=== PATIENT | female | born 1995 | race Caucasian/White ===

== ENCOUNTER 2020-03-24 20:05 | Emergency (ER) | payer OTHER, SELFPAY ==
[2020-03-24 20:25] VITALS: PULSE 93; RESP 16; TEMP 36.4; O2SAT 98
--- NOTE | 2020-03-24 21:15 | ED.FEMALEGU ---
HPI - Female Genitourinary General Chief complaint: CHARGER Stated complaint: bacterial infection,wants to be tested for STDs Source: patient Mode of arrival: ambulatory Limitations: no limitations History of Present Illness HPI Narrative: This is 25-year-old female that presents with a a concern that she acquired an STD has a pneumonia type vaginal odor with no discharge, currently no vaginal discharge or drainage no abdominal pain no dysuria no flank pain or tenderness no hematuria, no fever chills no diarrhea constipation. Patient is concerned of having unprotected intercourse. MD elicited complaint: possible STD Pertinent past history: recurrent UTIs Onset (ago): day(s) Location of symptoms: external genitalia Female Urogenital Radiation: Non-Radiating Consistency: constant Vaginal discharge: none Vaginal bleeding: none Associated symptoms: denies other symptoms Related Data Home Medications Medication Instructions Recorded Confirmed albuterol sulfate 2 puff INHALATION DAILY 05/18/19 03/24/20 clonazepam 0.5 mg PO BID 03/24/20 03/24/20 Allergies Allergy/AdvReac Type Severity Reaction Status Date / Time Sulfonamides Allergy Intermediate Uncoded 10/19/16 16:07 SULFA AND CATS Allergy Mild Uncoded 07/29/07 17:59 Review of Systems Review of Systems: All systems reviewed & are unremarkable except as noted in HPI and below PMFSH Past Medical History Medical History Anxiety Social History Social History Smoking status: Former smoker Gender identity (if verbalized by the patient): Female Exam Const: General: no acute distress and alert Orientation/consciousness: patient oriented x3 HENMT: Head: normal to inspection Eyes: General: appearance normal, both eyes and all related structures Pupils: Equal, round and reactive pupils present EOM: EOMs intact bilaterally Neck: Neck: normal visual inspection, no lymphadenopathy and no meningeal signs Chest: Chest palpation & inspection: normal inspection of the chest Resp: Effort & Inspection: normal respiratory effort Auscultation: clear to auscultation bilaterally Cardio: Rate: regular rate Rhythm: regular rhythm : General: Yes no CVA tenderness Speculum Exam - Vagina: normal appearance of the vagina Speculum Exam - Cervix: normal appearance of the cervix Skin: General skin exam: normal color Rashes: no rashes Extrem: General: normal to inspection and no pedal edema Psych: Mental Status: mental status grossly normal Course Course Emergency Course: pelvic exam was unremarkable with no vaginal irritation or discharge no cervical irritation no cervical motion tenderness. Vital Signs Vital signs: Vital Signs Temperature 36.4 C 03/24/20 20:25 Pulse Rate 93 03/24/20 20:25 Respiratory Rate 16 03/24/20 20:25 Pulse Oximetry 98 03/24/20 20:25 Temperature 36.4 C 03/24/20 20:25 Pulse Rate 93 03/24/20 20:25 Respiratory Rate 16 03/24/20 20:25 Pulse Oximetry 98 03/24/20 20:25 MDM - Female Genitourinary Lab Data Labs: Lab Results 03/24/20 03/24/20 03/24/20 Range/Units 20:48 20:55 20:55 CSF HIV-1 p24 Ag Scrn Pending RPR Pending RPR Titer Add Testing Pending C.trachomatis RNA (TMA) Pending HIV 1&2 Antibody Rapid Pending N.gonorrhoeae RNA (TMA) Pending Critical Care Time Critical Care Time Critical Care Time: No Discharge Plan Discharge Clinical Impression: Exposure to STD Patient Disposition: Home, Self-Care Condition: Stable Instructions: Antibiotic Form, Sexually Transmitted Diseases (ED), Safe Sex Practices (ED) Additional Instructions: take medicine as prescribed and follow-up with primary care physician within 1 to 2 weeks further evaluation and treatment. Prescriptions: New doxycycline hyclate 100 mg capsule 100 mg PO DAILY Qty: 14
[2020-03-24 21:39] LABS: HIV 1 P24 AG Negative (Negative); HIV 1/2 AB Negative (Negative)
[2020-03-24] MEDS: cefTRIAXone 500 MG VIAL IM (21:42)
[2020-03-24] MEDS: DOXYCYCLINE HYCLATE 100 MG TABLET PO (21:42)
[2020-03-24] MEDS: LIDOCAINE HCL 1% LOCAL INJ 20 ML VIAL (21:42)
[2020-03-24 22:10] VITALS: PULSE 90; RESP 15; TEMP 36.6; O2SAT 100
[2020-03-27 13:33] LABS: RPR Screen Non-Reactive (Non-Reactive)
== END 2020-03-24 22:12 | disposition home or self-care (01) ==
PROVIDERS: Emergency Provider Emergency Medicine; PCP Family Medicine
DX: Z20.2 Contact with and (suspected) exposure to infections with a predominantly sexual mode of transmission (principal)
CPT/HCPCS: 36415; 86592; 86703; 87491; 87591; 96372; 99283; 99284; A9270; J0696

== ENCOUNTER 2021-06-19 11:00 | Outpatient (CLI) | payer OTHER, SELFPAY | END 2021-06-19 11:01 | disposition home or self-care (01) | LOC: ANHAUDIO 11:03 | PROVIDERS: PCP Family Medicine; Visit Provider Nurse Practitioner Family | DX: H91.93 Unspecified hearing loss, bilateral (principal) | CPT/HCPCS: 92557; 92567 ==

== ENCOUNTER 2021-07-21 19:30 | Emergency (ER) | payer OTHER, SELFPAY ==
[2021-07-21 19:34] VITALS: BP 144/75; PULSE 127; RESP 20; TEMP 36.6; O2SAT 97
--- NOTE | 2021-07-21 21:20 | PC.NURSE ---
Pt to desk stating I'm going to go to a different hospital because I'm not about to wait all night .
== END 2021-07-21 21:36 | disposition left against medical advice (07) ==
LOC: ANHED 21:29
PROVIDERS: PCP Obstetrics & Gynecology
DX: O99.891 Other specified diseases and conditions complicating pregnancy (principal); R06.02 Shortness of breath; Z3A.18 18 weeks gestation of pregnancy
CPT/HCPCS: 99199

== ENCOUNTER 2021-08-10 12:30 | Outpatient (CLI) | payer OTHER, SELFPAY ==
[2021-08-10 12:58] VITALS: BP 137/88; PULSE 95
[2021-08-10 13:14] LABS: Basophils Percent Auto 0.3 % (0.2-1.2); Eosinophils Absolute Auto 0.1 K/mm3 (0-0.3); Eosinophils Percent Auto 1.3 % (0-4.4); Hematocrit 34.5 % (37.0-47.0); Hemoglobin 11.6 g/dL (12.0-15.0); Immature Granulocyte Absolute 0.05 K/mm3 (0.00-0.031); Immature Granulocyte Percent A 0.5 % (0-0.5); Immature Platelet Fraction Pct 3.6 % (0.9-11.2); Lymphocytes Absolute Auto 2.09 K/mm3 (0.9-3.2); Lymphocytes Percent Auto 19.8 % (18.3-44.2); Mean Corpuscular HGB Conc 33.6 g/dl (32-36); Mean Corpuscular Hemoglobin 31.1 pg (26-34); Mean Corpuscular Volume 92.5 fl (80-100); Mean Platelet Volume 9.8 fl (7.4-10.4); Monocytes Absolute Auto 0.6 K/mm3 (0.1-0.6); Monocytes Percent Auto 5.2 % (2.6-8.5); Neutrophils Absolute Auto 7.7 K/mm3 (1.3-6.7); Neutrophils Percent Auto 72.9 % (45.5-73.1); Platelet Count Result 347 k/mm3 (150-375); Red Blood Count 3.73 M/mm3 (4.2-5.4); Red Cell Distribution Width 13.2 % (11.5-14.5); White Blood Count 10.5 K/mm3 (4.5-10.0)
[2021-08-10 13:16] VITALS: BP 134/85; PULSE 83
[2021-08-10 13:25] LABS: Alanine Aminotransferase 12 U/L (4-35); Albumin Level 3.8 g/dL (3.5-5.1); Alkaline Phosphatase 71 U/L (38-126); Anion Gap 4 mmol/L (8-16); Aspartate Amino Transferase 17 U/L (14-36); Bilirubin,Total 0.7 mg/dL (0.2-1.3); Blood Urea Nitrogen 6 mg/dL (7-17); Calcium 9.3 mg/dL (8.4-10.2); Carbon Dioxide 24 mmol/L (22-30); Chloride 104 mmol/L (98-107); Estimated Glomerular Filt Rate > 60; Glucose 85 mg/dL (65-110); Potassium 4.1 mmol/L (3.4-5.0); Sodium 132 mmol/L (137-145); Uric Acid 5.4 mg/dL (2.5-7.5)
[2021-08-10 13:46] VITALS: BP 132/81; PULSE 78
[2021-08-10 13:47] LABS: Creatinine Urine 170.5 mg/dL
[2021-08-10 13:49] LABS: Add Urine Microscopic? YES; Appearance Urine Clear (Clear); Bacteria Urine Trace /hpf; Bilirubin Urine Negative (Negative); Blood Urine Negative (Negative); Color Urine Yellow (Yellow); Glucose Urine UA Negative (Negative); Ketones Urine Negative (Negative); Leukocyte Esterase Ur Negative LEU/UL (NEGATIVE); Mucus Urine Rare /lpf; Nitrate Urine Negative (Negative); Protein Urine Negative (Negative); RBC Urine 0-2 /hpf (0-2); Specific Grav Ur 1.016 (1.001-1.035); Squamous Epithelial Cell Urine Many /hpf (Few); Urobilinogen Urine Negative mg/dL (<2.0)
[2021-08-10 14:01] VITALS: BP 126/75; PULSE 80
[2021-08-10 14:16] VITALS: BP 134/74; PULSE 79
[2021-08-10 14:31] VITALS: BP 131/76; PULSE 79
[2021-08-10 15:29] LABS: Total Protein Urine Random < 5 mg/dL
[2021-08-10 15:30] LABS: Ur Ttl Prot Creatinine Ratio < 0.03 mg/mg (0-0.20)
== END 2021-08-10 15:50 | disposition home or self-care (01) ==
LOC: ANHOBOP 12:33 → ANHOBPP 12:34
PROVIDERS: Visit Provider Obstetrics & Gynecology
DX: O13.9 Gestational [pregnancy-induced] hypertension without significant proteinuria, unspecified trimester (principal); Z3A.00 Weeks of gestation of pregnancy not specified
CPT/HCPCS: 36415; 80053; 81001; 82570; 84156; 84550; 85025; 85055; 87086; 87088; 99199

== ENCOUNTER 2021-08-25 18:38 | Observation (INO) | payer OTHER, SELFPAY ==
[2021-08-25 19:06] VITALS: BP 130/63; PULSE 101
[2021-08-25] MEDS: DEXTROSE 5%/0.45% SOD CHL 1,000 ML 999 ML IV CONT (19:29)
--- NOTE | 2021-08-25 19:40 | OBADM ---
This patient, Shannan Morrow, admitted to the OB room OB Post 115 for observation. Patient/family oriented to hospital policies and general routines including ID bracelet, bed and alarms, visiting hours, pain management, procedures, bathroom and other care routines, personal items, smoking policy, room service/diet, and visiting hours. Patient/Family are encouraged to report perceived risks to care and to ask questions if they do not understand what they are told or what they should do.
[2021-08-25 19:41] VITALS: BMI 43.0
[2021-08-25] MEDS: ONDANSETRON INJ 4 MG/2 ML VIAL IV PUSH (20:24)
--- NOTE | 2021-09-02 08:57 | PM.OBTRLD ---
OB - Triage/Final Diagnosis Visit Information Comments/Additional reasons for admission: I have assessed the risk for this patient, Shannan Morrow, and determined that she would benefit from observation care. Final Diagnosis (1) Viral gastroenteritis: Code(s): A08.4 - Viral intestinal infection, unspecified Status: Acute
== END 2021-08-25 20:51 | disposition home or self-care (01) ==
PROVIDERS: Admitting Provider Obstetrics & Gynecology; Visit Provider Obstetrics & Gynecology
DX: O99.612 Diseases of the digestive system complicating pregnancy, second trimester (principal); A08.4 Viral intestinal infection, unspecified; Z3A.22 22 weeks gestation of pregnancy
CPT/HCPCS: 96372; G0378; G0379; J2405

== ENCOUNTER 2021-11-01 08:55 | Outpatient (RCR) | payer OTHER, SELFPAY ==
[2021-09-11 09:25] VITALS: BP 124/67; PULSE 81
[2021-11-01 09:23] VITALS: BP 118/70; PULSE 82
== END 2021-12-10 23:59 | disposition home or self-care (01) ==
LOC: ANHOBOP 08:55
PROVIDERS: Visit Provider Obstetrics & Gynecology
DX: O99.891 Other specified diseases and conditions complicating pregnancy (principal); Z48.89 Encounter for other specified surgical aftercare; Z3A.24 24 weeks gestation of pregnancy; O24.419 Gestational diabetes mellitus in pregnancy, unspecified control; O36.8130 Decreased fetal movements, third trimester, not applicable or unspecified; Z3A.32 32 weeks gestation of pregnancy
CPT/HCPCS: 59025

== ENCOUNTER 2021-12-11 18:46 | Observation (INO) | payer OTHER, SELFPAY ==
[2021-12-11 19:05] VITALS: BMI 42.7
[2021-12-11 19:06] VITALS: BP 135/94; PULSE 88
[2021-12-11 19:16] VITALS: BP 132/89; PULSE 80
--- NOTE | 2021-12-11 19:20 | PC.NURSE ---
called [place] CNM notified pt admission for Diarrhea. Mede aware of Hx of Cholecystectomy last January. No contractions, reactive tracing. okay to discharge.
[2021-12-11 19:48] VITALS: BP 132/89; PULSE 65
--- NOTE | 2021-12-16 07:29 | PM.OBTRLD ---
OB - Triage/Final Diagnosis Visit Information Date of evaluation: 12/12/21 Comments/Additional reasons for admission: I have assessed the risk for this patient, Shannan Morrow, and determined that she would benefit from observation care.
--- NOTE | 2021-12-16 07:30 | PM.OBTRLD ---
OB - Triage/Final Diagnosis Visit Information Date of evaluation: 12/12/21 Reason for evaluation: other (diarrhea) Comments/Additional reasons for admission: I have assessed the risk for this patient, Shannan Joseph Morrow, and determined that she would benefit from observation care.
== END 2021-12-11 19:35 | disposition home or self-care (01) ==
PROVIDERS: Admitting Provider Obstetrics & Gynecology; Visit Provider Obstetrics & Gynecology
DX: O99.613 Diseases of the digestive system complicating pregnancy, third trimester (principal); R19.7 Diarrhea, unspecified; Z3A.37 37 weeks gestation of pregnancy
CPT/HCPCS: 59025; G0378; G0379

== ENCOUNTER 2021-12-16 14:49 | Outpatient (CLI) | payer OTHER, SELFPAY ==
[2021-12-16 15:10] VITALS: TEMP 36.6
[2021-12-16 15:19] VITALS: BP 127/71; PULSE 79
[2021-12-16 15:46] VITALS: BP 130/67; PULSE 94
[2021-12-16 15:47] LABS: Basophils Percent Auto 0.4 % (0.2-1.2); Eosinophils Absolute Auto 0.1 K/mm3 (0-0.3); Eosinophils Percent Auto 0.8 % (0-4.4); Hematocrit 33.7 % (37.0-47.0); Hemoglobin 11.1 g/dL (12.0-15.0); Immature Granulocyte Absolute 0.03 K/mm3 (0.00-0.031); Immature Granulocyte Percent A 0.3 % (0-0.5); Lymphocytes Absolute Auto 1.89 K/mm3 (0.9-3.2); Lymphocytes Percent Auto 20.7 % (18.3-44.2); Mean Corpuscular HGB Conc 32.9 g/dl (32-36); Mean Corpuscular Hemoglobin 30.2 pg (26-34); Mean Corpuscular Volume 91.6 fl (80-100); Mean Platelet Volume 9.1 fl (7.4-10.4); Monocytes Absolute Auto 0.5 K/mm3 (0.1-0.6); Monocytes Percent Auto 5.5 % (2.6-8.5); Neutrophils Absolute Auto 6.6 K/mm3 (1.3-6.7); Neutrophils Percent Auto 72.3 % (45.5-73.1); Platelet Count Result 348 k/mm3 (150-375); Red Blood Count 3.68 M/mm3 (4.2-5.4); Red Cell Distribution Width 14.6 % (11.5-14.5); White Blood Count 9.1 K/mm3 (4.5-10.0)
[2021-12-16 15:53] LABS: Creatinine Urine 49.5 mg/dL; Total Protein Urine Random 11 mg/dL; Ur Ttl Prot Creatinine Ratio 0.22 mg/mg (0-0.20)
[2021-12-16 15:58] LABS: Alanine Aminotransferase 16 U/L (6-35); Albumin Level 3.6 g/dL (3.5-5.1); Alkaline Phosphatase 157 U/L (38-126); Anion Gap 6 mmol/L (8-16); Aspartate Amino Transferase 17 U/L (14-36); Bilirubin,Total 0.4 mg/dL (0.2-1.3); Blood Urea Nitrogen 6 mg/dL (7-17); Calcium 8.8 mg/dL (8.4-10.2); Carbon Dioxide 21 mmol/L (22-30); Chloride 109 mmol/L (98-107); Estimated Glomerular Filt Rate > 60; Glucose 91 mg/dL (65-110); Potassium 3.9 mmol/L (3.4-5.0); Sodium 136 mmol/L (137-145); Uric Acid 5.3 mg/dL (2.5-7.5)
[2021-12-16 16:01] VITALS: BP 108/60; PULSE 80
[2021-12-16 16:03] LABS: Appearance Urine Clear (Clear); Bilirubin Urine Negative (Negative); Blood Urine Negative (Negative); Color Urine Yellow (Yellow); Glucose Urine UA Negative (Negative); Ketones Urine Negative (Negative); Leukocyte Esterase Ur Negative LEU/UL (NEGATIVE); Nitrate Urine Negative (Negative); Protein Urine Negative (Negative); Specific Grav Ur 1.015 (1.001-1.035)
[2021-12-16 16:05] LABS: Add Urine Microscopic? NO
[2021-12-16 16:15] VITALS: BP 127/64; PULSE 132
[2021-12-16 16:30] VITALS: BP 129/75; PULSE 79
== END 2021-12-16 16:45 | disposition home or self-care (01) ==
LOC: ANHOBOP 14:57 → ANHOBPP 14:58
PROVIDERS: Visit Provider Advanced Practice Midwife
DX: O13.9 Gestational [pregnancy-induced] hypertension without significant proteinuria, unspecified trimester (principal); Z3A.00 Weeks of gestation of pregnancy not specified
CPT/HCPCS: 36415; 59025; 80053; 81003; 82570; 84156; 84550; 85025; 87086; 99199

== ENCOUNTER 2021-12-21 15:50 | Inpatient (IN) | payer OTHER, SELFPAY ==
[2021-12-21] VITALS (19 sets, daily range): BP systolic 118–142; BP diastolic 44–93; PULSE 78–96; TEMP 36.3–36.4; BMI 43.7
--- OUTSIDE RECORDS SUMMARY | 2021-12-21 15:55 | XMS_ITS | Encounter Summary ---
:1995 Author Reason for Visit OB visit OB [id number] EDC 12/26/2021 LMP 03/21/2021 Assessment and Plan Assessment Note Patient is _38__weeks . Discuss ed plan. 1. Routine care Discussion Note: None recorded.Patient educational handouts: No information available. Plan of Care Reminders Provider Appointments Repeat Pap on or around 01/29/2022 Diane Hendrix MD ? Shilo on or around 02/05/2022 TRACE ozuna RN Lab None recorded. ? ? Referral None recorded. ? ? Procedures None recorded. ? ? Surgeries None recorded. ? ? Imaging None recorded. ? ? Medications Name Start Date ? ? albuterol sulfate 2.5 mg/3 mL (0.083 %) solution for n ebulization ? albuterol sulfate HFA 90 mcg/actuation aerosol inhaler ? clindamycin 1 % topical gel ? APPLY A THIN LAYER TO THE AFFECTED AREA(S) BY TOPICAL ROUTE 2 TIMES PER DAY fluticasone propionate 50 mcg/actuation nasal spray,arias spension ? loperamide 2 mg capsule ? metoclopramide 10 mg tablet ? Take 1 tablet by mouth three times a day as needed fo r nausea and vomiting montelukast 10 mg tablet ? Take 1 tablet every day by oral route. ofloxacin 0.3 % eye drops ? ondansetron HCl 4 mg tablet ? TAKE 1 TABLET BY MOUTH EVERY 4 TO 6 HOURS NEEDED OneTouch Delica Plus Lancet 33 gauge ? USE 4 LANCETS PER DAY TO TEST BLOOD SUGAR AT FASTING AND 1 HOUR AFTER A MEAL OneTouch Verio Flex Meter ? OneTouch Verio test strips ? penicillin V potassium 500 mg tablet ? Take 1 tablet 3 times a day by oral route for 10 days . sertraline 50 mg tablet ? TAKE 1 TABLET BY MOUTH EVERY DAY Symbicort 160 mcg-4.5 mcg/actuation HFA ae
--- OUTSIDE RECORDS SUMMARY | 2021-12-21 15:55 | XMS_ITS ---
:1995 Author Care Team Providers Name Role Phone Diane Hendrix Primary Care Provider Unavailable Allergies Code Code System Name Reaction Severity Status Onset Sulfa (Sulfonamide Antibiotics) ? ? Active ? Medications Name Status Start Date Stop Date ? ? albuterol sulfate 2.5 mg/3 mL (0.083 %) solution for Active ? Not available nebulization albuterol sulfate HFA 90 mcg/actuation aerosol inhaler Active ? Not available amoxicillin 500 mg capsule Completed ? 05/18 amoxicillin 875 mg tablet Completed ? 2021 amoxicillin 875 mg-potassium clavulanate 125 mg tablet Completed ? 10/02/2021 azelastine 137 mcg (0.1 %) nasal spray aerosol Completed ? 05/18/2021 buspirone 15 mg tablet Completed ? cefuroxime axetil 250 mg tablet Completed ? 05/18/2021 cephalexin 500 mg capsule Completed ? 2021 clindamycin 1 % topical gel Active ? Not available clonazepam 0.5 mg tablet Completed ? 021 cyclobenzaprine 5 mg tablet Completed ? 05/04 dicyclomine 10 mg capsule Completed ? 2020 doxycycline hyclate 100 mg capsule Completed ? 05/18/2021 fluconazole 150 mg tablet Completed ? 2021 fluticasone propionate 50 mcg/actuation nasal Active ? Not available spray,suspension hydrocodone 5 mg-acetaminophen 325 mg tablet Completed ? 10/02/2021 ibuprofen 600 mg tablet Completed ? 05/18/20 ibuprofen 800 mg tablet Completed ? 05/18/20 21 loperamide 2 mg capsule Active ? Not avai lable methylprednisolone 4 mg tablets in a dose pack Completed ? 05/18/2021 metoclopramide 10 mg tablet Active ? Not available metronidazole 0.75 % vaginal gel Completed ? 07/08/2021
--- OUTSIDE RECORDS SUMMARY | 2021-12-21 15:56 | XMS_ITS | Encounter Summary ---
:1995 Author Reason for Visit None recorded. Assessment and Plan 1. Gestational diabetes mellitus, class A>1< ? non-stress test Discussion Note: None recorded.Patient educational handouts: No information available. Plan of Care Reminders Provider Appointments Repeat Pap on or around 01/29/2022 Diane Hendrix MD ? Xany on or around 02/05/2022 TRACE ozuna RN Lab None recorded. ? ? Referral None recorded. ? ? Procedures None recorded. ? ? Surgeries None recorded. ? ? Imaging Non-stress Test 12/09/2021 [place] Medications Name Start Date ? ? albuterol [...] EVERY DAY Symbicort 160 mcg-4.5 mcg/actuation HFA aerosol inhale r ?
--- OUTSIDE RECORDS SUMMARY | 2021-12-21 15:56 | XMS_ITS | Encounter Summary ---
[...] None recorded. ? ? Imaging Non-stress Test 11/16/2021 [place] Medications Name Start Date ? ? albuterol [...]
--- OUTSIDE RECORDS SUMMARY | 2021-12-21 15:56 | XMS_ITS | Encounter Summary ---
:1995 Author Reason for Visit OB visit OB [id number] EDC 12/26/2021 LMP 03/21/2021 Assessment and Plan Assessment Note Patient is _35__weeks . Discuss ed plan. 1. Routine care 2. Hidradenitis suppurativa ? clindamycin 1 % topical gel Discussion Note: None recorded.Patient educational handouts: No [...]
--- OUTSIDE RECORDS SUMMARY | 2021-12-21 15:56 | XMS_ITS | Encounter Summary ---
:1995 Author Reason for Visit None recorded. Assessment and Plan 1. Maternal obesity complicating pregna ncy, childbirth and the puerperium, antepartum ? US, obstetric, biophysical profile + non-stress test Discussion Note: None recorded.Patient educational handouts: No information available. Plan of Care Reminders Provider Appointments Repeat Pap on or around Diane pascual MD 01/29/2022 ? Shilo on or around RN Schedule, RN 02/05/2022 Lab None recorded. ? ? Referral None recorded. ? ? Procedures None recorded. ? ? Surgeries None recorded. ? ? Imaging US, Obstetric, 11/25/2021 [place] Biophysical Profile + Non-stress Test Medications Name Start Date ? ? albuterol [...] Take 1 tablet 3 times a day b
--- OUTSIDE RECORDS SUMMARY | 2021-12-21 15:56 | XMS_ITS | Encounter Summary ---
:1995 Author Reason for Visit OB visit OB [id number] EDC 12/26/2021 LMP 03/21/2021 Assessment and Plan Assessment Note Patient is _37__weeks . Discuss ed plan. 1. Acute abscess of skin and/or subcuta neous tissue f/u one week Discussion Note: None recorded.Patient educational handouts: No information available. Plan of Care Reminders Provider Appointments Repeat Pap on or around 01/29/2022 Diane Hendrix MD ? [place] on or around 02/05/2022 TRACE ozuna RN [...] mg tablet ? TAKE 1 TABLET BY M
--- OUTSIDE RECORDS SUMMARY | 2021-12-21 15:56 | XMS_ITS | Encounter Summary ---
:1995 Author Reason for Visit None recorded. Assessment and Plan 1. Gestational diabetes mellitus, class A>1< ? US, obstetric, biophysical profile Discussion Note: None recorded.Patient educational handouts: No information available. Plan of Care Reminders Provider Appointments Repeat Pap on or around Diane pascual MD 01/29/2022 ? Shilo on or around RN Schedule, RN 02/05/2022 Lab None recorded. ? ? Referral None recorded. ? ? Procedures None recorded. ? ? Surgeries None recorded. ? ? Imaging US, Obstetric, 11/09/2021 [place] Biophysical Profile Medications Name Start Date ? ? albuterol [...]
--- OUTSIDE RECORDS SUMMARY | 2021-12-21 15:56 | XMS_ITS | Encounter Summary ---
[...] None recorded. ? ? Imaging Non-stress Test 12/16/2021 [place] Medications Name Start Date ? ? albuterol [...]
--- OUTSIDE RECORDS SUMMARY | 2021-12-21 15:56 | XMS_ITS | Encounter Summary ---
:1995 Author Reason for Visit None recorded. Assessment and Plan 1. Maternal obesity complicating pregna ncy, childbirth and the puerperium, antepartum ? US, obstetric, follow-up Discussion Note: None recorded.Patient educational handouts: No information available. Plan of Care Reminders Provider Appointments Repeat Pap on or around Diane pascual MD 01/29/2022 ? Shilo on or around RN Schedule, RN 02/05/2022 Lab None recorded. ? ? Referral None recorded. ? ? Procedures None recorded. ? ? Surgeries None recorded. ? ? Imaging US, Obstetric, 11/16/2021 [place] Follow-up Medications Name Start Date ? ? albuterol [...]
--- OUTSIDE RECORDS SUMMARY | 2021-12-21 15:56 | XMS_ITS | Encounter Summary ---
:1995 Author Reason for Visit OB visit Assessment and Plan Assessment Note Patient is ___weeks . Discussed plan. 1. Routine care Discussion Note: None [...] mcg-4.5 mcg/actuation HFA aerosol inhale r ? INHALE 2 PUFFS BY MOUTH TWICE AMINAH
--- OUTSIDE RECORDS SUMMARY | 2021-12-21 15:56 | XMS_ITS | Encounter Summary ---
[...] None recorded. ? ? Imaging Non-stress Test 12/01/2021 [place] Medications Name Start Date ? ? albuterol [...]
--- OUTSIDE RECORDS SUMMARY | 2021-12-21 15:56 | XMS_ITS | Encounter Summary ---
[...] None recorded. ? ? Imaging Non-stress Test 11/25/2021 [place] Medications Name Start Date ? ? albuterol [...]
--- OUTSIDE RECORDS SUMMARY | 2021-12-21 15:56 | XMS_ITS | Encounter Summary ---
:1995 Author Reason for Visit OB visit Assessment and Plan 1. Abscess of vulva ? cephalexin 500 mg capsule 2. Gestational diabetes mellitus 3. Maternal obesity complicating pregna ncy, childbirth and the puerperium, antepartum Discussion Note: None recorded.Patient educational handouts: No [...]
--- OUTSIDE RECORDS SUMMARY | 2021-12-21 15:56 | XMS_ITS | Encounter Summary ---
[...] None recorded. ? ? Imaging US, Obstetric, 12/09/2021 [place] Biophysical Profile + Non-stress Test Medications Name [...]
--- OUTSIDE RECORDS SUMMARY | 2021-12-21 15:57 | XMS_ITS | Encounter Summary ---
:1995 Author Reason for Visit None recorded. Assessment and Plan 1. Maternal obesity complicating pregna ncy, childbirth and the puerperium, antepartum ? non-stress test Discussion Note: None recorded.Patient educational handouts: No information available. Plan of Care Reminders Provider Appointments Repeat Pap on or around 01/29/2022 Diane Hendrix MD ? Xany on or around 02/05/2022 TRACE ozuna RN Lab None recorded. ? ? Referral None recorded. ? ? Procedures None recorded. ? ? Surgeries None recorded. ? ? Imaging Non-stress Test 11/09/2021 [place] Medications Name Start Date ? ? albuterol [...]
--- OUTSIDE RECORDS SUMMARY | 2021-12-21 15:57 | XMS_ITS | Encounter Summary ---
[...] None recorded. ? ? Imaging US, Obstetric, 10/23/2021 [place] Follow-up Medications Name Start Date ? ? [...]
--- OUTSIDE RECORDS SUMMARY | 2021-12-21 15:57 | XMS_ITS | Encounter Summary ---
:1995 Author Reason for Visit None recorded. Assessment and Plan Assessment Note Diet Teaching 1. Gestational diabetes mellitus, class A>1< Pt here for diet teaching. Diet teachgibran g completed. Carb counts for meals and snacks reviewed. Pt instructed on how to read n utritional labels and instructed on researching carb counts for fresh fruits and vegetables. Pt provided with print outs with some fresh food carb counts and onl ine resources reinforced for checking fresh food serving sizes and carb counts. Pt i nstructed on blood sugar level goals and importance of checking blood sugar and k eeping blood sugar log. Pt instructed on high protein low carb and provided with food recommendations. 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 Pt's biggest concerns were sugary drinks and meal prep. Pt instruct ed on importance of increased water intake and informed of low sugar drink packet m william to replace her sugary drinks. Pt verbalized understanding and has already made some changes to zero sugar drinks. Pt provided with recommendations to help wi th meal prep and keto friendly crock pot meal recipes discussed. Pt has an appt schedu led with SP for next week to review her BS log. Pt verbalized understanding of info rmation discussed. Leonarda Hernandez RN Discussion Note: None recorded.Patient educational handouts: No information available. Plan of Care Reminders Provider Appointments Repeat Pap on or around 01/29/2022 Diane Hendrix MD ? Xany on or around 02/05/2022 TRACE ozuna RN Lab None recorded. ? ? Referral None recorded. ? ? Procedures None recorded. ? ? Surgeries None recorded. ? ?
--- OUTSIDE RECORDS SUMMARY | 2021-12-21 15:57 | XMS_ITS | Encounter Summary ---
[...] None recorded. ? ? Imaging Non-stress Test 11/04/2021 [place] Medications Name Start Date ? ? albuterol [...]
--- OUTSIDE RECORDS SUMMARY | 2021-12-21 15:57 | XMS_ITS | Encounter Summary ---
:1995 Author Reason for Visit OB visit OB [id number] EDC 12/26/2021 LMP 03/21/2021 Assessment and Plan Assessment Note Patient is 32__weeks . Discusse d plan. 1. Routine care Discussion Note: None [...] EVERY DAY Symbicort 160 mcg-4.5 mcg/actuation HFA aero
--- OUTSIDE RECORDS SUMMARY | 2021-12-21 15:57 | XMS_ITS | Encounter Summary ---
:1995 Author Reason for Visit None recorded. Assessment and Plan 1. Reduced movement ? non-stress test Discussion Note: None recorded.Patient educational handouts: No information available. Plan of Care Reminders Provider Appointments Repeat Pap on or around 01/29/2022 Diane Hendrix MD ? Xany on or around 02/05/2022 TRACE ozuna RN Lab None recorded. ? ? Referral None recorded. ? ? Procedures None recorded. ? ? Surgeries None recorded. ? ? Imaging Non-stress Test 10/13/2021 [place] Medications Name Start Date ? ? albuterol [...]
--- OUTSIDE RECORDS SUMMARY | 2021-12-21 15:57 | XMS_ITS | Encounter Summary ---
:1995 Author Reason for Visit OB visit Assessment and Plan 1. Asthma in 2. Depressive disorder 3. Genital herpes simplex 4. Gestational diabetes mellitus Discussion Note: None recorded.Patient educational handouts: No [...]
--- OUTSIDE RECORDS SUMMARY | 2021-12-21 15:57 | XMS_ITS | Encounter Summary ---
:1995 Author Reason for Visit OB visit OB [id number] EDC 12/26/2021 LMP 03/21/2021 Assessment and Plan Assessment Note Patient is _27__weeks . Discuss ed plan. 1. Routine care [...]
--- OUTSIDE RECORDS SUMMARY | 2021-12-21 15:57 | XMS_ITS | Encounter Summary ---
:1995 Author Reason for Visit OB visit OB [id number] EDC 12/26/2021 LMP 03/21/2021 Assessment and Plan Assessment Note Patient is _30__weeks . Discuss ed plan. 1. Routine care [...] EVERY DAY Symbicort 160 mcg-4.5 mcg/actuation HFA a
--- OUTSIDE RECORDS SUMMARY | 2021-12-21 15:57 | XMS_ITS | Encounter Summary ---
:1995 Author Reason for Visit None recorded. Assessment and Plan 1. Gestational diabetes mellitus, class A>1< ? US, obstetric, biophysical profile + non-stress [...] None recorded. ? ? Imaging US, Obstetric, 11/04/2021 [place] Biophysical Profile + Non-stress Test Medications Name [...]
--- NOTE | 2021-12-21 16:54 | WPDANESEPP ---
Anes - Eval Pre Procedure Procedure: labor epidural Date/Time: 12/21/21 16:54 Surgeon: oma Pre Op Diagnosis: iol Patient Data Age: 26 Gender: F Height: Weight: Last Vital Signs Pulse 93 12/21/21 16:31 BP 128/80 12/21/21 16:31 Allergies Allergy/AdvReac Type Severity Reaction Status Date / Time Sulfonamides Allergy Intermediate Hives Uncoded 11/25/21 12:17 SULFA AND CATS Allergy Mild Hives Uncoded 11/25/21 12:17 Home Medications Medication Instructions Recorded Confirmed Type albuterol sulfate 90 mcg/actuation 2 puff inhalation PRN PRN 05/18/19 12/16/21 History aerosol inhaler Shortness Of Breath acetaminophen 500 mg tablet 500 mg PO Q6H PRN Pain 09/11/21 12/16/21 History (Tylenol Extra Strength) aspirin 81 mg tablet 81 mg PO DAILY 09/11/21 12/16/21 History omega-3 fatty acids 1 cap PO DAILY 09/11/21 12/16/21 History vit no.95-ferrous 1 tablet PO DAILY 09/11/21 12/16/21 History fumarate 28 mg-folic acid 800 mcg tablet () sertraline 50 mg tablet 50 mg PO DAILY 09/11/21 12/16/21 History budesonide-formoterol HFA 160 1 inh inhalation PRN PRN asthma 12/16/21 12/16/21 History mcg-4.5 mcg/actuation aerosol inhaler (Symbicort) Patient hx anesthesia problems: none Family hx anesthesia problems: none Results Review: All pre-operative results and documents have been reviewed as part of the pre-operative evaluation. [facility] Past Medical History Medical History (Updated 09/02/21 @ 08:58 by Diane Hendrix MD) Anxiety Family History Family History (Updated 11/25/21 @ 12:20 by Emily Ying RN) Mother Asthma Chronic obstructive pulmonary disease Bipolar 1 disorder Depression Father Bipolar 1 disorder Hypertension Grandparent Depression Heart disease Skin cancer Social History Social History Smoking status: Former smoker Substance use: current Last use: last time in october 2021 Gender identity (if verbalized by the patient): Female Spiritual care concerns: No Exam Day of Procedure 12/21/21 16:54
--- NOTE | 2021-12-21 17:14 | LDADM ---
This patient, Shannan Morrow, was admitted to Labor/Delivery/Recovery 108 on 12/21/21 at 15:50. Plans for labor, pain management and were discussed with patient. Patient/family oriented to hospital policies and general routines including ID bracelet, bed and alarms, visiting hours, pain management, procedures, bathroom and other care routines, personal items, smoking policy, room service/diet and guest tray routines, security routines, and visiting hours. Patient/Family are encouraged to report perceived risks to care and to ask questions if they do not understand what they are told or what they should do. See [facility] for further documentation.
[2021-12-21 17:54] LABS: Basophils Percent Auto 0.3 % (0.2-1.2); Eosinophils Absolute Auto 0.1 K/mm3 (0-0.3); Eosinophils Percent Auto 0.6 % (0-4.4); Hematocrit 34.5 % (37.0-47.0); Hemoglobin 11.5 g/dL (12.0-15.0); Immature Granulocyte Absolute 0.04 K/mm3 (0.00-0.031); Immature Granulocyte Percent A 0.4 % (0-0.5); Lymphocytes Absolute Auto 2.12 K/mm3 (0.9-3.2); Lymphocytes Percent Auto 21.1 % (18.3-44.2); Mean Corpuscular HGB Conc 33.3 g/dl (32-36); Mean Corpuscular Hemoglobin 30.3 pg (26-34); Mean Platelet Volume 9.3 fl (7.4-10.4); Monocytes Absolute Auto 0.6 K/mm3 (0.1-0.6); Monocytes Percent Auto 6.4 % (2.6-8.5); Neutrophils Absolute Auto 7.2 K/mm3 (1.3-6.7); Neutrophils Percent Auto 71.2 % (45.5-73.1); Platelet Count Result 358 k/mm3 (150-375); Red Blood Count 3.79 M/mm3 (4.2-5.4); Red Cell Distribution Width 14.6 % (11.5-14.5)
[2021-12-21] MEDS: miSOPROStol 25 MCG TABLET VAGINAL (18:17)
[2021-12-21 18:33] LABS: Glucose Point of Care 72 mg/dl (65-105)
[2021-12-21] MEDS: SERTRALINE HCL 50 MG TABLET PO (22:31)
[2021-12-21] MEDS: OXYTOCIN 30 UNITS/NS 500 ML 30 UNITS/500 ML BAG 6 UNITS IV CONT (22:31)
[2021-12-21] MEDS: LACTATED RINGERS 1,000 ML 125 ML IV CONT (22:31)
[2021-12-21] MEDS: MONTELUKAST SODIUM 10 MG TABLET PO (22:31)
[2021-12-21 23:34] LABS: Glucose Point of Care 113 mg/dl (65-105)
[2021-12-22] VITALS (292 sets, daily range): BP systolic 102–151; BP diastolic 33–100; PULSE 63–209; TEMP 36.1–36.7; O2SAT 93–100
[2021-12-22 03:19] LABS: Glucose Point of Care 78 mg/dl (65-105)
[2021-12-22 07:20] LABS: Glucose Point of Care 86 mg/dl (65-105)
--- NOTE | 2021-12-22 07:33 | PM.IMHP ---
H&P: HPI History of Present Illness Date/Time: 12/22/21 07:33 Chief Complaint: induction of labor Narrative: Shannna is a 26yo at 39.3 IOL. Has GDM diet controlled, HSV on valtrex, asthma, obesity, COVID this , and depression on zoloft. Got cytotec last night. Denies any sx of HSV outbreak. Review of Systems Review of Systems: All systems reviewed & are unremarkable except as noted in HPI and below PMFSH Past Medical History Medical History (Updated 12/22/21 @ 07:37 by Diane Hendrix MD) Anxiety Family History Family History (Updated 11/25/21 @ 12:20 by Emily Ying RN) Mother Asthma Chronic obstructive pulmonary disease Bipolar 1 disorder Depression Father Bipolar 1 disorder Hypertension Grandparent Depression Heart disease Skin cancer Social History Social History Smoking status: Former smoker Tobacco type: cigars Second hand tobacco smoke exposure: No Substance use: current Last use: last time in october 2021 Gender identity (if verbalized by the patient): Female Spiritual care concerns: No Meds Home Medications and Allergies Home Medications Medication Instructions Recorded Confirmed Type aspirin 81 mg tablet 81 mg PO DAILY 09/11/21 12/21/21 History omega-3 fatty acids 1 cap PO DAILY 09/11/21 12/21/21 History vit no.95-ferrous 1 tablet PO DAILY 09/11/21 12/21/21 History fumarate 28 mg-folic acid 800 mcg tablet () sertraline 50 mg tablet 50 mg PO DAILY 09/11/21 12/21/21 History budesonide-formoterol HFA 160 1 inh inhalation PRN PRN asthma 12/16/21 12/21/21 History mcg-4.5 mcg/actuation aerosol inhaler (Symbicort) montelukast 10 mg tablet 1 tablet PO DAILY 12/21/21 12/21/21 History Allergies Allergy/AdvReac Type Severity Reaction Status Date / Time Sulfonamides Allergy Intermediate Hives Uncoded 12/21/21 17:38 SULFA AND CATS Allergy Mild Hives Uncoded 12/21/21 17:38 Vital Signs Vital Signs - 24 hr 12/21/21 16:23 12/21/21 16:31 12/21/21 17:16 Temperature Pulse Rate 96 93 82 Blood Pressure 134/80 128/80 123/83 Pulse Oximetry Oxygen Delivery 12/21/21 17:31 12/21/21 17:46 12/21/21 17:23 Temperature 97.3 F L Pulse Rate 86 82 Blood Pressure 118/77 133/68 Pulse Oximetry Oxygen Delivery 12/21/21 18:01 12/21/21 18:16 12/21/21 18:31 Temperature Pulse Rate 84 87 82 Blood Pressure 130/79 133/76 133/79 Pulse Oximetry Oxygen Delivery 12/21/21 19:01 12/21/21 19:31 12/21/21 20:01 Temperature Pulse Rate 81 80 78 Blood Pressure 137/91 H 125/69 135/70 Pulse Oximetry Oxygen Delivery 12/21/21 20:31 12/21/21 21:01 12/21/21 18:34 Temperature 97.3 F L Pulse Rate 91 80 Blood Pressure 129/80 120/77 Pulse Oximetry Oxygen Delivery 12/21/21 21:09 12/21/21 23:32 12/21/21 23:48 Temperature 97.6 F Pulse Rate 81 93 Blood Pressure 142/44 H 133/93 H Pulse Oximetry Oxygen Delivery 12/22/21 00:01 12/22/21 00:16 12/22/21 00:31 Temperature Pulse Rate 89 78 87 Blood Pressure 124/81 126/76 128/71 Pulse Oximetry Oxygen Delivery 12/22/21 01:44 12/22/21 01:46 12/21/21 22:47 Temperature 97.6 F Pulse Rate 75 83 Blood Pressure 137/82 133/75 Pulse Oximetry Oxygen Delivery 12/22/21 00:30 12/22/21 01:49 12/22/21 02:01 Temperature 97.9 F 97.7 F Pulse Rate 91 Blood Pressure 110/85 Pulse Oximetry Oxygen Delivery 12/22/21 02:16 12/22/21 02:31 12/22/21 02:46 Temperature Pulse Rate 73 72 75 Blood Pressure 121/61 119/51 L 120/55 L Pulse Oximetry Oxygen Delivery 12/22/21 03:01 12/22/21 03:16 12/22/21 03:31 Temperature Pulse Rate 72 73 76 Blood Pressure 118/57 L 130/69 127/80 Pulse Oximetry Oxygen Delivery 12/22/21 03:46 12/22/21 04:01 12/22/21 04:16 Temperature Pulse Rate 81 69 76 Blood Pressure 128/73 123/100
[2021-12-22] MEDS: LACTATED RINGERS 1,000 ML 125 ML IV CONT ×4 (07:45→23:22)
[2021-12-22 10:50] LABS: Amphetamine Screen Urine Negative (Negative); Barbiturate Screen Urine Negative (Negative); Benzodiazepines Screen Urine Negative (Negative); Cannabinoid Screen Urine Negative (Negative); Cocaine Screen Urine Negative (Negative); Methadone Screen Urine Negative (Negative); Opiate Screen Urine Negative (Negative); Phencyclidine Screen Urine Negative (Negative)
[2021-12-22 11:38] LABS: Glucose Point of Care 72 mg/dl (65-105)
[2021-12-22 16:19] LABS: Glucose Point of Care 85 mg/dl (65-105)
[2021-12-22 17:16] LABS: Rapid Plasma Reagin Non-Reactive (NonReactive)
[2021-12-22] MEDS: ONDANSETRON INJ 4 MG/2 ML VIAL IV PUSH (18:07)
[2021-12-22 20:06] LABS: Glucose Point of Care 71 mg/dl (65-105)
[2021-12-22 21:37] LABS: Glucose Point of Care 63 mg/dl (65-105)
[2021-12-22 23:39] LABS: Glucose Point of Care 78 mg/dl (65-105)
[2021-12-23] VITALS (100 sets, daily range): BP systolic 114–158; BP diastolic 52–91; PULSE 70–112; RESP 1–19; TEMP 36.1–36.8; O2SAT 83–100
[2021-12-23 01:38] LABS: Glucose Point of Care 72 mg/dl (65-105)
[2021-12-23] MEDS: AMPICILLIN 2 GM/NS 100 ML 2 GM/100 ML BAG IVPB (02:15)
[2021-12-23 04:17] LABS: Glucose Point of Care 127 mg/dl (65-105)
[2021-12-23] MEDS: AMPICILLIN 1 GM/NS 50 ML 1 GM/50 ML BAG IVPB (06:10)
[2021-12-23 06:20] LABS: Glucose Point of Care 82 mg/dl (65-105)
--- NOTE | 2021-12-23 07:39 | P.PNOB_ITS ---
Pain Control Date/time seen: 12/23/21 07:39 Comments: back pain even with epidural Pelvic Exam Dilation (cm): 7 Effacement (%): 90 station: -2 Amniotic membrane status: Ruptured Contractions Monitor mode: Internal Contraction frequency: 2 Contraction pattern: Regular Status status: Category l Assessment and Plan Assessment: induction ongoing Comments: has been 6-7 cm for hours. tried multiple position changes. ctx still inadequate, replaced IUPC. will try to increase pitocin to get adequate contr actions, but pt is getting weary and we agree to a CS in a couple hours if no change. FHT category 1 BS all good.
[2021-12-23 08:24] LABS: Glucose Point of Care 80 mg/dl (65-105)
--- NOTE | 2021-12-23 09:29 | WPDHPUPDATE1 ---
History and Physical Update Update Date/Time: 12/23/21 09:29 History and Physical has been reviewed, including an updated exam of the patient. There are NO changes in the patient's condition except epidural not providing adequate pain relief. Still no cervical change. COnsented for CS. Will do spinal. Risks, benefits, and alternatives have been discussed and questions answered. Patient agrees to proceed with procedure.
[2021-12-23] MEDS: ceFAZolin 3 GM/D5W 100 ML 100 ML IVPB (09:55)
[2021-12-23] MEDS: LACTATED RINGERS 1,000 ML 125 ML IV CONT (10:55)
--- NOTE | 2021-12-23 11:12 | PM.OBPRVD ---
OB - Delivery Note Procedure Delivery date: 12/23/21 Procedure: Procedures Operation Date: 12/23/21 09:30 Actual Procedure Side Surgeon p Section Bilateral Diane Hendrix MD Events: Gestational Diabetes Intrapartal Events: Arrest of Dilation and Failed Induction of Labor Induction method: AROM, Per Pitocin Protocol and Per Cervidil Protocol Delivery monitor: External FHT and Internal Uterine Route of delivery: Prior to decision for section, ACOG/SMFM labor guidelines were considered and discussed with the patient and staff. Decision made to proceed with the section.: Yes Specimen: Yes (placenta) Quantitative Blood Loss (ml): 890 Anesthesia type: Spinal Disposition: Floor Complications: none Narrative: The patient was taken to the OR and received spinal anesthesia. She was placed in dorsal supine position with left lateral tilt. SCDs and turcios were placed. She was prepped and draped in the normal sterile fashion. A Pfannensteil skin incision was made and carried through to the underlying layer of fascia. The fascia was incised in the midline and then extended laterally using Wilkins scissors. The muscles were in the midline and the peritoneum was entered bluntly. The peritoneal incision was extended inferiorly and superiorly with care to avoid the bladder. The bladder blade was then inserted, the vesicouterine peritoneum was grasped, incised with Metzenbaum scissors, and a bladder flap created. The bladder blade was reinserted. A low transverse uterine incision was made with a scalpel and extended bluntly. AROM was performed and fluid was noted to be clear. The head was delivered, followed by the remainder of the baby. The baby's oropharynx was suctioned. After 30 seconds, the cord was clamped and cut and the was handed off. Cord blood was obtained and the placenta was then removed manually. The uterus was exteriorized. A moist lap sponge was used to curette the endometrium. The uterine incision was then closed with one layer of 0-Vicryl in a running, locking fashion. Good hemostasis was noted. The posterior cul de sac was irrigated with normal saline and cleared of all clot and debris. The uterus was returned to the abdomen. Both lateral gutters were then irrigated. The rectus muscles were inspected and found to be hemostatic. The fascia was reapproximated using 0-Vicryl in running fashion. The subcutaneous tissue was irrigated with normal saline and made hemostatic with Bovie electrocautery. The subcutaneous tissue was reapproximated with a layer of running 2-0 plain gut. The skin was then closed with absorbable sutures. Steri strips and a bandage were applied. The uterus was evacuated. The patient tolerated the procedure very well. All counts were correct. She was taken to the recovery room in good condition. Baby Date of : 12/23/21 Time of : 10:09 Weeks of gestation at delivery: 39 Infant gender: Male Weight (pounds): 8 Weight (ounces): 8 presentation: vertex Placenta delivery description: Manual Removal Cord Vessel Description: 3 Vessels, Nuchal Cord and Delayed Cord Clamping score one minute: 8 score five minutes: 8
--- NOTE | 2021-12-23 13:43 | PC.NURSE ---
PT arrived on unit via stretcher accompanied by mother and taken to room 286. PT alert and awake and assisted with transfer to bed via maxi air. PT introductions made and plan of care discussed per post op c section, pain management, breast feeding, daily care activities. PT and mother both recipients of such instructions. PT received instructions per one to one discussion, mom baby care guide and demonstrations this shift. no barriers to learning identified at this time. PT verbalized understanding of such care.
[2021-12-23] MEDS: fentaNYL CITRATE INJ (*CRX) 100 MCG/2 ML VIAL 25 MCG IV PUSH (14:02)
[2021-12-23] MEDS: SIMETHICONE 80 MG TAB.CHEW PO (14:39)
[2021-12-23] MEDS: KETOROLAC 30 MG/ML VIAL (*BKC) IV PUSH ×2 (14:39→19:36)
[2021-12-23] MEDS: FLUTICASONE/SALMETEROL 115-21 MCG INHALER 1 PUFF 2 PUFF INHALATION (22:08)
[2021-12-23] MEDS: KCL 20 MEQ/D5/0.45% SOD CHL 1,000 ML 125 ML IV CONT (22:10)
[2021-12-23] MEDS: HYDROcodone/acetaminophen (*CRX) 10-325 MG TABLET 1 TAB PO (23:17)
[2021-12-24] VITALS: BP 117/69; PULSE 96; RESP 18; TEMP 36.6
[2021-12-24 03:59] VITALS: BP 116/80; PULSE 98; RESP 18; TEMP 36.7; O2SAT 98
[2021-12-24] MEDS: HYDROcodone/acetaminophen (*CRX) 5-325 MG TABLET 1 TAB PO ×5 (04:43→21:55)
[2021-12-24] MEDS: IBUPROFEN 600 MG TABLET PO ×3 (04:44→21:55)
[2021-12-24 05:13] LABS: Basophils Percent Auto 0.3 % (0.2-1.2); Eosinophils Absolute Auto 0.1 K/mm3 (0-0.3); Eosinophils Percent Auto 0.5 % (0-4.4); Hematocrit 29.1 % (37.0-47.0); Hemoglobin 9.7 g/dL (12.0-15.0); Immature Granulocyte Absolute 0.08 K/mm3 (0.00-0.031); Immature Granulocyte Percent A 0.6 % (0-0.5); Lymphocytes Absolute Auto 2.25 K/mm3 (0.9-3.2); Lymphocytes Percent Auto 15.7 % (18.3-44.2); Mean Corpuscular HGB Conc 33.3 g/dl (32-36); Mean Corpuscular Hemoglobin 30.6 pg (26-34); Mean Corpuscular Volume 91.8 fl (80-100); Mean Platelet Volume 9.1 fl (7.4-10.4); Monocytes Absolute Auto 0.9 K/mm3 (0.1-0.6); Monocytes Percent Auto 6.1 % (2.6-8.5); Neutrophils Percent Auto 76.8 % (45.5-73.1); Platelet Count Result 301 k/mm3 (150-375); Red Blood Count 3.17 M/mm3 (4.2-5.4); Red Cell Distribution Width 14.6 % (11.5-14.5); White Blood Count 14.3 K/mm3 (4.5-10.0)
--- NOTE | 2021-12-24 07:43 | PM.OBPNVD ---
OB - PN: Subj Subjective Date/time seen: 12/24/21 07:43 Patient comments: no complaints, pain well controlled, tolerating diet and flatus present OB - PN: Obj Data Labs CBC & Chem 7: 12/24/21 05:07 Labs: Laboratory Results - last 24 hr 12/23/21 12/24/21 08:18 05:07 WBC 14.3 H RBC 3.17 L Hgb 9.7 L Hct 29.1 L MCV 91.8 MCH 30.6 MCHC 33.3 RDW 14.6 H Plt Count 301 MPV 9.1 Immature Gran % (Auto) 0.6 H Neut % (Auto) 76.8 H Lymph % (Auto) 15.7 L [place] % (Auto) 6.1 Eos % (Auto) 0.5 Baso % (Auto) 0.3 Lymph # (Auto) 2.25 [place] # (Auto) 0.9 H Eos # (Auto) 0.1 Baso # (Auto) 0.0 Abs Immat Gran (auto) 0.08 H Absolute Neuts (auto) 11.0 H Absolute Nucleated RBC 0.0 Nucleated RBC % 0.0 POC Capillary Glucose 80 OB - PN A/P Plan day: 1 Comments: Post Op LTCS - no problems, routine recovery Time Spent With Patient Time: Total time spent is greater than 50% in coordination of care (as documented) at patient's floor/unit and/or counseling patient: Exam Const: General: cooperative, healthy appearing, comfortable and no acute distress Resp: Auscultation: no crackles, no rales, no rhonchi and no wheezes Cardio: Rhythm: regular rhythm Heart sounds: no click and no murmurs GI: Inspection: non-distended Auscultation: normal bowel sounds Extrem: General: normal to inspection, no pedal edema and no calf tenderness
[2021-12-24 07:55] VITALS: BP 112/61; PULSE 82; RESP 18; TEMP 36.3; O2SAT 100
[2021-12-24] MEDS: MULTIVIT/MIN/PREN/FOL AC/IRON TABLET 1 TAB PO (08:57)
[2021-12-24] MEDS: DOCUSATE SODIUM 100 MG CAPSULE PO ×2 (08:57→16:14)
[2021-12-24] MEDS: SERTRALINE HCL 50 MG TABLET PO (08:58)
[2021-12-24] MEDS: POLYSACCHARIDE IRON COMPLEX 150 MG CAPSULE PO ×2 (09:00→16:14)
[2021-12-24] MEDS: SIMETHICONE 80 MG TAB.CHEW PO (09:02)
--- NOTE | 2021-12-24 11:48 | WPDANLDNPN2 ---
Anes-Prog Note L&D-Neuraxial Date/Time: 12/24/21 11:48 Patient feedback: Patient satisfied with post-operative pain management.
--- NOTE | 2021-12-24 11:48 | WPDANLDPN2 ---
Anes-Prog Note L&D Date/Time: 12/24/21 11:48 Neuro status: Neuro function grossly intact. Vital Signs: Last Vital Signs Temp 36.3 C L 12/24/21 07:55 Pulse 82 12/24/21 07:55 Resp 18 12/24/21 07:55 BP 112/61 12/24/21 07:55 Pulse Ox 100 12/24/21 07:55 O2 Del Method Room Air 12/24/21 04:40 Pain score (VAS): 0 I/O: Intake & Output 12/23/21 12/24/21 12/24/21 23:59 07:59 15:59 Intake Total 480 1900 Output Total 900 1675 300 Balance -420 225 -300 Patient feedback: Patient satisfied with anesthetic care.
[2021-12-24] MEDS: MONTELUKAST SODIUM 10 MG TABLET PO (11:57)
--- NOTE | 2021-12-24 15:43 | PC.NURSE ---
[id number] Introductions were made and Mother led the conversation with her experience and plan to feed her so far and her ability to continue with the plan of attempting to breastfeed/pump/supplement to feed . Reminded mother to use good handwashing technique to prevent infection. Mother is feeding appropriately for growth of infant and understands stimulating to eat if needed. Infant has had appropriate bottle feedings in the last 24 hours meets the outcomes for weight, output and jaundice at this time. Mother states she is confident to continue feeding her infant at home or when to call for assistance and denies any additional assistance or education at this time. Mother states she has not been latching or pumping her breast consistently. Breast pump provided prior to RN's shift due to ineffective feedings. Instructions given on cleaning, care, usage, that there should be no pain, pumping schedule for milk production, collection, and storage of human milk. Patient was educated for correct placement, flange size, to pump for comfort and nipple stretching/stimulation for adequate milk production every 3 hours (8 times in 24 hours). Mother voiced understanding of the education shared along with mom and baby guide for additional resource information. Reinforced understanding of milk production as it relates to PCOS that patient states she has and the QBL >1000, transition of milk, signs of adequate intake, prevention/relief of engorgement, responsive after visualizing feeding cues, the different methods of stimulating to feed 2-3 hours after the start of the last feeding, community resources, medication information reviewed per [employer] and when to call a provider using the resource of the mom and baby guide/[facility] website. Mother voiced understanding of the education shared. Reported to the primary RN.
[2021-12-24 20:01] VITALS: BP 127/66; PULSE 85; RESP 16; TEMP 36.6; O2SAT 100
[2021-12-25] MEDS: SERTRALINE HCL 50 MG TABLET PO (02:42)
[2021-12-25] MEDS: HYDROcodone/acetaminophen (*CRX) 5-325 MG TABLET 1 TAB PO ×2 (02:42→08:29)
--- NOTE | 2021-12-25 04:33 | PCRCNOTE ---
Window of time for administration has passed. See next scheduled administration.
--- NOTE | 2021-12-25 06:55 | PM.OBPNVD ---
OB - PN: Subj Subjective Date/time seen: 12/25/21 06:55 Patient comments: no complaints and pain well controlled baby status: doing well and bottle feeding well [place] feeding status: exclusively bottle feeding Narrative: would like DC home today. OB - PN: Obj Data Labs CBC & Chem 7: 12/24/21 05:07 OB - PN A/P Plan day: 2 Comments: DC home today DC instructions given FU 1 week incision check Time Spent With Patient Time: Total time spent is greater than 50% in coordination of care (as documented) at patient's floor/unit and/or counseling patient: Exam Narrative: NAD abdomen soft, appropriately tender, incision CDI Extremities nontender with 1+ edema
--- NOTE | 2021-12-25 07:02 | PM.OBDSVD ---
DS: Admitting Diagnosis Discharge Date 12/25/21 Admitting Diagnosis term , GDM DS: Discharge Diagnosis Discharge Diagnosis (1) delivery delivered: Code(s): O82 - Encounter for delivery without indication Status: Acute OB - DS: Summary Hospital Course Hospital Course: Shannan was admitted for induction of labor with GDM. She had failure to progress at 7cm for several hours and underwent a primary section, which was uncomplicated. She had a normal course and desired DC home on POD 2. OB Procedures : NST and Ultrasound OB Procedures Intrapartum: OB Procedures: : None Peripartum Data Delivery Method: Section Procedures: Procedures Operation Date: 12/23/21 09:30 Actual Procedure Side Surgeon p Section Bilateral Diane Hendrix MD complications: none Status at Discharge Functional status at discharge: independent ambulation Time Spent with Patient Time attestation: Total time spent providing and/or coordinating discharge services: Exam Narrative: NAD abdomen soft, appropriately tender, incision CDI DS: Data Data Completed and Pending Pending studies at discharge: Pending at discharge 12/23/21 10:10 Surgical [PTH] Routine Discharge Plan Discharge Attending physician on discharge: Diane Hendrix Discharging Clinician: Diane Hendrix Anticipated Discharge Date/Time: 12/25/21 12:00 Patient Disposition: Home, Self-Care Activity: may drive after 2 weeks and pelvic rest Diet: regular Patient Instructions: Antibiotic Form Stand Alone Forms: General Discharge Information Follow-up/Referrals: Diane Hendrix MD [Physician] - 1 Week Discharge Medications: New hydrocodone-acetaminophen 5-325 mg Tablet 1 tablet PO Q4-5H PRN (Reason: Moderate Pain (4-6)) Qty: 30 0RF docusate sodium 100 mg Capsule 100 mg PO BID PRN (Reason: constipation) Qty: 60 0RF ibuprofen 600 mg Tablet 600 mg PO Q6H PRN (Reason: Cramping) Qty: 60 0RF Continued sertraline 50 mg tablet 50 mg PO DAILY omega-3 fatty acids Capsule 1 cap PO DAILY PNV cmb#95-ferrous fumarate-FA [] 28 mg iron- 800 mcg Tablet 1 tablet PO DAILY montelukast 10 mg tablet 1 tablet PO DAILY budesonide-formoterol [Symbicort] 160-4.5 mcg/actuation HFA aerosol inhaler 1 inh INHALATION PRN PRN (Reason: asthma) Discontinued aspirin 81 mg Tablet 81 mg PO DAILY Date of admission: 12/21/21 15:50 Primary Care Provider: PHYSICIAN NOT ON STAFF,NONSTAFF Admitting Provider: Diane Hendrix Attending physician on admission: Diane Hendrix Condition: Stable
[2021-12-25 08:15] VITALS: BP 141/72; PULSE 68; RESP 18; TEMP 36.9; O2SAT 100
[2021-12-25] MEDS: MONTELUKAST SODIUM 10 MG TABLET PO (08:28)
[2021-12-25] MEDS: MULTIVIT/MIN/PREN/FOL AC/IRON TABLET 1 TAB PO (08:28)
[2021-12-25] MEDS: IBUPROFEN 600 MG TABLET PO (08:28)
[2021-12-25] MEDS: POLYSACCHARIDE IRON COMPLEX 150 MG CAPSULE PO (08:28)
[2021-12-25] MEDS: DOCUSATE SODIUM 100 MG CAPSULE PO (08:28)
[2021-12-28 10:48] VITALS: BP 125/73; PULSE 80; RESP 20; TEMP 37.3; O2SAT 100
== END 2021-12-25 11:25 | disposition home or self-care (01) | DRG 540 ==
LOC: ANHLDR 15:53 → ANHOB2 12-23 13:46
PROVIDERS: Admitting Provider Obstetrics & Gynecology; Visit Provider Obstetrics & Gynecology
PROC: 10D00Z1 Extraction of Products of Conception, Low, Open Approach (ICD-10-PCS; CPT 59514; principal; 2021-12-23 09:30)
DX: O24.420 Gestational diabetes mellitus in childbirth, diet controlled (principal); Z37.0 Single live birth; Z3A.39 39 weeks gestation of pregnancy; O69.81X0 Labor and delivery complicated by cord around neck, without compression, not applicable or unspecified; O63.1 Prolonged second stage (of labor); O99.344 Other mental disorders complicating childbirth; F32.A Depression, unspecified; F41.9 Anxiety disorder, unspecified; O99.214 Obesity complicating childbirth; E66.9 Obesity, unspecified; O98.32 Other infections with a predominantly sexual mode of transmission complicating childbirth; A60.09 Herpesviral infection of other urogenital tract; Z86.16 Personal history of COVID-19; O99.52 Diseases of the respiratory system complicating childbirth; J45.909 Unspecified asthma, uncomplicated
CPT/HCPCS: 36415; 80307; 82948; 85025; 86592; 86850; 86900; 86901; 88307; 94640; A9270; J0131; J0290; J0690; J1885; J2210; J2274; J2405; J2590; J2795; J3010; J3480; J7120

== ENCOUNTER 2022-04-21 16:10 | Emergency (ER) | payer OTHER, SELFPAY ==
[2022-04-21 16:38] VITALS: BP 131/88; PULSE 65; RESP 16; TEMP 36.7; O2SAT 100
[2022-04-21 16:59] LABS: Basophils Absolute Auto 0.1 K/mm3 (0.0-0.1); Basophils Percent Auto 0.8 % (0.2-1.2); Eosinophils Absolute Auto 0.1 K/mm3 (0-0.3); Eosinophils Percent Auto 1.8 % (0-4.4); Hemoglobin 13.2 g/dL (12.0-15.0); Immature Granulocyte Absolute 0.02 K/mm3 (0.00-0.031); Immature Granulocyte Percent A 0.3 % (0-0.5); Lymphocytes Absolute Auto 2.12 K/mm3 (0.9-3.2); Lymphocytes Percent Auto 27.8 % (18.3-44.2); Mean Corpuscular HGB Conc 32.2 g/dl (32-36); Mean Corpuscular Hemoglobin 26.9 pg (26-34); Mean Corpuscular Volume 83.7 fl (80-100); Mean Platelet Volume 9.3 fl (7.4-10.4); Monocytes Absolute Auto 0.6 K/mm3 (0.1-0.6); Monocytes Percent Auto 7.2 % (2.6-8.5); Neutrophils Absolute Auto 4.7 K/mm3 (1.3-6.7); Neutrophils Percent Auto 62.1 % (45.5-73.1); Platelet Count Result 424 k/mm3 (150-375); Red Cell Distribution Width 15.3 % (11.5-14.5); White Blood Count 7.6 K/mm3 (4.5-10.0)
[2022-04-21 17:14] LABS: Alanine Aminotransferase 27 U/L (6-35); Albumin Level 4.8 g/dL (3.5-5.1); Alkaline Phosphatase 86 U/L (38-126); Anion Gap 14 mmol/L (8-16); Aspartate Amino Transferase 24 U/L (14-36); Blood Urea Nitrogen 13 mg/dL (7-17); Calcium 9.7 mg/dL (8.4-10.2); Carbon Dioxide 22 mmol/L (22-30); Chloride 105 mmol/L (98-107); Estimated CRCL calculation 137 ml/min; Estimated Glomerular Filt Rate > 60; Glucose 109 mg/dL (65-110); Potassium 3.8 mmol/L (3.4-5.0); Sodium 141 mmol/L (137-145)
--- NOTE | 2022-04-21 17:58 | PC.NURSE ---
patient left without being seen. states wait is too long
== END 2022-04-21 17:58 | disposition left against medical advice (07) ==
PROVIDERS: Emergency Provider Emergency Medicine
DX: R56.9 Unspecified convulsions (principal)
CPT/HCPCS: 36415; 80053; 85025; 99199

== ENCOUNTER 2024-04-23 12:20 | Emergency (ER) | payer OTHER, SELFPAY ==
--- NOTE | 2024-04-23 12:26 | ED.FEMALEGU ---
HPI - Female Genitourinary General Chief complaint: Urogenital-Female Stated complaint: Urinary Problem Time Seen by Provider: 04/23/24 12:26 Source: patient Mode of arrival: ambulatory Limitations: no limitations History of Present Illness HPI Narrative: Patient is a 29-year-old female who presents with 5 days of burning with urination, low back pain and urethral irritation. Denies any frequency, blood in urine, fever, chills, nausea, vomiting, diarrhea. Patient also requesting STD testing. Denies any new partners or abnormal discharge. History of kidney stones and BV. MD elicited complaint: dysuria Related Data Home Medications Medication Instructions Recorded Confirmed sertraline 50 mg tablet 50 mg PO DAILY 09/11/21 12/21/21 budesonide-formoterol HFA 160 1 inh inhalation PRN PRN asthma 12/16/21 12/21/21 mcg-4.5 mcg/actuation aerosol inhaler (Symbicort) aripiprazole 5 mg tablet mg 04/23/24 Allergies Allergy/AdvReac Type Severity Reaction Status Date / Time cat dander Allergy Hives Verified 12/23/21 09:08 Sulfa (Sulfonamide Allergy Hives Verified 12/23/21 09:08 Antibiotics) Review of Systems Review of Systems: All systems reviewed & are unremarkable except as noted in HPI and below Constitutional: Constitutional: Denies chills, Denies fever(s), Denies headache(s), Denies malaise and Denies weakness Eyes: Eyes: Denies change in vision, Denies eye discharge and Denies irritation ENT: Denies otalgia, Denies headache(s), Denies nasal congestion, Denies nasal discharge, Denies sinus pain and Denies sore throat Cardiovascular: Cardiovascular: Denies chest pain, Denies edema, Denies palpitations and Denies dyspnea Respiratory: Respiratory: Denies cough and Denies dyspnea Gastrointestinal: Gastrointestinal: Denies abdominal pain, Denies diarrhea, Denies nausea and Denies vomiting Genitourinary: Genitourinary: Denies hematuria, Reports nocturia, Reports dysuria, Reports flank pain and Denies urinary urgency Musculoskeletal: Musculoskeletal: Denies back pain and Denies numbness Integumentary/Breasts: Skin/Breast: Denies pruritus and Denies rash Neurologic: Denies headache(s), Denies numbness and Denies weakness Psychiatric: Psychiatric: Reports no additional psychiatric complaints Endocrine: Endocrine: Denies palpitations PMFSH Past Medical History Medical History (Updated 04/23/24 @ 13:32 by Carrol Colvin APRN) Anxiety Family History Family History Mother Asthma Chronic obstructive pulmonary disease Bipolar 1 disorder Depression Father Bipolar 1 disorder Hypertension Grandparent Depression Heart disease Skin cancer Social History Social History Smoking status: Former smoker Tobacco type: cigars Second hand tobacco smoke exposure: No Substance use: current Last use: last time in october 2021 Gender identity (if verbalized by the patient): Female Spiritual care concerns: No Comments At time of signature, agree with nursing past medical, surgical, social and family history. There is no relevant family history pertinent to the presenting complaint. Exam Const: General: cooperative, healthy appearing, comfortable, no acute distress and well nourished Nutritional Appearance: well nourished Orientation/consciousness: patient oriented x3 HENMT: Head: normocephalic and atraumatic Ears: external ears normal Face/Nose/Sinus: Normal external nose present, Normal nares present and normal facial exam Face and sinus: normal facial exam Eyes: General: appearance normal, both eyes and all related structures Pupils: Equal, round and reactive pupils present EOM: EOMs intact bilaterally Neck: Neck: normal visual inspection, full ROM and supple Chest: Chest palpation & inspection: normal inspection of the chest Resp: Effort & Inspection: normal respirato
[2024-04-23 12:28] VITALS: BP 127/68; PULSE 92; RESP 20; TEMP 36.7; O2SAT 99
[2024-04-23 13:03] LABS: EDUAAPPEAR Clear; EDUABILI Negative (Negative); EDUABLOOD Negative (Negative); EDUACOLOR1 Yellow; EDUAGLUCOSE Negative (Negative); EDUAKETONE Negative (Negative); EDUALEUKO Negative (Negative); EDUANITRATE Negative (Negative); EDUAPROTEIN Negative (Negative); EDUAUROBILI 0.2
[2024-04-23 20:08] LABS: Trichomonas Vag PCR NOT DETECTED (NOT DETECTE)
[2024-04-23 20:31] LABS: Chlamydia trachomatis NOT DETECTED (NOT DETECTE); Neisseria gonorrhoeae PCR NOT DETECTED (NOT DETECTE)
== END 2024-04-23 13:36 | disposition home or self-care (01) ==
PROVIDERS: Emergency Provider Nurse Practitioner Family; PCP Nurse Practitioner Family
DX: R35.0 Frequency of micturition (principal); Z11.3 Encounter for screening for infections with a predominantly sexual mode of transmission; Z87.891 Personal history of nicotine dependence; F41.9 Anxiety disorder, unspecified
CPT/HCPCS: 81003; 87086; 87491; 87591; 87661; 99213; G0463

== ENCOUNTER 2025-03-28 12:09 | Emergency (ER) | payer OTHER, SELFPAY ==
[2025-03-28 12:18] VITALS: BP 122/80; PULSE 79; RESP 18; TEMP 37.1; O2SAT 100
--- NOTE | 2025-03-28 13:05 | ED_ITS ---
HPI - Ear Problem General Chief complaint: Ear Stated complaint: Right ear Time Seen by Provider: 03/28/25 13:00 Source: patient, RN notes reviewed and old records reviewed Mode of arrival: ambulatory Limitations: no limitations History of Present Illness HPI Narrative: 30 year old female who presents to [facility] care with complaints of some bilateral ear pressure and some discomfort to right ear for the past 4-5 days. Patient reports that she had cold symptoms last week and does have history of asthma and has noted that she has had some wheezing. Patient has Symbicort for her asthma but does not have Albuterol rescue inhaler. Patient reports that she has had past ear infections and she used a cell phone camera and thought she seen something white in her right ear. Patient reports that she has had ear tube s 2-3 times in the past. Patient reports no known fevers, chills or sweats, denies anyacute dyspnea. MD Complaint: ear pain Location: right ear Duration: intermittent Severity: moderate Discharge from ear: Reports no Treatment prior to arrival: none Related Data Home Medications ?Medication ?Instructions ?Recorded ?Confirmed ?Last Taken ?Type budesonide-formoterol HFA 160 1 inh inhalation PRN PRN asthma 12/16/21 12/21/21 12/21/21 08:00 History mcg-4.5 mcg/actuation aerosol inhaler (Symbicort) aripiprazole 5 mg tablet mg 04/23/24 Unknown History Allergies Allergy/AdvReac Type Severity Reaction Status Date / Time cat dander Allergy Hives Verified 03/28/25 12:11 Sulfa (Sulfonamide Allergy Hives Verified 03/28/25 12:11 Antibiotics) Review of Systems Review of Systems: CONSTITUTIONAL: Denies malaise, chills, sweats, or fever. EYES: Denies visual changes, redness, or discharge. ENT: Reports rhinorrhea, congestion, sinus pain,right otalgia and no sore throat. CARDIOVASCULAR: Denies chest pain, palpitations, or edema. RESPIRATORY: Reports cough with some wheezing.? Denies dyspnea. GASTROINTESTINAL: Denies abdominal pain, nausea, vomiting, diarrhea SKIN: Denies rash or itching. MUSCULOSKELETAL: Denies myalgia. NEUROLOGIC: Denies headache. All systems reviewed & are unremarkable except as noted in HPI and below PMFSH Past Medical History Medical History History of psychiatric treatment Depression Bipolar 1 disorder IBS (irritable bowel syndrome) delivery delivered Asthma Anxiety Surgical History Surgical History History of placement of ear tubes 2-3 times as child Hx of tonsillectomy History of cholecystectomy Family History Family History Mother Asthma Chronic obstructive pulmonary disease Bipolar 1 disorder Depression Father Bipolar 1 disorder Hypertension Grandparent Depression Heart disease Skin cancer Social History Social History Smoking status: Former smoker Tobacco type: cigars Second hand tobacco smoke exposure: No Alcohol intake: unknown Substance use: former Substance use type: does not use Last use: last time in october 2021 Gender identity (if verbalized by the patient): Female Spiritual care concerns: No Comments At time of signature, agree with nursing past medical, surgical, social and family history. There is no relevant family history pertinent to the presenting complaint Exam Narrative: GENERAL: Well-appearing, well-nourished, and in no acute distress. HEAD: Normocephalic EYES: PERRLA, conjunctivae clear ENT: Nares clear, turbinates edematous and erythematous, clear discharge. Mucous membranes moist.right TM red with white scarring noted no foreign body noted Left TM pearly lewis with dull light reflex with some white scarring noted; no tragal tenderness. Oropharynx erythematous without lesions. Tonsils not present and throat without exudate, no drooling, no hoarseness, no trismus, uvula midline. NECK: Supple. No lymphadenopathy CHEST: Scattered wheezing noted on auscultation, breath sounds equal.positive f or wheezing,no rhonchi, rales, or stridor. No respiratory distress, speaks in full sentences.no acute cough noted no tachypnea, SAO2 100% on room air HEART: Regular rate and rhythm. No murmur heard. SKIN: Warm, dry, no rash. NEURO: Alert and oriented x3. PSYCH: Normal mood and affect Course Course Emergency Course: Patient is aware of diagnosis, understands and agrees to treatment plan.? Anticipatory guidance given.? Patient agrees to follow-up as directed and is aware of reasons to seek care at the emergency department. Portions of this record may have been created with voice recognition software Level of Care: Express Care Visit Vital Signs Vital signs: Vital Signs Temperature 37.1 C 03/28/25 12:18 Pulse Rate 79 03/28/25 12:18 Respiratory Rate 18 03/28/25 12:18 Blood Pressure 122/80 03/28/25 12:18 Pulse Oximetry 100 03/28/25 12:18 Oxygen Delivery Room Air 03/28/25 12:18 Temperature 37.1 C 03/28/25 12:18 Pulse Rate 79 03/28/25 12:18 Respiratory Rate 18 03/28/25 12:18 Blood Pressure 122/80 03/28/25 12:18 Pulse Oximetry 100 03/28/25 12:18 Oxygen Delivery Room Air 03/28/25 12:18 Reviewed Medical Decision Making Differential Diagnosis Differential Diagnosis: URI, exacerbation of asthma, bronchitis, otitis media, otalgia Medical Records Medical records reviewed: Yes I reviewed the external patient's medical records. Vital Signs Vital Signs: Vital Signs Temperature 37.1 C 03/28/25 12:18 Pulse Rate 79 03/28/25 12:18 Respiratory Rate 18 03/28/25 12:18 Blood Pressure 122/80 03/28/25 12:18 Pulse Oximetry 100 03/28/25 12:18 Oxygen Delivery Room Air 03/28/25 12:18 Temperature 37.1 C 03/28/25 12:18 Pulse Rate 79 03/28/25 12:18 Respiratory Rate 18 03/28/25 12:18 Blood Pressure 122/80 03/28/25 12:18 Pulse Oximetry 100 03/28/25 12:18 Oxygen Delivery Room Air 03/28/25 12:18 reviewed Critical Care Time Critical Care Time Critical Care Time: No Discharge Plan Discharge Clinical Impression: Otitis media Qualifiers: Otitis media type: serous Chronicity: acute Laterality: right Recurrence: not specified as recurrent Qualified Code(s): H65.01 - Acute serous otitis media, right ear Exacerbation of asthma Qualifiers: Asthma severity: moderate Asthma persistence: unspecified Qualified Code(s): J45.901 - Unspecified asthma with (acute) exacerbation Patient Disposition: Home Condition: Stable Instructions: Antibiotic Form, Ear Infection (GEN), Bronchospasm (ED) Additional Instructions: Increase fluids especially juices and water [id number]-[id number] cough and cold medicine of your choice for your symptoms Tylenol or ibuprofen for any fever pain package instruction Continue your inhaler/nebulizer as directed Steroids as directed--take with food heat to the face 20-30 minutes 4-6 times a day for pain Salt water gargles, throat lozenges or throat sprays as desired Antibiotic as directed--finished the medication Patient Language: Singaporean Prescriptions: New albuterol sulfate [Ventolin HFA] 90 mcg/actuation HFA aerosol inhaler 2 puff inhalation QID PRN (Reason: shortness of breath or wheezing) Qty: 6.7 0RF Rx Instructions: as needed for exacerbation of symptoms prednisone 20 mg tablet 40 mg PO DAILY Qty: 10 0RF amoxicillin-pot clavulanate 500-125 mg tablet 1 tablet PO Q12H Qty: 20 0RF Rx Instructions: take with food recommend taking with probiotic or eating yogurt while on this med No Action aripiprazole 5 mg tablet budesonide-formoterol [Symbicort] 160-4.5 mcg/actuation HFA aerosol inhaler 1 inh INHALATION PRN PRN (Reason: asthma) Follow-up/Referrals: PHYSICIAN NOT ON STAFF,NONSTAFF [Primary Care Provider] Time of Disposition: 13:15 Quality Phoenix Coma Scale Eyes: Open Verbal: Oriented and Alert Motor: Follows Commands [place] Coma Total Score: 15
--- OUTSIDE RECORDS SUMMARY | 2025-03-28 14:39 | XMS_ITS | Encounter Summary ---
Author Organization [facility] Address [address] [place] [address] Phone Care Team Providers Care Oracle Sql Developer Name Role Phone Yeimi Nuñez APRGERMAIN Rascon Primary Care Provider [phone] Encounter Details Date Type Department Care Team (Late st Contact Info) Description 03/14/2023 Behavioral Health Patient Survey [facility] [address] [place] [address] Ana Leary, HEALTH PROGRAM MANAGER [address] [place] [address] Social History Tobacco Use Types Packs/Day Years Used Date Smoking Tobacco: Former Cigarettes Q uit: 12/05/2016 Cigars Smokeless Tobacco: Never Comments:4/day Alcohol Use Standard Drinks/Week Comments Not Currently 0 (1 standard drink = 0.6 oz pur e alcohol) occasional PHQ-2 Answer Date Recorded Total Score - Questions 1-9 4 02/02 Education Answer Date Recorded What is the highest level of school you have completed or the highest degree you have received? GED or equivalent 06/2021 Sexually Active Control Partners Comments Yes Male Comments Unknown Sex and Gender Information Value Date Recorded Sex Assigned at Not on file Legal Sex Female 2:17 PM CDT Gender Identity Not on file Sexual Orientation Not on file COVID-19 Exposure Response Date Recorded In the last 10 days, have yo u been in contact with someone who was confirmed or suspected to have Coronavirus/COVID-19? No / Unsure 03/14/2023 1:22 PM CDT documented as of this encounter Plan of Treatment Not on file documented as of this encounter Goals Goal Patient Goal Type Associated Problems Recent Progress Patient-Stated? Author Would like to stop picking skin and work on how I feel in social situations Behavioral Health Improving( 4:46 PM CDT) Yes Ana Leary LCSW Note: Would like to stop picking skin and work on how I feel in social situations to have reduction of anxiety and depression symptoms. Goal Reviewed with: patient today Readiness to change: Ready to change Department associated with goal: [facility] Steps to achieve goal: will attend group/individual sessions at least once monthly, utilizing individual and/or group sessions to express thoughts and feelings. to identify, verbalize and process at least three contributing factors/triggers to anxiety and depression. to identify and verbalize at least three actions/skills to prevent and/or cope with anxiety and depression. to put into action, at least one time weekly, for one month, an action/skill to prevent and or cope with anxiety and depression. Increase coping skills Behavioral Health Improving( 4:46 PM CDT) No Ana Leary LCSW Note: Coping skills. Goal Reviewed with: patient Readiness to change: Ready to change Department associated with goal: [facility] Steps to achieve goal: will identify at least two coping skills/activities/habits that have helped to manage anxiety in the past. will identify at least three new coping skills/activities/habits that may help to prevent and/or cope with anxiety. 3. will identify a plan to implement coping skills and follow this plan for two weeks and evaluate the impact on anxiety 4. Will attend individual and/or group therapy at least 1x/month documented as of this encounter Visit Diagnoses Not on filedocumented in this encounter Additional Health Concerns Infection Onset Date Last Indicated Resolved Time COVID - 19 06/24/2024 06/24/2024 06/24/2024 7:50 PM TENANT RELATIONS COORDINATOR Assessment Noted Time PHQ-9 Depression Total Score: 4 02/27/20 21 10:00 AM CDT documented as of this encounter Care Teams Oracle Sql Developer Relationship Specialty Start Date End Date Yeimi Nuñez APRN, GERMAIN PCP - General Family Medicine 05/19/22 documented as of this encounter
--- OUTSIDE RECORDS SUMMARY | 2025-03-28 14:40 | XMS_ITS | Encounter Summary ---
Author Organization [facility] Address [address] [place] [address] Care Team Providers Care Certified Prosthetist Name Role Phone Juan Garcia MD Unavailable + [phone] Quin Nunez MD Primary Care Provider [phone] Encounter Details Date Type Department Care Team (Late st Contact Info) Description 02/13/2025 Results Follow-Up [facility] at [address] [place] [address] Quin Nunez MD [address] [place] [address] [address] [place] [address] Vaginitis panel Vaginal, Vaginal High Risk HPV DNA Detection with Genotyping (Molecular component), N. gonorrhoeae/C. trachomatis Amplification Vaginal Social History Tobacco Use Types Packs/Day Years Used Date Smoking Tobacco: Former Cigarettes Q uit: 03/2021 Smokeless Tobacco: Never Alcohol Use Standard Drinks/Week Comments Not Currently 0 (1 standard drink = 0.6 oz pur e alcohol) 1 5th of vodka daily PHQ-2 Answer Date Recorded PHQ-2 Total Score (If total score is 3 or more points, staff should administer the PHQ-9) 6 02/12/2025 PHQ-9 Answer Date Recorded PHQ-9 Total Score 19 02/12/2025 AUDIT-C Answer Date Recorded Q1: How often do you have a drink containing alcohol? Never 02/12/2025 Q2: How many drinks containi ng alcohol do you have on a typical day when you are drinking? Patient does not drink Q3: How often do you have si x or more drinks on one occasion? Never 02/12/2025 Comments No Sex and Gender Information Value Date Recorded Sex Assigned at Not on file Legal Sex Female 4:06 PM CARROT HARVESTER Gender Identity Female 10/20/2021 10:26 PM CDT Sexual Orientation Straight 10/20/2021 10 :26 PM CDT documented as of this encounter Plan of Treatment Not on file documented as of this encounter Visit Diagnoses Not on filedocumented in this encounter Care Teams Certified Prosthetist Relationship Specialty Start Date End Date Quin Nunez MD 2 [facility] [address] [address] PCP - General Family Medicine 01/23/25 Juan Garcia MD [address] [place] [address] Consulting Physician Family Medicine 11/14/20 documented as of this encounter
--- OUTSIDE RECORDS SUMMARY | 2025-03-28 14:40 | XMS_ITS | Clinical Summary ---
Author Organization [facility] Address [address] [place] [address] Care Team Providers Care Senior Commissions Analyst Name Role Phone Leland James MD Primary Care Provider Source Comments [facility],non-owned Affiliates and Associated Physician Practices is amultiple site organization consisting of ambulatory clinics and hospital sitesin [place], [place], [place] and [place]. This disclosure is being madepursuant to the Care Everywhere program and may not contain all information available regarding this patient. Last updated 18.[facility] Allergies Active Allergy Reactions Criticality Noted Date Comments Sulfa Drugs 07/20/2013 hives Medications * Be aware that medications may not be up to date on this document. Alwaysverify current medications with the patient. naproxen (NAPROSYN) 500 MG tablet Take 500 mg by mouth 2 times daily. Active montelukast (SINGULAIR) 10 MG tablet Take 10 mg by mouth at bedtime. Active albuterol HFA (PROVENTIL;CHRISTIN TOLIN;PROAIR) 108 (90 BASE) MCG/ACT inhaler Inhale 2 Puffs by mouth every 6 hours as needed. Active gabapentin (NEURONTIN) 300 MG capsule Take 300 mg by mouth 3 times daily. Active FLUoxetine (PROZAC) 40 MG capsule Take 40 mg by mouth once daily. Active cyclobenzaprin e (Flexeril) 10 MG tablet Take 1 (one) tablet by mouth 3 times daily as needed for Muscle Spasms 15 tablet 5 Active lidocaine (Lidoderm) 5 % patch Apply 2 (two) patches to skin once daily Apply patch to most painful area and remove after 12 hours. May reapply a new patch 12 hours later. 30 patch 5 Active ibuprofen (Motrin) 600 MG tablet Take 1 (one) tablet by mouth every 6 hours as needed for Pain 30 tablet 5 Active acetaminophen (Tylenol) 500 MG tablet Take 2 (two) tablets by mouth every 6 hours as needed for Fever or Pain Maximum allowable Acetaminophen amount = 4 Grams (4000 mg) / 24 hours. 30 tablet 5 Active Social History Tobacco Use Types Packs/Day Years Used Date Smoking Tobacco: Never Smokeless Tobacco: Never Tobacco Cessation:Counseling Given: Not Answered Alcohol Use Standard Drinks/Week Comments Not Currently 0 (1 standard drink = 0.6 oz pur e alcohol) Comments Unknown Sex and Gender Information Value Date Recorded Sex Assigned at Not on file Legal Sex Female 5:38 AM MEDICAL RECORDS ASSISTANT Gender Identity Not on file Sexual Orientation Not on file Last Filed Vital Signs Vital Sign Reading Time Taken Comments Blood Pressure 130/81 08/27/2024 1:44 PM MEDICAL RECORDS ASSISTANT Pulse 95 08/27/2024 2:48 PM MEDICAL RECORDS ASSISTANT Temperature 36.8 C (98.3 F) 08/27/2024 2:48 PM MEDICAL RECORDS ASSISTANT Respiratory Rate 16 08/27/2024 2:48 PM MEDICAL RECORDS ASSISTANT Oxygen Saturation 96% 08/27/2024 1:45 PM MEDICAL RECORDS ASSISTANT Inhaled Oxygen Concentration - - Weight - - Height - - Body Mass Index - - Plan of Treatment Health Maintenance Due Date Last Done Comments HIV SCREENING 01/21/2012 HEPATITIS C SCREENING 01/16/2015 DTAP/TDAP/TD VACCINES (1 - Tdap) 01/21/2016 HEPATITIS B VACCINE (1 of 3 - 19+ 3-dose series) 01/21/2016 HPV VACCINE (1 - 3-dose SCDM series) 01/21/2024 DEPRESSION SCREENING 07/04/2024 COVID-19 VACCINE ( - 2023-2 5 season) 2025 INFLUENZA VACCINE (#1) 2025 , 07/27/2013, 06/09/2006 PAP SMEAR 06/11/2025 06/11/2022 ZOSTER VACCINE (1 of 2) 2047 HIB VACCINE Aged Out No longer eligi ble based on patient's age to complete this topic MENINGOCOCCAL (Group B) VACCINE SHARED DECISION-MAKING Aged Out No longer eligible based on patient's age to complete this topic MENINGOCOCCAL GROUPS A/C/Y/W VACCINE Aged Out No longer eligible b ased on patient's age to complete this topic PNEUMOCOCCAL VACCINE Aged Out No long er eligible based on patient's age to complete this topic Insurance [facility] Care Teams Senior Commissions Analyst Relationship Specialty Start Date End Date Leland James MD PCP - General 04/30/19
--- OUTSIDE RECORDS SUMMARY | 2025-03-28 14:40 | XMS_ITS | Encounter Summary ---
Author Organization [facility] Healthcare Address [address] [place] [address] Care Team Providers Care Food Processor Name Role Phone Juan Garcia MD Unavailable + [phone] Quin Nunez MD Primary Care Provider [phone] Reason for Visit * Reason Onset Date Comments Referral Request 03/19/2025 Encounter Details Date Type Department Care Team (Late st Contact Info) Description 03/19/2025 Telephone [facility] at [address] [place] [address] Quin Nunez MD [address] [place] [address] [address] [place] [address] Referral Request Social History Tobacco Use Types Packs/Day Years [...] on file Legal Sex Female 4:06 PM CAP SEWER Gender Identity Female 10/20/2021 10:26 PM CDT Sexual Orientation Straight 10/20/2021 10 :26 PM CDT documented as of this encounter Miscellaneous Notes * Telephone Encounter - Nery Romero - 03/28/2025 9:56 AM CDT Waiting on order to be signed to fax * Telephone Encounter - Judith Mixon - 03/27/2025 12:15 PM CDT Call Back Caller???s Concern: Patient calling because [facility] has not received the referral from Dr. Quin Nunez. Patient needs referral from PCP in order to get scheduled. They have immediate availability to get her scheduled. Patient has relayed that she has spoke with Dr. Quin Nunez and stated she does not want to continueto take Abilify. She found no success with the medication. Patient is ready to seek specialist. Please notify patent when referral has been sent to [facility]. Patient stressed urgency. She would like to get in to [facility] to talk and be accessed. Does message need to be routed? Yes-Action Needed * Telephone Encounter - Nery Romero - 03/22/2025 3:50 PM CDT Noted, pt will come in for follow up and we will go from there with the med that was prescribed * Telephone Encounter - Sangeeta Ha - 03/19/2025 10:58 AM CDT Referral Provider Name: [facility] Specialty: Psychiatry Address: [address] [place] [address] Dr Gene Russo, [address] [place] [address], Zip: [facility] Diagnosis Code/Symptom/Reason Patient is being seen: Bipolar treatment Date of Appointment: na NPI#: na Tax ID#: na Is insurance in chart up to date? yes Additional Comments: Patient needs a Physicians referral to see a Psychiatrist. Does message need to be routed? Yes-Action Needed documented in this encounter Plan of Treatment Not on file documented as of this encounter Visit Diagnoses Not on filedocumented in this encounter Care Teams Food Processor Relationship Specialty Start Date End Date Quin Nunez MD [address] [facility] [address] [place] [id number] PCP - General Family Medicine 01/23/25 Juan Garcia MD [address] [place] [id number] Consulting Physician Family Medicine 11/14/20 documented as of this encounter
--- OUTSIDE RECORDS SUMMARY | 2025-03-28 14:40 | XMS_ITS | Clinical Summary ---
Author Organization [facility] Address [address] [place] [address] Care Team Providers [employer] Sales Consultant Name Role Phone Juan Garcia MD Unavailable [phone]- [phone] Quin Nunez MD Primary Care Provider [phone] Allergies Active Allergy Reactions Criticality Noted Date Comments Sulfa (Sulfonamide Antibiotics) Hives Medium Sulfasalazine Hives Medium 03/04/2016 Medications albuterol (PROVENTIL,VENT SREEKANTH) 2.5 mg /3 mL (0.083 %) nebulizer solution inhale 3 milliliter by nebulization route 4 times every day 0 vial 0 08/10/19 15 Active albuterol HFA (PROVENTIL HFA,VENTOLIN HFA) 90 mcg/actuation inhaler Inhale 2 puffs every 4 (four) hours as needed for wheezing. 1 Inhaler 07/30/19 18 Active loperamide (IMODIUM) 2 mg capsuleIndicati ons:Diarrhea, unspecified type Take 1 capsule (2 mg total) by mouth 4 (four) times a day as needed for diarrhea 30 capsule 12/20/19 21 Active Additional Information Patient not taking.Reported on 02/12/2025 nebulizer accessories kitIndications: Asthma, unspecified asthma severity, unspecified whether complicated, unspecified whether persistent Use with nebulizer as directed. 1 kit 01/07/20 21 Active montelukast (SINGULAIR) 10 mg tablet 10/15/19 22 Active sertraline (ZOLOFT) 50 mg tablet 10/20/19 22 Active sertraline (ZOLOFT) 100 mg tablet 04/24/20 22 Active lamoTRIgine (LaMICtal) 25 mg tabletIndicatio ns:Seizures, generalized convulsive (HCC) Take 1 tablet (25 mg total) by mouth 2 (two) times a day for 14 days, THEN 2 tablets (50 mg total) 2 (two) times a day. 120 tablet 3 08/15/19 25 026 Active Additional Information Patient not taking.Reported on 02/12/2025 Symbicort 160-4.5 mcg/actuation inhaler Inhale 2 puffs 2 (two) times a day 1 each 3 01/24/20 25 Active valACYclovir (VALTREX) 1 gram tablet Take 1 tablet (1,000 mg total) by mouth as needed 11/22/19 25 Active metroNIDAZOLE (METROGEL) 0.75 % (37.5mg/5 gram) vaginal gelIndications: Bacterial Vaginosis Apply to vagina nightly twice weekly 70 g 2 02/13/20 25 Active ARIPiprazole (ABILIFY) 5 mg tablet Take 1 tablet (5 mg total) by mouth daily 30 tablet 1 03/19/20 25 Active ARIPiprazole (ABILIFY) 5 mg tablet Take 1 tablet (5 mg total) by mouth daily 025 Discontin ued(Reord er) Active Problems Problem Noted Date Diagnosed Date Fatigue 02/12/2025 Assessment & Plan (02/12/2025 3:40 PM CDT): Patient endorsing severe fatigue suspect due to be association with depressive episode however will rule out metabolic causes at this time Mood disorder 02/12/2025 Bacterial vaginosis 02/12/2025 Assessment & Plan (02/12/2025 3:36 PM CDT): -Chronic and recurrent, patient currently having outbreak -Previously on maintenance therapy will restart this time with loading dose of oral metronidazole 500 mg b.i.d. 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 Discussed use of abx drops x 5 days. Recommended continued use of antihistamine and instructed to use flonase. Follow up with ENT, may follow up in office if unable to be seen by ENT. Reviewed red flags. Encounter to establish care 11/05/2021 Assessment & Plan (11/09/2021 5:39 PM CDT): Preventive exam; reviewed recommended preventive screenings and vaccinations. Encourage annual flu vaccine. Wear sunscreen/protective clothing when outdoors. Closed displaced fracture of shaft of fourth metacarpal bone of right hand with routine healing 09/07/2021 Overview (09/07/2021): Added automatically from request for surgery [id number] Open displaced fracture of f ourth metacarpal bone of right hand 09/07/2021 Overview (09/10/2021): Added automatically from request for surgery [id number] Nicotine use disorder 11/20/2020 Assessment & Plan (11/09/2021 5:59 PM CDT): Patient reports she has not smoked since the beginning of her , congratulated on quitting smoking. Assessment & Plan (11/20/2020 9:29 AM CDT): Highly encouraged cessation, especially given her uncontrolled asthma. Patient voiced understanding. Social anxiety disorder 11/20/2020 Assessment & Plan (11/20/2020 9:30 AM CDT): Symptoms are not well controlled. She reports generally feeling down and stressed. She also reports her mood swinging drastically from highs to lows very often. Discussed with patient that since she has already failed many medications, she would be best managed by Psychiatry. Handout given to the patient today with a list of psychiatrists in the area. Patient voiced understanding and agreement with this plan. All questions answered today. Recurrent major depressive disorder, in partial remission 11/20/2020 Assessment & Plan (11/09/2021 5:58 PM CDT): Not currently following with psychiatry per patient. 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 Was attending therapy regularly and felt it was helpful. Denies any recent mood disturbance, denies SI/HI. Discussed benefits of continuing counseling. Assessment & Plan (11/20/2020 9:28 AM CDT): See above. PTSD (post-traumatic stress disorder) 11/20/2020 Assessment & Plan (11/20/2020 9:29 AM CDT): See above. Bipolar 2 disorder 11/20/2020 Assessment & Plan (02/12/2025 3:33 PM CDT): Your by history of bipolar per patient however no documentation and patient not on any Medication currently -Release of records requested, patient visibly depressed wounds PHQ of 19 considering restarting Abilify however will hold off on medication till records from previous provider reviewed -Denies any SI/HI at this time Assessment & Plan (11/09/2021 6:00 PM CDT): See discussion above Assessment & Plan (11/20/2020 9:28 AM CDT): See above. Hidradenitis suppurativa 11/20/2020 Assessment & Plan (11/09/2021 5:59 PM CDT): No complaints or active infection at this time. Patient is following with dermatology. Assessment & Plan (11/20/2020 9:33 AM CDT): Referral placed to Dermatology for further evaluation and management. Keep skin clean. Morbid obesity with BMI of 40.0-44.9, adult 11/02 Assessment & Plan (11/09/2021 5:39 PM CDT): Discussed healthy diet and importance of regular physical activity. Assessment & Plan (11/20/2020 9:31 AM CDT): Reviewed BMI Focus on healthy diet options Work on healthy changes Routine adult health maintenance 11/19/2020 Overview (11/20/2020): Health Maintenance: -PCV13 vaccine: N/A -PPSV23 vaccine: N/A -Tdap vaccine: due -Influenza vaccine: due -Shingles vaccine: N/A -Colonoscopy: N/A -Last WWE: due -Last Mammogram: N/A -Last DEXA: N/A -Last eye exam: N/A -Last MHA: N/A Assessment & Plan (02/12/2025 3:41 PM CDT): - Obese 30-year-old woman here for routine health examination, chronic conditions discussed below - Pap smear performed today in addition to full STI STD panel, will follow-up on results is appropriate - discussed lifestyle modifications and given anticipatory guidance Asthma 06/01/2010 Assessment & Plan (02/12/2025 3:33 PM CDT): - Chronic, stable - Continue Symbicort inhaler 2 puffs b.i.d. as well as for rescue inhaler Assessment & Plan (01/24/2025 3:59 PM CDT): - Chronic, stable - Continue Symbicort inhaler 2 puffs b.i.d., advised she can use as rescue inhaler in addition to albuterol inhaler p.r.n. Assessment & Plan (11/09/2021 6:00 PM CDT): Well controlled on current regimen. Denies any recent albuterol use or illness. Assessment & Plan (11/20/2020 9:28 AM CDT): Chronic and poorly controlled. Patient is uncertain about the correct dose for her medication. Discussed with patient that she is not using her medications appropriately. She needs to be using the Symbicort twice a day, not as a rescue inhaler. I also discussed the importance of smoking cessation. It sounds like her symptoms are highly correlated with smoking. I will refer her to pulmonology for further evaluation and management. Patient voiced agreement with this plan. All questions answered. Resolved Problems Problem Noted Date Diagnosed Date Resolved Date Moderate persistent asthma w ithout complication 05/19/2017 11/19/2020 History of placement of ear tubes 05/19/2017 11/19/2020 Former smoker 05/19/2017 11/19/2020 Bronchitis 08/10/2014 05/19/2017 Overview (10/07/2016): Bronchitis Encounters Date Type Department Care Team Description 03/28/2025 Orders Only [facility] Primary Care at [address] [phone] Quin Nunez MD Bipolar 2 disorder (HCC) (Primary Dx) 03/19/2025 Telephone [facility] Residency Clinic at [address] [phone] Quin Nunez MD Referral Request 03/19/2025 Orders Only [facility] Residency Clinic at [address] [phone] Quin Nunez MD 02/25/2025 Orders Only [facility] Residency Clinic at [address] [phone] Quin Nunez MD Pap smear abnormality of cervix/human papillomavirus (HPV) positive (Primary Dx) 02/21/2025 Telephone [facility] Residency Clinic at [address] [phone] Quin Nunez MD 02/13/2025 Telephone [facility] Residency Clinic at [address] [phone] Quin Nunez MD 02/13/2025 Orders Only [facility] Residency Clinic at [address] [phone] Quin Nunez MD 02/13/2025 Results Follow-Up [facility] Residency Clinic at [address] [phone] Quin Nunez MD Vaginitis panel Vaginal, Vaginal High Risk HPV DNA Detection with Genotyping (Molecular component), N. gonorrhoeae/C. trachomatis Amplification Vaginal 02/12/2025 11:30 AM CDT - 02/12/2025 11:59 PM CDT Hospital Encounter [address] [phone] Routine screening for STI (sexually transmitted infection); Pap smear for cervical cancer screening Discharge Disposition: Discharge to home or self care 02/12/2025 11:00 AM CDT Office Visit [facility] Residency Clinic at [address] [phone] Quin Nunez MD Routine adult health maintenance (Primary Dx); Bipolar 2 disorder (HCC); Fatigue, unspecified type; Bacterial vaginosis; Routine screening for STI (sexually transmitted infection); Pap smear for cervical cancer screening 01/23/2025 11:00 AM CDT Office Visit [facility] Residency Clinic at [address] [phone] Quin Nunez MD Mild intermittent asthma without complication (Primary Dx) 01/02/2025 12:20 PM CDT - 01/02/2025 11:59 PM CDT Hospital Encounter [address] [address] Vaginal discharge Discharge Disposition: Discharge to home or self care 01/02/2025 12:15 PM CDT Office Visit [facility] at [place] [address] [place] [phone] Miryam Holliday NP Vaginal discharge (Primary Dx) 01/02/2025 Results Follow-Up [facility] at [place] [address] [place] [phone] Miryam Holliday NP Vaginitis panel Vaginal, N. gonorrhoeae/C. trachomatis Amplification Urine from Last 3 Months Immunizations Immunization Administration Dates Next Due DTP 1997 DTP / HiB 1997,1997 DTaP 01/17/2002 Hep B, Adolescent or Pediatric 8,1997,1997,01/20 HiB 01/22/1998, 8,1997,03/25 IPV 06/01/2010, 0,01/17/2002,01/22 Influenza, Quadrivalent, Spl it, Preservative Free, Intramuscular 07/27/2013 Influenza, Trivalent, Preser vative Free, Intramuscular 08/10/2024 Influenza, Unspecified 07/04/2021(Deferr ed: Patient Refused),07/04/2020(Deferred: Patient Refused),04/03/2020(Deferred: Patient Refused),04/03/2020(Deferred: Patient Refused) Influenza, Whole 06/09/2006 MMR 06/01/2010, 0,01/17/2002,01/22 OPV 05/28/2010, 8,1997,03/25 Pneumococcal Polysaccharide PPV23 11/05/2021 Tdap 06/05/2023, 2,10/06/2021,02/11 Varicella 07/27/2013 Surgical History Surgery Date Site/Laterality Comments TONSILLECTOMY Tonsillectomy ORBITAL RIM RECONSTRUCTION 07/04/2015 - 07/03/2016 Left TYMPANOSTOMY TUBE PLACEMENT Bilateral LAPAROSCOPIC CHOLECYSTECTOMY 01/01/2021 HAND ARTHROPLASTY Right plate put in Medical History Medical History Date Comments Asthma Asthma; Comments : SAB 08/10/2014 - Mixed bipolar disorder (HCC) Mix ed bipolar affective disorder; Comments: SAB 05/22/2015 - Hx Other Medical 10/2015 Plate put under eye Kidney stones GERD (gastroesophageal reflux disease) Seizures (HCC) Two seizure 18 y ears old. 2nd one in 2019. 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 Gender Identity Female 10/20/2021 10:26 PM CDT Sexual Orientation Straight 10/20/2021 10 :26 PM CDT Obstetrics History Para Term AB IAB SAB Ectopic Multiple Livin g Live Births 1 Date Outcome GA Total Labor Labor/2nd/3rd Weight Sex Type Anes PTL Lucía A1 A5 Name Clin Last Filed Vital Signs Vital Sign Reading Time Taken Comments Blood Pressure 116/56 02/12/2025 11:01 AM CDT Pulse 78 02/12/2025 11:01 AM CDT Temperature 36.7 C (98 F) 01/02/2025 12:06 PM CDT Respiratory Rate 16 02/12/2025 11:0 1 AM CDT Oxygen Saturation 99% 02/12/2025 11: 01 AM CDT Inhaled Oxygen Concentration - - Weight 125.6 kg (276 lb 14.4 oz) 2024 11:01 AM CDT Height 177.8 cm (5' 10) 02/12/2025 11: 01 AM CDT Body Mass Index 39.73 02/12/2025 11:01 AM CDT Plan of Treatment Health Maintenance Due Date Last Done Comments Pneumococcal vaccine <65 (2 of 2 - PCV) 02/06/2026 11/05/2021 Postponed from 11/05/2022 (Patient declined, but will receive in the future) Cervical Cancer Screening 02/12/2026 02/12/2025, 06/2025 Depression Screening 02/12/2026 02/12/2025, 02/12/2025, 01/23/2025, Additional history exists Regular Well Visit/Exam 18-64 02/12/2026 02/12/2025, 02/12/2025, 11/05/2021 DTaP/Tdap/Td Vaccine (9 - Td or Tdap) 06/05/2033 06/05/2023, 10/26/2021, 10/06/2021, Additional history exists Varicella Vaccines Discontinued 07/27/2013 Hepatitis B Screening Completed 11/28/2020 , 1995, 1997, Additional history exists Hepatitis C Screening Completed 11/28/2020 Influenza Vaccine Discontinued 08/10/2024, , 06/09/2006 HPV Vaccines Discontinued Medical Devices Implanted Type Area Fur Comber Device Identifier Shelf Expiration Date Model / Serial / Lot 1.5 Plate Synthes Implanted:Qty: 1 on 09/10/2021 by Gui Chu MD at [facility] Plate Right: Ring Finger Synthes I [id number] 04.130.261 / / [id number] Description:A REQ HAS BEEN E NTERED FOR [employer] ITEM# [id number] TO BE ACTIVATED AT [facility] 09/11/21 COST EA.389.98 8mm Cortex Screw Synthes Implanted:Qty: 1 on 09/10/2021 by Gui Chu MD at [facility] Screw Right: Ring Finger Synthes I [id number] 04.214.108 / / [id number] Description:A REQ TO MAKE BJ C ITEM# [id number] ACTIVE IN [employer]S ENTERED 09/11/21 COST EA. 41.36 9mm Cortex Screw Synthes Implanted:Qty: 1 on 09/10/2021 by Gui Chu MD at [facility] Screw Right: Ring Finger Synthes I [id number] 04.210.109 / N/A / [id number] Description:A REQ TO ASSIGNE D CHARGE CODE ENTERED 09/11/2021 COST EA 137.70 EA DEVICE IND# [id number] 10mm Cortex Screw Synthes Implanted:Qty: 1 on 09/10/2021 by Gui Chu MD at [facility] Screw Right: Ring Finger Synthes I C1713 04.214.110 / / [id number] Description:A REQ TO MAKE BJ C ITEM# [id number] ACTIVE IN SCCS 09/11/2021 COST EA. 41.36 8mm Locking Screw Synthes Implanted:Qty: 2 on 09/10/2021 by Gui Chu MD at [facility] Screw Right: Ring Finger Synthes I C1713 04.130.208 / / [id number] Description:A REQ TO MAKE BJ C ITEM # [id number] ACTIVE IN [employer]S HAS BEEN ENTERED 09/11/2021 COST EA 119.34 Synthes 04.130.209 1.5mm 9mm Variable Angle Lock Self Tap Tip Stardrive Hand T4 - [id number] Implanted:Qty: 3 on 09/10/2021 by Gui Chu MD at [facility] Right: Ring Finger Synthes I 04.130.209 / / [id number] Synthes 04.130.210 1.5mm 10mm Variable Angle Lock Self Tap Tip Stardrive Hand T4 - [id number] Implanted:Qty: 1 on 09/10/2021 by Gui Chu MD at [facility] Right: Ring Finger Synthes I [id number] 04.130.210 / / [id number] Procedures Procedure Name Priority Date/Time Associated Diagnosis Comments VAGINAL HIGH RISK HPV DNA DETECTION WITH GENOTYPING Routine 02/12/2025 11:30 AM CDT Pap smear for cervical cancer screening N. GONORRHOEAE/C. TRACHOMATIS AMPLIFICATION Routine 02/12/2025 11:30 AM CDT VAGINITIS PANEL Routine 02/12/2025 11:30 AM CDT Routine screening for STI (sexually transmitted infection) PAP AND HIGH RISK HPV, REFLEX TO GENOTYPING Routine 02/12/2025 8:51 AM CDT Pap smear for cervical cancer screening N. GONORRHOEAE/C. TRACHOMATIS AMPLIFICATION Routine 01/02/2025 4:23 PM CDT Vaginal discharge VAGINITIS PANEL Routine 01/02/2025 12:20 PM CDT Vaginal discharge POCT URINALYSIS DIPSTICK Routine 01/02/2025 12:19 PM CDT Vaginal discharge HEPATITIS PANEL, ACUTE Routine 1:44 PM CDT Screening for diabetes mellitus from Last 3 Months or Most Recently Relevant to Health Maintenance Results * (ABNORMAL) Vaginal High Risk HPV DNA Detection with Genotyping (Molecular component) (02/12/2025 11:30 AM CDT) [facility] HPV HR non 16/18 vaginal Positive(A) Negative [facility] Comment: Positive for one or more of the following Other High Risk HPV types: 31, 33, 35, 39, 45, 51, 52, 56, 58, 59, 66, and 68. ADDITIONAL INFORMATION Testing was performed using the beatrice HPV assay ([employer] This report is intended for use in clinical monitoring and management of patients. It is not intended for use in medical-legal applications. This test has been modified from the train gateman's instructions. Its performance characteristics were determined by [facility] in a manner consistent with CLIA requirements. This test has not been cleared or approved by the U.S. Food and Drug Administration. Test Performed by: [place] [id number] Radio Equipment Repairer: Joel Mcwilliams Ph.D.; CLIA# [id number] HPV HR 16 vaginal Negative Negative [facility] HPV HR 18 vaginal Negative Negative [facility] Vaginal 02/12/2025 11:3 0 AM CDT 02/12/2025 8:57 PM CDT Narrative [facility] - 02/14/2025 4:22 PM CDT Clinical history and diagnosis->screening Testing type->Screening Last menstrual period (date if known)->01/13/25 us Quin Nunez MD LAB BODY FLUIDS AND STOOLS ORDERABLES Final Result Performing Organization Address City/[facility]/ZIP Co de Phone Number [address] [place] [address] [facility] * N. gonorrhoeae/C. trachomatis Amplification Vaginal (02/12/2025 11:30 AM CDT) Pathologist [facility] C. trachomatis Not Detected Not Detected N. gonorrhoeae Not Detected Not Detected [facility] Comment: Interpretive Data This assay detects Chlamydia trachomatis and Neisseria gonorrhoeae by nucleic acid amplification testing (NAAT). This assay has been cleared by the [place] Food and Drug administration. The performance characteristics of this test have been verified by the [facility]. The performance characteristics of this test have not been evaluated in individuals less than 14 years of age. Current Interpretive Data last revised 2023. Vaginal 02/12/2025 11:3 0 AM CDT 02/13/2025 9:18 AM CDT Quin Nunez MD LAB MICROBIOLOGY - GENERAL ORDERABLES Final Result Performing Organization Address City/[facility] Co de Phone Number [facility] [address] [address] [place] [address] * Vaginitis panel Vaginal (02/12/2025 11:30 AM CDT) Pathologist [facility] Bacterial Vaginosis Not Detected Not Detected Comment:A negative result do es not preclude a possible infection. Results should be considered in conjunction with clinical presentation to determine the disease status. Marilynn group Not Detected Not Detected [facility] Marilynn glabrata/ krusei Not Detected Not Detected [facility] Trichomonas DNA Not Detected Not Detected [facility] Vaginal 02/12/2025 11:3 0 AM CDT 02/12/2025 8:57 PM CDT Narrative [facility] - 02/12/2025 11:40 PM CDT The [employer] Xpert Xpress MVP test detects DNA targets from anaerobic bacteria associated with bacterial vaginosis, Marilynn species associated with vulvovaginal candidiasis, and Trichomonas vaginalis by nucleic acid amplification testing (NAAT). Results should be interpreted in conjunction with other clinical data. This test cannot be used to assess therapeutic success or failure because target nucleic acids may persist following antimicrobial therapy. This test has been cleared by the [place] Food and Drug Administration to aid in the diagnosis of vaginal infections in symptomatic women ages 14 and older. The performance characteristics of this test have been verified by the [facility]. us Quin Nunez MD LAB MICROBIOLOGY - GENERAL ORDERABLES Final Result BE [address] [place] [address] * (ABNORMAL) Pap and High Risk HPV and Genotyping (Cytology Component) (02/12/2025 8:51 AM CDT) Thin prep (Pap test) 02/12/2025 8:51 AM CDT 02/12/2025 8:51 AM CDT Narrative PATHOLOGY - 02/21/2025 3:57 PM CDT [facility] Department of Pathology [address] [place] [id number] Final Report with Addendum Note to Patients: This report may contain a detailed description of human tissue sent by a health care provider to the laboratory for pathologic evaluation. The content of this report is essential for diagnosis and may provide important critical findings. This information may be unfamiliar to patients to review without a medical professional present. It is advised that the patient review this report in the presence of a health care provider who can answer questions and explain the details. Patient Name: SHANNAN ROSALES Address: [address] [address] Gender: F : 1995 (Age: 30) Service: Location: N : [id number] [facility] #: [id number] Patient Type: SPECIMEN Taken: 02/12/2025 Received: 02/12/2025 Accessioned:: 02/13/2025 Reported: 02/21/2025 Physician(s): MD Quin Liu MD Diagnosis: SOURCE OF SPECIMEN SCREENING THIN PREP IMAGED PAP w/ HPV: STATEMENT OF ADEQUACY - Satisfactory for evaluation; endocervical/transformation zone component present GENERAL CATEGORIZATION: - Epithelial cell abnormality INTERPRETATION: - Low grade squamous intraepithelial lesion (LSIL) encompassing HPV/mild dysplasia/MELANIE I TOBI Garcia([facility])Dustin Schaefer M.D. Report Electronically Reviewed and Signed Out By Dustin Schaefer M.D. 02/21/2025 15:57:46Addenda: HPV Test Interpretation HPV HR 16 vaginal- Not Detected HPV HR 18 vaginal- Not Detected HPV HR non 16/18 vaginal-Detected Comment: The following Other High Risk HPV types were not detected: 31, 33, 35, 39, 45, 51, 52, 56, 58, 59, 66, and 68 ADDITIONAL INFORMATION Testing was performed using the beatrice HPV assay ([employer] This test has been modified from the train gateman's instructions. Its performance characteristics were determined by [facility] in a manner consistent with CLIA requirements. This test has not been cleared or approved by the U.S. Food and Drug Administration. Test Performed by: [address] [address] Radio Equipment Repairer: Liban Laurent M.D. Ph.D.; CLIA# [id number] TOBI Castellano([facility])Report Electronically Reviewed and Signed Out By TOBI Castellano([facility]) 02/15/2025 13:25:35 Specimen(s) Received: A: SCREENING THIN PREP IMAGED PAP w/ HPV Clinical History: Last Menstrual Period: 01/13/25 The Pap test is a screening test used to aid in the detection of cervical cancer and its precursors. It should not be the sole means by which malignant and premalignant lesions are diagnosed. Both false negative and false positive results may occur. It also has poor sensitivity for the detection of endometrial lesions and should not be used to evaluate suspected endometrial abnormalities. For these reasons it is most important to obtain Pap tests at regular intervals. The performance characteristics of some immunohistochemical stains, fluorescence in-situ hybridization tests and immunophenotyping by flow cytometry cited in this report (if any) were determined by the Surgical Pathology Department at [facility] as part of an ongoing production quality analyst program and in compliance with federally mandated regulations drawn from the Clinical Laboratory Improvement Act of 1988 (CLIA '88). Some of these tests rely on the use of analyte specific reagents and are subject to specific labeling requirements by the US Food and Drug Administration. Such diagnostic tests may only be performed in a facility that is certified by the Department of Health and Human Services as a high complexity laboratory under CLIA '88. The FDA has determined that such clearance or approval is not necessary. This test is used for clinical purposes. It should not be regarded as investigational or for research. Nevertheless, federal rules concerning the medical use of analyte specific reagents require that the following disclaimer be attached to the report: This test was developed and its performance characteristics determined by the Surgical Pathology Department [facility]. It has not been cleared or approved by the U. S. Food and Drug Administration. Quin Nunez MD LAB CYTOLOGY ORDERABLES Fin al Result PATHOLOGY [address] [place] [address] * N. gonorrhoeae/C. trachomatis Amplification Urine (01/02/2025 4:23 PM CDT) C. trachomatis Not Detected [facility] Comment:Testing performed by : [facility], [address] [place] [address]., [id number] N. gonorrhoeae Not Detected [facility] Comment: Interpretive Data This assay detects Chlamydia trachomatis and Neisseria gonorrhoeae by nucleic acid amplification testing (NAAT). This assay has been cleared by the [place] Food and Drug administration. The performance characteristics of this test have been verified by the [facility] Molecular Infectious Disease laboratory. The performance characteristics of this test have not been evaluated in individuals less than 14 years of age. Current Interpretive Data was last revised on 2023. Testing performed by: [facility], [address] [place] [address]., [id number] Urine (None) 01/02/2025 4:23 PM CDT 01/03/2025 2:17 PM CDT Miryam Holliday NP LAB MICROBIOLOGY - GENERAL ORD ERABLES Final Result Performing Organization Address [facility] Co de Phone Number [facility] [address] Department [place] [address] [facility] * (ABNORMAL) Vaginitis panel Vaginal (01/02/2025 12:20 PM CDT) Bacterial Vaginosis Detected(A) Not Detected Comment:The BV organism targ ets of this test can be commensal in women; results should be considered in conjunction with clinical presentation to determine the disease status. Marilynn group Not Detected Not Detected [facility] Marilynn glabrata/ krusei Not Detected Not Detected [facility] Trichomonas DNA Not Detected Not Detected [facility] Vaginal 01/02/2025 12:2 0 PM CDT 01/02/2025 5:00 PM CDT Narrative [facility] - 01/02/2025 6:40 PM CDT The CepOncoscopeid Xpert Xpress MVP test detects DNA targets from anaerobic bacteria associated with bacterial vaginosis, Marilynn species associated with vulvovaginal candidiasis, and Trichomonas vaginalis by nucleic acid amplification testing (NAAT). Results should be interpreted in conjunction with other clinical data. This test cannot be used to assess therapeutic success or failure because target nucleic acids may persist following antimicrobial therapy. This test has been cleared by the [place] Food and Drug Administration to aid in the diagnosis of vaginal infections in symptomatic women ages 14 and older. The performance characteristics of this test have been verified by the [facility]. Miryam Holliday NP LAB MICROBIOLOGY - GENERAL ORD ERABLES Final Result Performing Organization Address City/[facility]/ZIP Co de Phone Number [facility] [address] [address] Department [place] [address] [facility] * POCT urinalysis dipstick (01/02/2025 12:19 PM CDT) Color, Urine, POC Yellow Clarity, ur, POC Clear Clear Glucose, ur, POC Negative Negative Bilirubin, ur, POC Negative Negative Ketones, ur, POC Negative Negative Specific [place], POC 1.015 1.003 - 1.030 Blood, ur, POC Negative Negative pH, ur, POC 7.0 5.0 - 8.0 Protein, ur, POC Negative Negative Urobilinogen, urine, POC 0.2 0.2 - 1.0 mg/dL Nitrite, ur, POC Negative Negative Leukocytes, ur, POC Negative Negative Lot Number [id number] Urine 01/02/2025 12:1 9 PM CDT Miryam Holliday NP POINT OF CARE TEST ORDERABLES Final Result * Hepatitis panel, acute (11/28/2020 1:44 PM CDT) HepBsAg NONREACT NONREACTIVE [facility] Comment: Siemens CentaurXP using SHYANNE (chemiluminescent immunoassay) technology. NONREACTIVE: IgM antibodies to Hepatitis B Surface antigen not detected. REACTIVE: IgM antibodies to Hepatitis B Surface antigen detected. Reactive results will be confirmed by neutralization testing. HBsAb qn 33.80 mIU/mL [facility] Comment: Siemens CentaurXP using SHYANNE (chemiluminescent immunoassay) technology. 9.99 IU/L or less.....NONREACTIVE: IgM antibodies to Hepatitis B Surface antibody are not detected. 10.00 IU/L or greater..REACTIVE: IgM antibodies to Hepatitis B Surface antibody are detected. Hep B core IgM NONREACT NONREACTIVE [facility] Comment: Siemens CentaurXP using SHYANNE (chemiluminescent immunoassay) technology. NONREACTIVE: IgM antibodies to Hepatitis B Core antigen not detected. EQUIVOCAL: IgM antibodies to Hepatitis B Core antigen may or may not be present. Obtain a new specimen and retest. REACTIVE: IgM antibodies to Hepatitis B Core antigen detected. Hep A IgM NONREACT NONREACTIVE [facility] Comment: Siemens CentaurXP using SHYANNE (chemiluminescent immunoassay) technology. NONREACTIVE: IgM antibodies to Hepatitis A not detected. This does not exclude possibility of exposure to Hepatitis A or early acute infection. EQUIVOCAL:IgM antibodies to Hepatitis A may or may not be present. Suggest recollection and retest. REACTIVE: Antibodies to Hepatitis A detected. Hep C Ab NONREACT NONREACTIVE [facility] Comment: Siemens CentaurXP using SHYANNE (chemiluminescent immunoassay) technology. NONREACTIVE: Antibodies to Hepatitis C not detected. This does not exclude early acute Hepatitis C infection, possibility of exposure to Hepatitis C, antibodies below detection limit, or to lack of antibody reactivity to the antigen used in this assay. EQUIVOCAL: Antibodies to Hepatitis C may or may not be present. Sample to be confirmed by real-time PCR method. REACTIVE: Antibodies to Hepatitis C detected.Sample to be confirmed by real-time PCR method. 11/28/2020 1:44 PM CDT 11/28/2020 1:49 PM CDT Narrative Resulting Agency Comment CLI Marguerite JAMES LAB MICROBIOLOGY - [facility] L ORDERABLES Final Result [facility] [address] [place], [place] [address] [phone] from Last 3 Months or Most Recently Relevant to Health Maintenance Insurance [facility] Care Teams It Solutions Sales Consultant Relationship Specialty Start Date End Date Quin Nunez MD [address] [place] [address] [address] PCP - General Family Medicine 01/23/25 Juan Garcia MD [address] [place] [address] Consulting Physician Family Medicine 11/14/20
--- OUTSIDE RECORDS SUMMARY | 2025-03-28 14:40 | XMS_ITS | Encounter Summary ---
Author Organization [facility] Healthcare Address [address] [place] [address] Care Team Providers Care Water Commissioner Name Role Phone Juan Garcia MD Unavailable [phone] Quin Nunez MD Primary Care Provider [phone] Reason for Referral * Consultation (Routine) - Closed Specialty Diagnoses / Procedures Referred By Contac t Referred To Contact Psychiatry Diagnoses Bipolar 2 disorder (HCC) Quin Nunez MD [address] [place] [address] [address] C[address] [place] [address] Phone: tel: fax: External Order Referral ID Status Reason Start Date Expiration Date V isits Requested Visits Authorized [id number] Closed Specialty Services Required 03/28/2025 04/27/2026 1 1 Question Answer Please select the performing region: External Order [171] # of visits: 1 Comments [facility] Encounter Details Date Type Department Care Team (Late st Contact Info) Description 03/28/2025 Orders Only [facility] Medical Group Primary Care at [address] [place] [id number] Quin Nunez MD [address] [place] [address] Bipolar 2 disorder (HCC) (Primary Dx) Social History Tobacco Use Types Packs/Day Years [...] on file 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 Gender Identity Female 10/20/2021 10:26 PM CDT Sexual Orientation Straight 10/20/2021 10 :26 PM CDT documented as of this encounter Plan of Treatment Scheduled Referrals Name Type Priority Associated Diagnoses Order Schedule Ambulatory referral to Psychiatry Outpatient Referral Routine Bipolar 2 disorder (HCC) Expected: 05/28/2025 (Approximate), Expires: 03/28/2026 documented as of this encounter Visit Diagnoses Diagnosis Bipolar 2 disorder (HCC)- Primary Other bipolar disorders documented in this encounter Care Teams Water Commissioner Relationship Specialty Start Date End Date Quin Nunez MD [address] [place] [address] [address] [place] [id number] PCP - General Family Medicine 01/23/25 Juan Garcia MD [address] [place] [address] Consulting Physician Family Medicine 11/14/20 documented as of this encounter
--- OUTSIDE RECORDS SUMMARY | 2025-03-28 14:41 | XMS_ITS | Clinical Summary ---
Author Organization [facility] Address [address] [place] [address] Phone Care Team Providers Care Pouncing Lathe Operator Name Role Phone Yeimi Nuñez APRN, CNP Primary Care Provider [phone] Allergies Active Allergy Reactions Criticality Noted Date Comments Sulfa Antibiotics Hives 03/04/2016 Medications albuterol (PROVENTIL, VENTOLIN) (2.5 MG/3ML) 0.083% Nebulizer Soln 3 mL by Nebulization route every 4 hours as needed for Wheezing or Shortness of Breath. Inhale 1 vial in neb machine every 4-6 hours as needed 360 mL 5 02/27/20 21 Active albuterol 108 (90 Base) MCG/ACT Aerosol SolutionIndicati ons:Moderate persistent asthma with exacerbation take 2 Puffs by inhalation every 4 hours as needed for Wheezing or Cough. 18 g 5 04/14/20 21 Active terconazole (TERAZOL 7) 0.4 % Cream 1 Applicatorful by Vaginal route nightly. 15 g 04/23/20 21 Active metoclopramide (Reglan) 10 MG Tablet Take 1 Tablet by mouth 4 times daily. 15 Tablet 07/01/20 21 Active sertraline (ZOLOFT) 25 MG Tablet Take 25 mg by mouth daily. Active Vit-Fe Fumarate-FA ( VITAMINS PO) Take 1 Tablet by mouth daily. Active ondansetron (ZOFRAN-ODT) 4 MG TABLET DISPERSIBLE Take 4 mg by mouth every 8 hours as needed for Nausea - 1st line. Active budesonide-formo terol fumarate (Symbicort) 160-4.5 MCG/ACT AerosolIndicatio ns:Moderate persistent asthma with exacerbation take 2 Puffs by inhalation 2 times daily. 10.2 g 2 09/04/19 22 Active sertraline (ZOLOFT) 100 MG Tablet Take 100 mg by mouth daily. Active neomycin-polymyx in-hydrocortison e (CORTISPORIN) 3.5-68972-[address] 3 Drops in right ear 4 times daily. 10 mL 12/28/19 23 Active traMADol (ULTRAM) 50 MG TabletIndication s:External otitis of right ear Take 1-2 Tablets by mouth every 6 hours as needed for Moderate or more severe pain. 20 Tablet 12/28/19 23 Active ondansetron (ZOFRAN-ODT) 4 MG TABLET DISPERSIBLE Take 1 Tablet by mouth every 8 hours as needed for Nausea - 1st line. 20 Tablet 10/02/19 24 Active ondansetron (ZOFRAN-ODT) 4 MG TABLET DISPERSIBLEIndic ations:Nausea and Vomiting Take 1 Tablet by mouth every 8 hours as needed for Nausea - 1st line. Indications: Nausea and Vomiting 10 Tablet 06/24/20 24 Active ibuprofen (IBU) 800 MG Tablet Take 1 Tablet by mouth every 8 hours as needed for Moderate or more severe pain. 30 Tablet 09/20/19 25 Active Active Problems Problem Noted Date Diagnosed Date Bipolar disorder, unspecified 04/01/2021 Overview (04/01/2021): Diagnosed at 19 or 20 by [facility]. No evidence reported or observed Social anxiety disorder 03/16/2021 Hidradenitis suppurativa 02/26/2021 Gram negative sepsis 04/25/2017 Morbid obesity with BMI of 40.0-44.9, adult 04/04 Asthma 04/25/2017 Acute pyelonephritis 04/23/2017 Immunizations Immunization Administration Dates Next Due DTP Vaccine 1997 DTP-Hib 1997,1997 Hepatitis B Vaccine, Pediatric/adolescent 1997,1997,1997,1996 Hib Vaccine,unspecified Formulation 01/22/1998,0 1997 Inactivated Polio Vaccine 01/22/1998 Influenza Vaccine, Quadrivalent, PF 07/27/2013 Influenza Virus Vaccine, Whole Virus 06/09/2006 MMR Vaccine 06/01/2010,01/22/1998 OPV 05/28/2010, 8,1997,1996 TDAP Vaccine 06/05/2023,02/12/2008 Varicella Vaccine Live 07/27/2013 Family History Medical History Relation Name Comments Hypertension Father Asthma Mother Chronic Obstructive Pulmonary Disease Mother No Known Problems Sister 1 No Known Problems Sister 2 Relation Name Status Comments Father Alive Mother Alive Sister 1 Alive Sister 2 Alive Social History Tobacco Use Types Packs/Day Years Used Date Smoking Tobacco: Former Cigarettes Q uit: 12/05/2016 Cigars Smokeless Tobacco: Never Tobacco Cessation:Ready to Q uit: No; Counseling Given: Yes Comments:4/day Alcohol Use Standard Drinks/Week Comments Not [...] Sign Reading Time Taken Comments Blood Pressure 136/82 11/21/2024 5:35 PM CDT Pulse 87 11/21/2024 5:35 PM CDT Temperature 36.4 C (97.6 F) 11/21/2024 2:38 PM CDT Respiratory Rate 20 11/21/2024 5:35 PM CDT Oxygen Saturation 100% 11/21/2024 5:35 PM CDT Inhaled Oxygen Concentration - - Weight 120.7 kg (266 lb) 11/21/2024 2:38 PM CDT Height 177.8 cm (5' 10) 11/21/2024 2:38 PM CDT Body Mass Index 38.17 11/21/2024 2:38 PM CDT Plan of Treatment Health Maintenance Due Date Last Done Comments Pap Smear 2018 Pneumococcal Immunization Combined (2 of 2 - PCV) 11/05/2022 11/05/2021 Human Papillomavirus (HPV) Immunization (1 - 3-dose SCDM series) 01/21/2024 Influenza Immunization (#1) 2025 08/10/2024, 0 07/27/2013 SARS-COV-2 Immunization (1 - 2023- season) 2025 DTaP/Tdap/Td Immunization (8 - Td or Tdap) 06/05/2033 06/05/2023, 10/26/2021, 10/06/2021, Additional history exists Respiratory Syncytial Virus (RSV) Immunization (Adult) (1 - 1-dose 75+ series) 01/21/2072 Hepatitis B Immunization Completed 998, 1997, 1997, Additional history exists Hepatitis C Virus (HCV) Screening Completed 06/05/2021 Meningococcal Immunization (ACWY) Aged Out No longer eligible based on patient's age to complete this topic Rotavirus Immunization Aged Out No lo nger eligible based on patient's age to complete this topic Goals Goal Patient Goal Type Associated Problems [...] Ready to change Department associated with goal: [facility] Steps to achieve goal: [...] Ready to change Department associated with goal: [facility] Steps to achieve goal: [...] individual and/or group therapy at least 1x/month Insurance MEDICAID [employer] Advance Directives * Full Code (Latest Code Status on File) Date Activated Date Inactivated Comments 04/23/2017 11:57 AM 04/25/2017 8:30 PM CPR-Full Treatment: FULL ARREST: Attempt Resuscitation/CPR wit intubation and mechanical ventilation. PRE-ARREST: Use entire range of life support measures to stabilize the patient. Care Teams Pouncing Lathe Operator Relationship Specialty Start Date End Date Yeimi Nuñez APRN, PROJECT DESIGN ENGINEER PCP - General Family Medicine 05/19/22
== END 2025-03-28 13:26 | disposition home or self-care (01) ==
PROVIDERS: Emergency Provider Registered Nurse
DX: H65.01 Acute serous otitis media, right ear (principal); J45.901 Unspecified asthma with (acute) exacerbation; Z87.891 Personal history of nicotine dependence
CPT/HCPCS: 99213; G0463

== ENCOUNTER 2025-05-23 15:12 | Emergency (ER) | payer OTHER, SELFPAY ==
--- NOTE | ~2025-05-23 | XR_ITS ---
EXAMINATION: XR shoulder LT min 2V, 05/23/2025 16:10 [employer]IC [employer]ER HISTORY: no injury COMPARISON: No comparisons available. Findings: No acute fracture or malalignment. No significant degenerative changes. Soft tissues unremarkable. Impression: No acute fracture or malalignment. Reviewed, dictated and finalized at location P. STIC CLEANER Impression: No acute fracture or malalignment.
[2025-05-23 15:16] VITALS: BP 138/87; PULSE 71; RESP 20; TEMP 36.6; O2SAT 100
--- NOTE | 2025-05-23 15:55 | ED.GENADULT ---
HPI - General Adult General Chief complaint: Extremity Injury, Upper Stated complaint: left shoulder pain Time Seen by Provider: 05/23/25 15:55 Source: patient, RN notes reviewed and old records reviewed Mode of arrival: ambulatory Limitations: no limitations History of Present Illness HPI narrative: 30 year old female who presents to [facility] care with complaints of left upper scapular pain which radiates to her left neck and top of shoulder for the past few days. Patient reports that she has had discomfort off and on to her left shoulder for 2years with no known injury. Patient has full ROM of her left shoulde with strong pulses to left arm, full mobility of neck also, Patient denies any tingling or numbness to left arm or hand. Patient reports that she has taken some Tylenol for her discomfort. MD complaint: shoulder, scapula to left neck and shoulder Onset (ago): day(s) (flare of pain for past 2 days) Location: left and upper extremity (left scapula to left neck and top of shoulder reported today) Severity scale (1-10): 6 Treatments prior to arrival: other (Tylenol) Related Data Home Medications ?Medication ?Instructions ?Recorded ?Confirmed ?Last Taken ?Type budesonide-formoterol HFA 160 1 inh inhalation PRN PRN asthma 12/16/21 12/21/21 12/21/21 08:00 History mcg-4.5 mcg/actuation aerosol inhaler (Symbicort) aripiprazole 5 mg tablet mg 04/23/24 Unknown History Allergies Allergy/AdvReac Type Severity Reaction Status Date / Time cat dander Allergy Hives Verified 03/28/25 12:11 Sulfa (Sulfonamide Allergy Hives Verified 03/28/25 12:11 Antibiotics) Review of Systems Review of Systems: CONSTITUTIONAL: Denies fever, chills, or sweats. EYES: Denies visual changes, redness, or discharge. ENT: Denies rhinorrhea, congestion, sore throat, or otalgia. CARDIOVASCULAR: Denies chest pain, palpitations, or edema. RESPIRATORY: Denies cough or dyspnea. GASTROINTESTINAL: Denies abdominal pain, nausea, vomiting, or diarrhea. GENITOURINARY: Denies dysuria or hematuria. SKIN: Denies rash or itching. MUSCULOSKELETAL: Reports left scapular pain radiates to neck and to top of left shoulder denies any known injury, or myalgia. NEUROLOGIC: Denies headache, numbness, or weakness. PSYCHIATRIC: Positive for history of anxiety or depression. All systems reviewed & are unremarkable except as noted in HPI and below PMFSH Past Medical History Medical History History of psychiatric treatment Depression Bipolar 1 disorder IBS (irritable bowel syndrome) delivery delivered Asthma Anxiety Surgical History Surgical History History of placement of ear tubes 2-3 times as child Hx of tonsillectomy History of cholecystectomy Family History Family History Mother Asthma Chronic obstructive pulmonary disease Bipolar 1 disorder Depression Father Bipolar 1 disorder Hypertension Grandparent Depression Heart disease Skin cancer Social History Social History Smoking status: Former smoker Tobacco type: cigars Second hand tobacco smoke exposure: No Alcohol intake: unknown Substance use: former Substance use type: does not use Last use: last time in october 2021 Gender identity (if verbalized by the patient): Female Spiritual care concerns: No Comments At time of signature, agree with nursing past medical, surgical, social and family history. There is no relevant family history pertinent to the presenting complaint Exam Narrative: GENERAL: Well-appearing, well-nourished, and in no acute distress. HEAD: Normocephalic, atraumatic. EYES: PERRLA and EOMI. ENT: Nares clear, no rhinorrhea or epistaxis. Mucous membranes moist.TM's normal throat pink with no redness or exudates NECK: Supple. no lymphadenopathy full ROM noted CHEST: Clear to auscultation. No respiratory distress.SAO2 100% on room air HEART: Regular rate and rhythm. No murmur heard. Normal peripheral pulses. ABDOMEN: Soft, nontender, nondistended, normal active bowel sounds. EXTREMITIES: Normal range of motion. No edema. SKIN: Warm, dry, no rash.reports scapular pain left radiating to left neck and top of left shoulder, Circulation sensation and mobility intact to eft arm and shoulder. Palpable tenderness along Levator muscle left NEURO: No focal deficits. Alert and oriented x3. Course Course Emergency Course: Patient is aware of diagnosis, understands and agrees to treatment plan.? Anticipatory guidance given.? Patient agrees to follow-up as directed and is aware of reasons to seek care at the emergency department. Portions of this record may have been created with voice recognition software Level of Care: Express Care Visit Vital Signs Vital signs: Vital Signs Temperature 36.6 C 05/23/25 15:16 Pulse Rate 71 05/23/25 15:16 Respiratory Rate 20 05/23/25 15:16 Blood Pressure 138/87 05/23/25 15:16 Pulse Oximetry 100 05/23/25 15:16 Oxygen Delivery Room Air 05/23/25 15:16 Temperature 36.6 C 05/23/25 15:16 Pulse Rate 71 05/23/25 15:16 Respiratory Rate 20 05/23/25 15:16 Blood Pressure 138/87 05/23/25 15:16 Pulse Oximetry 100 05/23/25 15:16 Oxygen Delivery Room Air 05/23/25 15:16 Reviewed Medical Decision Making MDM Narrative Medical decision making narrative: Exam findings and imaging show no acute concerns or changes; patient is non-toxic appearing and is in no distress.? Patient is appropriate for outpatient treatment and follow-up Differential Diagnosis Differential Diagnosis: left shoulder pain, left shoulder strain, scapular pain left, Levator muscle strain Medical Records Medical records reviewed: Yes I reviewed the external patient's medical records. Vital Signs Vital Signs: Vital Signs Temperature 36.6 C 05/23/25 15:16 Pulse Rate 71 05/23/25 15:16 Respiratory Rate 20 05/23/25 15:16 Blood Pressure 138/87 05/23/25 15:16 Pulse Oximetry 100 05/23/25 15:16 Oxygen Delivery Room Air 05/23/25 15:16 Temperature 36.6 C 05/23/25 15:16 Pulse Rate 71 05/23/25 15:16 Respiratory Rate 20 05/23/25 15:16 Blood Pressure 138/87 05/23/25 15:16 Pulse Oximetry 100 05/23/25 15:16 Oxygen Delivery Room Air 05/23/25 15:16 reviewed Imaging Data Attestation: I personally reviewed and interpreted this imaging study as follows: My impression: no fracture or mal alignment of left shoulder Radiologist's impression: Shannan Morrow??30??F??1995 ? Allergy/Adv: cat dander, Sulfa (Sulfonamide Antibiotics) [facility] [address] [place] [address] XRay Report Signed Patient: Shannan Morrow : 1995 MR#: [id number] Age: 30 Acct:[id number] Loc: [facility] ADM Date: 05/23/[address]: Ordering Physician: Pao Oshea APRN Date of Service: 05/23/25 Procedure(s): XR shoulder LT min 2V Accession Number(s): [id number] cc: Pao Oshea APRN~ EXAMINATION: XR shoulder LT min 2V, 05/23/2025 16:10 [employer] MEDICAL SAFETY HISTORY: no injury COMPARISON: No comparisons available. Findings: No acute fracture or malalignment. No significant degenerative changes. Soft tissues unremarkable. Impression: No acute fracture or malalignment. Reviewed, dictated and finalized at location P. [facility] [employer] [employer] Please be advised this is a medical document. It is intended for [id number]-[id number] communication. It is written in medical language and may contain unfamiliar abbreviations or verbiage. Medical documents are intended to carry relevant information, facts as evident, and the clinical opinion of the practitioner at the time of the encounter. This report may have been done utilizing a voice recognition system. Attempts have been made to correct errors. However, there may be uncorrected grammatical, spelling, and recognition errors present. The file time of this note does not necessarily represent the time of service. Dictated By: Jayant Jeronimo MD 05/23/25 1625 Signed By: <Electronically signed by Jayant Jeronimo MD in OV> Critical Care Time Critical Care Time Critical Care Time: No Discharge Plan Discharge Clinical Impression: Strain of left levator scapulae muscle Patient Disposition: Home Condition: Stable Instructions: Antibiotic Form, Shoulder Pain (ED) Additional Instructions: Tylenol for lesser pain Ibuprofen regularly for the next 2-3 days for the inflammation Follow-up with orthopedic surgeon if continued problems Follow-up with PCP if further problems or concerns Ice to the area 20-30 minutes 4-6 times a day Elevate above heart prednisone 20 mg twice daily for 5 days If your symptoms persist, change or worsen significantly before you can contact your personal physician then please, without delay, go to the emergency department for further evaluation. Follow-up with PCP in 7-10 days or sooner if needed Follow up with PCP soon in regards to your blood pressure which is elevated above threshold for referral. Blood pressure above 120/80 may indicate pre-hypertension. 138/87 Patient Language: Kittitian Prescriptions: New prednisone 20 mg tablet 40 mg PO DAILY 5 Days Qty: 10 0RF Rx Instructions: start tomorrow No Action albuterol sulfate [Ventolin HFA] 90 mcg/actuation HFA aerosol inhaler 2 puff inhalation QID PRN (Reason: shortness of breath or wheezing) Qty: 6.7 0RF Rx Instructions: as needed for exacerbation of symptoms prednisone 20 mg tablet 40 mg PO DAILY Qty: 10 0RF amoxicillin-pot clavulanate 500-125 mg tablet 1 tablet PO Q12H Qty: 20 0RF Rx Instructions: take with food recommend taking with probiotic or eating yogurt while on this med aripiprazole 5 mg tablet budesonide-formoterol [Symbicort] 160-4.5 mcg/actuation HFA aerosol inhaler 1 inh INHALATION PRN PRN (Reason: asthma) Follow-up/Referrals: PHYSICIAN NOT ON STAFF,NONSTAFF [Primary Care Provider] Time of Disposition: 16:36 Quality [place] Coma Scale Eyes: Open Verbal: Oriented and Alert Motor: Follows Commands [place] Coma Total Score: 15
--- OUTSIDE RECORDS SUMMARY | 2025-05-23 18:02 | XMS_ITS | Data Portability ---
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 Height Fundus Units Glucose Ketones Leukocytes Nitrite Labor Signs Protein Cervic Dilation Cervic Effacement Cervic Station trace Type Weight in lbs Pre/Post Dialysis Refused Weight 298.542186445243 BP Diastolic BP Location Tested BP Systolic BP Type 73 143 80 140 Fetus Heart Rate Present A 150 Fetus Movement A Yes Comments Doing well. Declines AFP. An atomy US next visit. Several borderline BPs so far. Discussed likely pre-hypertensive outside of . Flowsheet Date 08/19/2021 Deluna Score Blood Edema Fundus Height Fundus Units Glucose Ketones Leukocytes Nitrite Labor Signs Protein Cervic Dilation Cervic Effacement Cervic Station Type Weight in lbs Pre/Post Dialysis Refused BP Diastolic BP Location Tested BP Systolic BP Type Fetus Heart Rate Present Fetus Movement Comments Flowsheet Date 08/19/2021 Deluna Score Blood Edema Fundus Height Fundus Units Glucose Ketones Leukocytes Nitrite Labor Signs Protein Cervic Dilation Cervic Effacement Cervic Station neg none 24 none trace Type Weight in lbs Pre/Post Dialysis Refused Weight 298.389937748950 BP Diastolic BP Location Tested BP Systolic BP Type 82 130 Fetus Heart Rate Present A 135 Fetus Movement A Yes Comments Doing very well. FEels good. Mood good. STill using MJ but less. Will try to quit soon. Anatomy complete and wnl today. Taking ASA. Will schedule growth. Flowsheet Date 09/16/2021 Deluna Score Blood Edema Fundus Height Fundus Units Glucose Ketones Leukocytes Nitrite Labor Signs Protein Cervic Dilation Cervic Effacement Cervic Station Type Weight in lbs Pre/Post Dialysis Refused BP Diastolic BP Location Tested BP Systolic BP Type Fetus Heart Rate Present Fetus Movement Comments Flowsheet Date 09/16/2021 Deluna Score Blood Edema Fundus Height Fundus Units Glucose Ketones Leukocytes Nitrite Labor Signs Protein Cervic Dilation Cervic Effacement Cervic Station neg none 28 none trace Type Weight in lbs Pre/Post Dialysis Refused Weight 299.6014766550 BP Diastolic BP Location Tested BP Systolic BP Type 88 132 Fetus Heart Rate Present A 135 Fetus Movement A Yes Comments Had hand surgery after punch ed steering wheel, healing well, off narcotics. Despite this incident, states her mood is actually very good Asthma not great- taking symbicort and still using albuterol 2-4x/day. Down to 2 blunts of MJ per day from 5, will quit in 2-3 weeks. GCT next. Will discuss Tdap next. Growth 58% today. Flowsheet Date 10/02/2021 Deluna Score Blood Edema Fundus Height Fundus Units Glucose Ketones Leukocytes Nitrite Labor Signs Protein Cervic Dilation Cervic Effacement Cervic Station neg trace trace Type Weight in lbs Pre/Post Dialysis Refused Weight 302.840206132196 BP Diastolic BP Location Tested BP Systolic BP Type 82 130 Fetus Heart Rate Present A 145 Fetus Movement A Yes Comments PATIENT IS HAVING SOME SWELL ING,NAUSEA AND VOMITING. precautions reviewed, using albuterol less, gct today, rec Tdap f/u 2 weeks Flowsheet Date 10/13/2021 Deluna Score Blood Edema Fundus Height Fundus Units Glucose Ketones Leukocytes Nitrite Labor Signs Protein Cervic Dilation Cervic Effacement Cervic Station Type Weight in lbs Pre/Post Dialysis Refused Weight 300.054556867838 BP Diastolic BP Location Tested BP Systolic BP Type 91 133 Fetus Heart Rate Present Fetus Movement Comments Pt here for NST due to decre ased movement. BP slightly elevated on arrival. Pt states she is very anxious at this time. Pt denies SOUTH, visual disturbances, and epigastric pain. NST Reactive for gestational age. BP 148/85 after NST. Per KP, pt to have PIH labs drawn in office and schedule 1 week BP check. Pt informed. Pt instructed on PIH precautions and instructed to call if she experiences a change in symptoms. Pt verbalized understanding. Leonarda Hernandez RN Flowsheet Date 10/23/2021 Deluna Score Blood Edema Fundus Height Fundus Units Glucose Ketones Leukocytes Nitrite Labor Signs Protein Cervic Dilation Cervic Effacement Cervic Station Type Weight in lbs Pre/Post Dialysis Refused BP Diastolic BP Location Tested BP Systolic BP Type Fetus Heart Rate Present Fetus Movement Comments Flowsheet Date 10/23/2021 Deluna Score Blood Edema Fundus Height Fundus Units Glucose Ketones Leukocytes Nitrite Labor Signs Protein Cervic Dilation Cervic Effacement Cervic Station neg none trace Type Weight in lbs Pre/Post Dialysis Refused Weight 303.822273933518 BP Diastolic BP Location Tested BP Systolic BP Type 84 136 Fetus Heart Rate Present Fetus Movement A Yes Comments PATIENT IS HAVING SOME BH CO NTRACTIONS, PAIN, DISCHARGE, NAUSEA AND VOMITING.EFW today at visit, does not have glucose log some high, one fasting 60. will call with numbers, precautions reviewed f/u as scheduled, plan nst at 32 weeks, GDM Flowsheet Date 10/27/2021 Deluna Score Blood Edema Fundus Height Fundus Units Glucose Ketones Leukocytes Nitrite Labor Signs Protein Cervic Dilation Cervic Effacement Cervic Station Type Weight in lbs Pre/Post Dialysis Refused BP Diastolic BP Location Tested BP Systolic BP Type Fetus Heart Rate Present Fetus Movement Comments Flowsheet Date 11/04/2021 Deluna Score Blood Edema Fundus Height Fundus Units Glucose Ketones Leukocytes Nitrite Labor Signs Protein Cervic Dilation Cervic Effacement Cervic Station Type Weight in lbs Pre/Post Dialysis Refused BP Diastolic BP Location Tested BP Systolic BP Type Fetus Heart Rate Present Fetus Movement Comments Flowsheet Date 11/04/2021 Deluna Score Blood Edema Fundus Height Fundus Units Glucose Ketones Leukocytes Nitrite Labor Signs Protein Cervic Dilation Cervic Effacement Cervic Station Type Weight in lbs Pre/Post Dialysis Refused BP Diastolic BP Location Tested BP Systolic BP Type Fetus Heart Rate Present Fetus Movement Comments Flowsheet Date 11/04/2021 Deluna Score Blood Edema Fundus Height Fundus Units Glucose Ketones Leukocytes Nitrite Labor Signs Protein Cervic Dilation Cervic Effacement Cervic Station neg trace none trace Type Weight in lbs Pre/Post Dialysis Refused Weight 301.166362133796 BP Diastolic BP Location Tested BP Systolic BP Type 77 112 Fetus Heart Rate Present Fetus Movement A Yes Comments PATIENT IS HAVING SOME BH CO NTRACTIONS, PAIN, DISCHARGE, SWELLING AND NAUSEA. bpp 8/8, doing well, ice for wrists, blood sugars all wnl, preadmission scheduled, f/u next week, continue zoloft disc se risks and benefits Flowsheet Date 11/09/2021 Deluna Score Blood Edema Fundus Height Fundus Units Glucose Ketones Leukocytes Nitrite Labor Signs Protein Cervic Dilation Cervic Effacement Cervic Station Type Weight in lbs Pre/Post Dialysis Refused BP Diastolic BP Location Tested BP Systolic BP Type Fetus Heart Rate Present Fetus Movement Comments Flowsheet Date 11/09/2021 Deluna Score Blood Edema Fundus Height Fundus Units Glucose Ketones Leukocytes Nitrite Labor Signs Protein Cervic Dilation Cervic Effacement Cervic Station neg trace 36 none trace Type Weight in lbs Pre/Post Dialysis Refused Weight 297.895295680564 BP Diastolic BP Location Tested BP Systolic BP Type 90 136 88 102 Fetus Heart Rate Present A 130 Fetus Movement A Yes Comments Doing well. GDM- sugars perf ect. Tdap is doine. Stopped MJ- UDS next visit. Valtrex at 35-36w, she already has script. Some gas pain but not constipated- will try GasX. Flowsheet Date 11/09/2021 Deluna Score Blood Edema Fundus Height Fundus Units Glucose Ketones Leukocytes Nitrite Labor Signs Protein Cervic Dilation Cervic Effacement Cervic Station Type Weight in lbs Pre/Post Dialysis Refused BP Diastolic BP Location Tested BP Systolic BP Type Fetus Heart Rate Present Fetus Movement Comments Flowsheet Date 11/16/2021 Deluna Score Blood Edema Fundus Height Fundus Units Glucose Ketones Leukocytes Nitrite Labor Signs Protein Cervic Dilation Cervic Effacement Cervic Station Type Weight in lbs Pre/Post Dialysis Refused BP Diastolic BP Location Tested BP Systolic BP Type Fetus Heart Rate Present Fetus Movement Comments Flowsheet Date 11/16/2021 Deluna Score Blood Edema Fundus Height Fundus Units Glucose Ketones Leukocytes Nitrite Labor Signs Protein Cervic Dilation Cervic Effacement Cervic Station Type Weight in lbs Pre/Post Dialysis Refused BP Diastolic BP Location Tested BP Systolic BP Type Fetus Heart Rate Present Fetus Movement Comments Flowsheet Date 11/16/2021 Deluna Score Blood Edema Fundus Height Fundus Units Glucose Ketones Leukocytes Nitrite Labor Signs Protein Cervic Dilation Cervic Effacement Cervic Station Type Weight in lbs Pre/Post Dialysis Refused Weight 295.525388411206 BP Diastolic BP Location Tested BP Systolic BP Type 74 R arm 138 sitting Fetus Heart Rate Present A 145 Fetus Movement Comments diabetes controlled, startin g herpes prophylaxis, good growth, continues testing. Flowsheet Date 11/25/2021 Deluna Score Blood Edema Fundus Height Fundus Units Glucose Ketones Leukocytes Nitrite Labor Signs Protein Cervic Dilation Cervic Effacement Cervic Station Type Weight in lbs Pre/Post Dialysis Refused BP Diastolic BP Location Tested BP Systolic BP Type Fetus Heart Rate Present Fetus Movement Comments Flowsheet Date 11/25/2021 Deluna Score Blood Edema Fundus Height Fundus Units Glucose Ketones Leukocytes Nitrite Labor Signs Protein Cervic Dilation Cervic Effacement Cervic Station Type Weight in lbs Pre/Post Dialysis Refused BP Diastolic BP Location Tested BP Systolic BP Type Fetus Heart Rate Present Fetus Movement Comments Flowsheet Date 11/25/2021 Deluna Score Blood Edema Fundus Height Fundus Units Glucose Ketones Leukocytes Nitrite Labor Signs Protein Cervic Dilation Cervic Effacement Cervic Station neg none none trace Type Weight in lbs Pre/Post Dialysis Refused Weight 294.616173368831 BP Diastolic BP Location Tested BP Systolic BP Type 89 132 Fetus Heart Rate Present Fetus Movement A Yes Comments patient is having some cramp ing, contractions, discharge, and nausea. doing well HS outbreak will call out clindamycin, gbs today, cervix closed nst r, gdm diet controlled reviewed sugars Flowsheet Date 12/01/2021 Deluan Score Blood Edema Fundus Height Fundus Units Glucose Ketones Leukocytes Nitrite Labor Signs Protein Cervic Dilation Cervic Effacement Cervic Station Type Weight in lbs Pre/Post Dialysis Refused BP Diastolic BP Location Tested BP Systolic BP Type Fetus Heart Rate Present Fetus Movement Comments Flowsheet Date 12/01/2021 Deluna Score Blood Edema Fundus Height Fundus Units Glucose Ketones Leukocytes Nitrite Labor Signs Protein Cervic Dilation Cervic Effacement Cervic Station Type Weight in lbs Pre/Post Dialysis Refused BP Diastolic BP Location Tested BP Systolic BP Type Fetus Heart Rate Present Fetus Movement Comments Flowsheet Date 12/01/2021 Deluna Score Blood Edema Fundus Height Fundus Units Glucose Ketones Leukocytes Nitrite Labor Signs Protein Cervic Dilation Cervic Effacement Cervic Station neg trace 37 Type Weight in lbs Pre/Post Dialysis Refused Weight 295.893475999518 BP Diastolic BP Location Tested BP Systolic BP Type 82 124 Fetus Heart Rate Present A 135 Fetus Movement A Yes Comments Doing well except boils in v ulvar area. one drained, two others havent and one is huge on right inner thigh. Clinda topical did not help, in fact they are getting worse/more painful. see procedure note for I and DKyra keflex to start today. Sitz baths QID.BPP 10/10, DEVON now normal. BS great. Taking valtrex. GBS neg. Decided to stay on zoloft. Flowsheet Date 12/09/2021 Deluna Score Blood Edema Fundus Height Fundus Units Glucose Ketones Leukocytes Nitrite Labor Signs Protein Cervic Dilation Cervic Effacement Cervic Station Type Weight in lbs Pre/Post Dialysis Refused BP Diastolic BP Location Tested BP Systolic BP Type Fetus Heart Rate Present Fetus Movement Comments Flowsheet Date 12/09/2021 Deluna Score Blood Edema Fundus Height Fundus Units Glucose Ketones Leukocytes Nitrite Labor Signs Protein Cervic Dilation Cervic Effacement Cervic Station neg trace none trace 1cm Type Weight in lbs Pre/Post Dialysis Refused Weight 298.788815600454 BP Diastolic BP Location Tested BP Systolic BP Type 72 130 Fetus Heart Rate Present Fetus Movement A Yes Comments patient is having contractio ns, cramping, discharge, and swelling. bpp 02/08 will schedule IOL next week, another abscess this one on right inner thigh, on antibiotics currently from wound culture on abscess drained last week, precautions reviewed see note in chart Flowsheet Date 12/09/2021 Deluna Score Blood Edema Fundus Height Fundus Units Glucose Ketones Leukocytes Nitrite Labor Signs Protein Cervic Dilation Cervic Effacement Cervic Station Type Weight in lbs Pre/Post Dialysis Refused BP Diastolic BP Location Tested BP Systolic BP Type Fetus Heart Rate Present Fetus Movement Comments Flowsheet Date 12/16/2021 Deluna Score Blood Edema Fundus Height Fundus Units Glucose Ketones Leukocytes Nitrite Labor Signs Protein Cervic Dilation Cervic Effacement Cervic Station Type Weight in lbs Pre/Post Dialysis Refused BP Diastolic BP Location Tested BP Systolic BP Type Fetus Heart Rate Present Fetus Movement Comments Flowsheet Date 12/16/2021 Deluna Score Blood Edema Fundus Height Fundus Units Glucose Ketones Leukocytes Nitrite Labor Signs Protein Cervic Dilation Cervic Effacement Cervic Station neg trace none trace 1cm 60% -2 Type Weight in lbs Pre/Post Dialysis Refused Weight 303.747709123321 BP Diastolic BP Location Tested BP Systolic BP Type 85 147 Fetus Heart Rate Present Fetus Movement A Yes Comments patient is having some cramp ing, discharge, and swelling. reviewed precautions plan IOL at 39 weeks, obesity and GDM, NST R Dr ernandez to schedule rpt bp 140/80 -- BP after U/S 145/79. Per SP, pt to [facility] for BP monitoring and PIH lalbs. MK, RN Flowsheet Date 12/16/2021 Deluna Score Blood Edema Fundus Height Fundus Units Glucose Ketones Leukocytes Nitrite Labor Signs Protein Cervic Dilation Cervic Effacement Cervic Station Type Weight in lbs Pre/Post Dialysis Refused BP Diastolic BP Location Tested BP Systolic BP Type Fetus Heart Rate Present Fetus Movement Comments Flowsheet Date 12/30/2021 Deluna Score Blood Edema Fundus Height Fundus Units Glucose Ketones Leukocytes Nitrite Labor Signs Protein Cervic Dilation Cervic Effacement Cervic Station Type Weight in lbs Pre/Post Dialysis Refused Weight 284.489871179153 BP Diastolic BP Location Tested BP Systolic BP Type 96 159 90 136 Fetus Heart Rate Present Fetus Movement Comments Flowsheet Date 01/06/2022 Deluna Score Blood Edema Fundus Height Fundus Units Glucose Ketones Leukocytes Nitrite Labor Signs Protein Cervic Dilation Cervic Effacement Cervic Station Type Weight in lbs Pre/Post Dialysis Refused Weight 278.245176669609 BP Diastolic BP Location Tested BP Systolic BP Type 82 121 Fetus Heart Rate Present Fetus Movement Comments Flowsheet Date 02/08/2022 Deluna Score Blood Edema Fundus Height Fundus Units Glucose Ketones Leukocytes Nitrite Labor Signs Protein Cervic Dilation Cervic Effacement Cervic Station Type Weight in lbs Pre/Post Dialysis Refused Weight 279.631181707054 BP Diastolic BP Location Tested BP Systolic BP Type 81 144 Fetus Heart Rate Present Fetus Movement Comments Menstrual History Last Menstrual Date Menses Monthly On Bcp Conception Prior Menses Frequency Hcg Plus Date Menarche Onset Age 0903/21/2021 Genetic Screening And Infection History Question Response Note Mental Retardation/Autism false Patient's Age Will Be 35 Years Or Older At Estim ated Date of Delivery false Thalassemia (Slovak, Divehi, Mediterranean, Or Background): MCV < 80 false Neural Tube Defect (Meningomyelocele, Spina Bifi da, Or Anencephaly) false Congenital Heart Defect false Down Syndrome false Juliano-Sachs (eg, Episcopal, Cajun, Tamazight-Haitian) f alse Gerald Disease false Sickle Cell Disease Or Trait () false Hemophilia Or Other Blood Disorders false Muscular Dystrophy false Cystic Fibrosis false Kingsbury's Chorea false Intellectual Disability/Autism false If Yes, Was Person Tested For Fragile X? false Other Inherited Genetic Or Chromosomal Disorder false Maternal Metabolic Disorder (eg, Type 1 Diabetes , PKU) false Patient Or Baby's Father Had A Child With Defects Not Listed Above false Recurrent Loss, Or A Stillbirth false Medications (including Suppl ements, Vitamins, Herbs, OTC Drugs), Illicit/Recreational Drugs, Alcohol true If Yes, Agent(s) And Strength/Dosage false Any Other Genetic History false Live With Someone With TB Or Exposed To TB false Patient Or Partner Has History Of Genital Herpes false Rash Or Viral Illness Since Last Menstrual Perio d false History Of STD, Gonorrhea, Chlamydia, HPV, Syphi lis false Other Infection History false History of HIV false History of Hepatitis false Prior GBS-infected child false Hemoglobinopathy Or Carrier false Other Structural Defect false Recent Travel History Outside of Country false Delivery Information Delivery Date Delivery Type Labor Anesthesia Weeks Gestation Incision Type Labor Labor Length Hrs Delivered By Post Complications Tubal Sterilization Discharge Date Comments 2 Induce d [facility] 39.4 Low Transvers e false Diane Ernandez MD GDM, Maternal obesity, herpes simplex & arrest of dilatatio n Discharge Information Feeding Method Contraceptive Method Maternal HG B and HCT Levels
--- OUTSIDE RECORDS SUMMARY | 2025-05-23 18:02 | XMS_ITS | Clinical Summary ---
Author Organization [facility] Address [address] [place] [address] Care Team Providers Care Stemming Machine Operator Name Role Phone Deborah De La Cruz MD Primary Care Provider [phone] Allergies Active Allergy Reactions Criticality Noted Date [...] for wheezing. 1 Inhaler 07/30/19 18 Active nebulizer accessories kitIndications: Asthma, unspecified asthma severity, unspecified whether complicated, unspecified whether persistent Use with nebulizer as directed. 1 kit 01/07/20 21 Active Symbicort 160-4.5 mcg/actuation inhaler Inhale 2 puffs 2 (two) times a day 1 each 3 01/24/20 25 Active valACYclovir (VALTREX) 1 gram tablet Take 1 tablet (1,000 mg total) by mouth as needed 11/22/19 25 Active buPROPion XL (WELLBUTRIN XL) 150 mg 24 hr tabletIndicatio ns:Recurrent major depressive disorder, in partial remission,Anxie ty Take 1 tablet (150 mg total) by mouth every morning 90 tablet 05/14/20 Active loperamide (IMODIUM) 2 mg capsuleIndicati ons:Diarrhea, unspecified type Take 1 capsule (2 mg total) by mouth 4 (four) times a day as needed for diarrhea 30 capsule 12/20/19 21 025 Discontinu ed(Patient Reported) montelukast (SINGULAIR) 10 mg tablet 10/15/19 22 025 Discontinu ed(Patient Reported) sertraline (ZOLOFT) 50 mg tablet 10/20/19 22 025 Discontinu ed(Patient Reported) sertraline (ZOLOFT) 100 mg tablet 04/24/20 22 025 Discontinu ed(Patient Reported) lamoTRIgine (LaMICtal) 25 mg tabletIndicatio ns:Seizures, generalized convulsive (HCC) Take 1 tablet (25 mg total) by mouth 2 (two) times a day for 14 days, THEN 2 tablets (50 mg total) 2 (two) times a day. 120 tablet 3 08/15/19 25 025 Discontinu ed(Patient Reported) metroNIDAZOLE (METROGEL) 0.75 % (37.5mg/5 gram) vaginal gelIndications: Bacterial Vaginosis Apply to vagina nightly twice weekly 70 g 2 02/13/20 25 025 Discontinu ed(Patient Reported) ARIPiprazole (ABILIFY) 5 mg tablet Take 1 tablet (5 mg total) by mouth daily 30 tablet 1 03/19/20 25 025 Discontinu ed(Patient Reported) fluconazole (DIFLUCAN) 150 mg tabletIndicatio ns:Urinary Tract/Genitouri nary Infection Take 1 tablet (150 mg total) by mouth once for 1 dose Take one tab now. Repeat in 7 days if symptoms persist. 1 tablet 1 05/17/20 25 Active Problems Problem Noted Date Diagnosed Date Anxiety 04/25/2025 Assessment & Plan (05/19/2025 4:58 PM TUBE BUFFER): Chronic, uncontrolled. 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 PHQ-9 score of 21 - severe Start Bupropion 150 mg daily No HI/SI Follow up in 6-8 weeks Orders: buPROPion XL (WELLBUTRIN XL) 150 mg 24 hr tablet; Take 1 tablet (150 mg total) by mouth every morning Assessment & Plan (11/09/2021 5:58 PM CDT): Not currently following with psychiatry per patient. Per chart review had apt with TECHNOLOGY SALES REPRESENTATIVE 03/2021. Was attending therapy regularly and felt it was helpful. Denies any recent mood disturbance, denies SI/HI. Discussed benefits of continuing counseling. Assessment & Plan (11/20/2020 9:28 AM CDT): See above. PTSD (post-traumatic stress disorder) 11/20/2020 Assessment & Plan (11/20/2020 9:29 AM CDT): See above. Bipolar 2 disorder 11/20/2020 Assessment & Plan (05/19/2025 4:58 PM TUBE BUFFER): Chronic, unstable. Patient reports stopping on all medications. Per chart review, in February patient was started on Abilify but stopped taking that as well. She was previously managed at [facility] and in the process of switching psychiatrist. Start Wellbutrin 150 mg daily Follow up in 6 to 8 weeks. Assessment & Plan (02/12/2025 3:33 PM CDT): [...] of 40.0-44.9, adult 11/02 Assessment & Plan (05/19/2025 4:58 PM TUBE BUFFER): Chronic, not at goal. Discussed healthy, low carbohydrate lifestyle and exercise for 150min/week recommended. Assessment & Plan (11/09/2021 5:39 PM CDT): [...] Encounters Date Type Department Care Team Description 05/17/2025 Results Follow-Up [facility] Primary Care at [address] [phone] Deborah De La Cruz MD Vaginitis panel Vaginal 05/14/2025 2:17 PM TUBE BUFFER - 05/14/2025 11:59 PM TUBE BUFFER Hospital Encounter [address] [address] Vaginal discharge Discharge Disposition: Discharge to home or self care 05/14/2025 1:00 PM TUBE BUFFER Office Visit [facility] Primary Care at [address] [phone] Deborah De La Cruz MD Bipolar 2 disorder (HCC) (Primary Dx); Recurrent major depressive disorder, in partial remission; Anxiety; Hearing loss of right ear, unspecified hearing loss type; Vaginal discharge; Morbid obesity with BMI of 40.0-44.9, adult (HCC) 03/28/2025 Orders Only [facility] Primary Care at [address] [phone] Quin Nunez MD Bipolar 2 disorder (HCC) (Primary Dx) 03/19/2025 Telephone [facility] Residency Clinic at [address] [phone] Quin Nunez MD Referral Request 03/19/2025 Orders Only [facility] Medical [facility] Residency Clinic at [address] [phone] Quin Nunez MD 02/25/2025 Orders Only [facility] Residency Clinic at [address] [place] [phone] Quin Nunez MD Pap smear abnormality of cervix/human papillomavirus (HPV) positive (Primary Dx) 02/21/2025 Telephone [facility] Residency Clinic at [address] [place] [phone] Quin Nunez MD from Last 3 Months Immunizations Immunization Administration [...] points, staff should administer the PHQ-9) 6 05/14/2025 PHQ-9 Answer Date Recorded PHQ-9 Total Score 21 05/14/2025 AUDIT-C Answer Date Recorded Q1: How often do you have a drink containing alcohol? Never 05/14/2025 Q2: How many drinks containi ng alcohol do you have on a typical day when you are drinking? Patient does not drink Q3: How often do you have si x or more drinks on one occasion? Never 05/14/2025 Comments No Sex and Gender Information Value Date Recorded Sex Assigned at Not on file Legal Sex Female 4:06 PM TUBE BUFFER Gender Identity Female 10/20/2021 10:26 PM CDT Sexual Orientation Straight 10/20/2021 10 :26 PM CDT Obstetrics History Para Term AB IAB SAB Ectopic Multiple Livin g Live Births 1 Date Outcome GA Total Labor Labor/2nd/3rd Weight Sex Type Anes PTL Lucía A1 A5 Name Clin Last Filed Vital Signs Vital Sign Reading Time Taken Comments Blood Pressure 130/82 05/14/2025 1:03 PM TUBE BUFFER Pulse 92 05/14/2025 1:03 PM TUBE BUFFER Temperature 36.5 C (97.7 F) 05/14/2025 1:03 PM TUBE BUFFER Respiratory Rate 16 05/14/2025 1:03 PM TUBE BUFFER Oxygen Saturation 96% 05/14/2025 1:03 PM TUBE BUFFER Inhaled Oxygen Concentration - - Weight 139.4 kg (307 lb 6.4 oz) 05/14/2025 1:03 PM TUBE BUFFER Height 177.8 cm (5' 10) 05/14/2025 1:03 PM TUBE BUFFER Body Mass Index 44.11 05/14/2025 1:03 PM TUBE BUFFER Plan of Treatment Health Maintenance Due Date Last Done Comments Pneumococcal vaccine <65 (2 of 2 - PCV) 02/06/2026 11/05/2021 Postponed from 11/05/2022 (Patient declined, but will receive in the future) Cervical Cancer Screening 02/12/2026 02/12/2025, 06/2025 Regular Well Visit/Exam 18-64 02/12/2026 02/12/2025, 02/12/2025, 11/05/2021 Depression Screening 05/14/2026 05/14/2025, 05/14/2025, 02/12/2025, Additional history exists DTaP/Tdap/Td Vaccine (9 - Td or Tdap) 06/05/2033 06/05/2023, 10/26/2021, 10/06/2021, Additional history exists Varicella Vaccines Discontinued 07/27/2013 Hepatitis B Screening Completed 11/28/2020 , [birth year], Additional history exists Hepatitis C Screening Completed 11/28/2020 Influenza Vaccine Discontinued 08/10/2024, , 06/09/2006 HPV Vaccines Discontinued Medical Devices Implanted Type Area Marine Propulsion Technician Device Identifier Shelf Expiration Date Model / Serial / Lot 1.5 Plate Synthes Implanted:Qty: 1 on 09/10/2021 by Gui Chu MD at [facility] Plate Right: Ring Finger Synthes I [id number] 04.130.261 / / [id number] Description:A REQ HAS BEEN E NTERED FOR [employer] ITEM# [id number] TO BE ACTIVATED AT [facility] 09/11/21 COST EA.389.98 8mm Cortex Screw Synthes Implanted:Qty: 1 on 09/10/2021 by Gui Chu MD at [facility] Screw Right: Ring Finger Synthes I C1713 04.214.108 / / [id number] Description:A REQ TO MAKE BJ C ITEM# [id number] ACTIVE IN SCCS ENTERED 09/11/21 COST EA. 41.36 9mm Cortex Screw Synthes Implanted:Qty: 1 on 09/10/2021 by Gui hCu MD at [facility] Screw Right: Ring Finger Synthes I C1713 04.210.109 / N/A / [id number] Description:A REQ TO ASSIGNE D CHARGE CODE ENTERED 09/11/2021 COST EA 137.70 EA DEVICE IND# [id number] 10mm Cortex Screw Synthes Implanted:Qty: 1 on 09/10/2021 by Gui Chu MD at [facility] Screw Right: Ring Finger Synthes I C1713 04.214.110 / / [id number] Description:A REQ TO MAKE BJ C ITEM# [id number] ACTIVE IN SCCS 09/11/2021 COST EA. 41.36 8mm Locking Screw Synthes Implanted:Qty: 2 on 09/10/2021 by Gui Chu MD at [facility] Screw Right: Ring Finger Synthes I C1713 04.130.208 / / [id number] Description:A REQ TO MAKE BJ C ITEM # [id number] ACTIVE IN SCCS HAS BEEN ENTERED 09/11/2021 COST EA 119.34 Synthes 04.130.209 1.5mm 9mm Variable Angle Lock Self Tap Tip Stardrive Hand T4 - [id number] Implanted:Qty: 3 on 09/10/2021 by Gui Chu MD at [facility] Right: Ring Finger Synthes I 04.130.209 / / [id number] Synthes 04.130.210 1.5mm 10mm Variable Angle Lock Self Tap Tip Stardrive Hand T4 - [id number] Implanted:Qty: 1 on 09/10/2021 by Gui Chu MD at [facility] Right: Ring Finger Synthes I C1713 04.130.210 / / [id number] Procedures Procedure Name Priority Date/Time Associated Diagnosis Comments VAGINITIS PANEL Routine 05/14/2025 2:12 PM TUBE BUFFER Vaginal discharge PAP AND HIGH RISK HPV, REFLEX TO GENOTYPING Routine 02/12/2025 8:51 AM CDT Pap smear for cervical cancer screening HEPATITIS PANEL, ACUTE Routine 11/28/2020 1:44 PM CDT Screening for diabetes mellitus from Last 3 Months or Most Recently Relevant to Health Maintenance Results * (ABNORMAL) Vaginitis panel Vaginal (05/14/2025 2:12 PM TUBE BUFFER) Bacterial Vaginosis Not Detected Not Detected Comment:A negative result do es not preclude a possible infection. Results should be considered in conjunction with clinical presentation to determine the disease status. Marilynn group Not Detected Not Detected [facility] Marilynn glabrata/ krusei Detected(A) Not Detected [facility] Comment:Marilynn species can be present as commensal organisms in women; results should be considered in conjunction with clinical presentation to determine the disease status. Trichomonas DNA Not Detected Not Detected [facility] Vaginal 05/14/2025 2:12 PM TUBE BUFFER 05/14/2025 7:13 PM TUBE BUFFER Narrative [facility] - 05/14/2025 8:28 PM TUBE BUFFER The CepClicktivated Xpert Xpress MVP test detects DNA targets [...] this test have been verified by the [facility]. [facility] Nicolette De La Cruz MD LAB MICROBIOLOGY - GENERA L ORDERABLES Final Result BE [address] [facility] Department [place] [address] * (ABNORMAL) Pap and High Risk HPV and Genotyping (Cytology Component) (02/12/2025 8:51 AM CDT) Thin prep (Pap test) 02/12/2025 8:51 AM CDT 02/12/2025 8:51 AM CDT Narrative PATHOLOGY [facility] - 02/21/2025 3:57 PM CDT [facility] Department of Pathology [address] [place] [id number] Final Report with Addendum Note to [...] the details. Patient Name: SHANNAN ROSALES Address: [address] [place] [address] Gender: F : 1995 (Age: 30) Service: Location: Hospital #: [id number] Patient Type: SPECIMEN Taken: 02/12/2025 Received: 02/12/2025 Accessioned:: 02/13/2025 Reported: 02/21/2025 Physician(s): MD Quin Liu MD Diagnosis: SOURCE OF SPECIMEN SCREENING THIN PREP IMAGED PAP w/ HPV: STATEMENT OF ADEQUACY - Satisfactory for evaluation; endocervical/transformation zone component present GENERAL CATEGORIZATION: - Epithelial cell abnormality INTERPRETATION: - Low grade squamous intraepithelial lesion (LSIL) encompassing HPV/mild dysplasia/MELANIE I TOBI Garcia(ASCP)Dustin Schaefer M.D. Report Electronically Reviewed and Signed [...] performed using the beatrice HPV assay ([employer] This test has been modified from the mold loft worker's instructions. Its performance characteristics were determined by [facility] in a manner consistent with CLIA requirements. This test has not been cleared or approved by the U.S. Food and Drug Administration. Test Performed by: [place] [address] Remarketing Manager: Liban Laurent M.D. Ph.D.; CLIA# [id number] TOBI Castellano(ASCP)Report Electronically Reviewed and Signed Out By TOBI Castellano(ASCP) 02/15/2025 13:25:35 Specimen(s) Received: A: SCREENING THIN [...] determined by the Surgical Pathology Department at [facility] as part of an ongoing senior quality control technician program and in compliance with federally mandated [...] characteristics determined by the Surgical Pathology Department [facility]. It has not been cleared or approved by the U. S. Food and Drug Administration. us Quin Nunez MD LAB CYTOLOGY ORDERABLES Fin al Result PATHOLOGY [address] [place] [address] * Hepatitis panel, acute (11/28/2020 1:44 PM CDT) HepBsAg NONREACT NONREACTIVE [facility] Comment: Siemens CentaurXP using SHYANNE (chemiluminescent immunoassay) technology. NONREACTIVE: IgM antibodies to Hepatitis B Surface antigen not detected. REACTIVE: IgM antibodies to Hepatitis B Surface antigen detected. Reactive results will be confirmed by neutralization testing. HBsAb qn 33.80 mIU/mL [facility] Comment: Siemens CentaurXP using SHYANNE (chemiluminescent immunoassay) technology. 9.99 IU/L or less.....NONREACTIVE: IgM antibodies to Hepatitis B Surface antibody are not detected. 10.00 IU/L or greater..REACTIVE: IgM antibodies to Hepatitis B Surface antibody are detected. Hep B core IgM NONREACT NONREACTIVE [facility] Comment: Siemens CentaurXP using SHYANNE (chemiluminescent immunoassay) technology. NONREACTIVE: IgM antibodies to Hepatitis B Core antigen not detected. EQUIVOCAL: IgM antibodies to Hepatitis B Core antigen may or may not be present. Obtain a new specimen and retest. REACTIVE: IgM antibodies to Hepatitis B Core antigen detected. Hep A IgM NONREACT NONREACTIVE [facility] Comment: Siemens CentaurXP using SHYANNE (chemiluminescent immunoassay) technology. NONREACTIVE: IgM antibodies to Hepatitis A not detected. This does not exclude possibility of exposure to Hepatitis A or early acute infection. EQUIVOCAL:IgM antibodies to Hepatitis A may or may not be present. Suggest recollection and retest. REACTIVE: Antibodies to Hepatitis A detected. Hep C Ab NONREACT NONREACTIVE [facility] Comment: Siemens CentaurXP using SHYANNE (chemiluminescent [...] Comment CLI Marguerite JAMES LAB MICROBIOLOGY - GENERA L ORDERABLES Final Result [facility] [address] [place] [address], [facility] [phone] from Last 3 Months or Most Recently Relevant to Health Maintenance Insurance [employer] Care Teams Stemming Machine Operator Relationship Specialty Start Date End Date Deborah De La Cruz MD [address] [place] [address] PCP - General Family Medicine 05/14/25
--- OUTSIDE RECORDS SUMMARY | 2025-05-23 18:02 | XMS_ITS | Clinical Summary ---
Author Organization [facility] [email or web address] Address [address] [place] [address] Care Team Providers Care Rolling Machine Operator Name Role Phone Leland James MD Primary Care Provider [phone] Source Comments [facility] [email or web address],non-owned Affiliates and Associated Physician Practices is amultiple site organization consisting of ambulatory clinics and hospital sitesin [place], [place], [place] and [place]. This disclosure is being madepursuant to the Care Everywhere program and may not contain all information available regarding this patient. Last updated 18.[facility] [email or web address] Allergies Active Allergy Reactions Criticality Noted Date [...] on file Legal Sex Female 5:38 AM GROUND SUPPORT EQUIPMENT MECHANIC Gender Identity Not on file Sexual Orientation Not on file Last Filed Vital Signs Vital Sign Reading Time Taken Comments Blood Pressure 130/81 08/27/2024 1:44 PM GROUND SUPPORT EQUIPMENT MECHANIC Pulse 95 08/27/2024 2:48 PM GROUND SUPPORT EQUIPMENT MECHANIC Temperature 36.8 C (98.3 F) 08/27/2024 2:48 PM GROUND SUPPORT EQUIPMENT MECHANIC Respiratory Rate 16 08/27/2024 2:48 PM GROUND SUPPORT EQUIPMENT MECHANIC Oxygen Saturation 96% 08/27/2024 1:45 PM GROUND SUPPORT EQUIPMENT MECHANIC Inhaled Oxygen Concentration - - Weight - [...] patient's age to complete this topic Insurance [facility] Care Teams Rolling Machine Operator Relationship Specialty Start Date End Date Leland Jamse MD PCP - General 04/30/19
--- OUTSIDE RECORDS SUMMARY | 2025-05-23 18:03 | XMS_ITS | Data Portability ---
Author Organization [facility] Address [address] [place] [address] Care Team Providers Care Regulatory Attorney Name Role Phone VALLESYEIMI Primary Care Provider [phone] Assessment No assessment recorded. Plan of Treatment Reminders Order Date Submit Date Provider Last Modified By Organization Details Last Modified Time Details Appointments PRISCILA MARTINEZ T 60 2024 08:45A M BERTIN LUCERO MD Not available Not available Not available Lab pregna ncy test, urine 2023 024 In-Office Order, Internal Use Only DO Not Attach Compendium DO Not Attach Compendium, Do Not Delete/merge, [id number] 11/30/2023 15:32:23 cultur e, urine 2023 024 [facility], [address] [facility], [facility] [address], [place], [address], 10/13/2023 03:08:34 urinal ysis, comple te 2023 024 [facility], [address] [facility], [address], [place], [address], 10/11/2023 20:09:14 CMP, serum or plasma 2023 024 [facility], [address] [facility], [address], [place], [address], 10/11/2023 20:09:13 hepati tis panel (A+B+C ), acute, serum 2023 024 [facility], [address] [facility], [facility], [place], [address], 10/12/2023 05:09:59 CBC w/ auto diff 2023 024 [facility], [address] [facility], [facility], [place], [address], 10/11/2023 20:09:15 amylas e + lipase , serum 2023 024 [facility], [address] [facility], [facility], [place], [address], 10/12/2023 05:10:00 Referral None record ed. Procedures None record ed. Surgeries None record ed. Imaging XR, foot, 3 or more view 2023 024 [facility] (Radiology), [address] [place], [address], 06/13/2024 08:01:35 XR, should er, 2 or more view [email or web address] [place] [address], [address] [place] [address] [place], [address], 10/01/2022 10:48:25 Medication Orders acyclo vir 400 mg tablet 2023 024 [id number], [address], [place], [place], [id number], 09/12/2023 16:24:04 Singul air 10 mg tablet 2023 024 [facility] #[id number], [address], [place], [place], [id number], 09/12/2023 16:24:05 doxycy pastor monohy drate 100 mg capsul e 2021 022 [facility] #[id number], [address], [place], [place], [id number], 10/11/2023 09:01:55 hydrox yzine HCl 10 mg tablet 2021 022 [email or web address] [facility][id number], [address], [place], [place], [id number], 07/22/2022 12:22:01 Patient TargetsNo targets recorded. Patient Instructions Encounter Date Encounter Id Patient Instructions Last Modified By Organization Details Last Modified Time 06/23/2022 [id number] hidradenitis suppurativa: care instructions Not available 06/23/2022 16:45:52 A healthy lifestyle: care instructions Not available 06/23/2022 16:45:09 When You Want to Lose Weight: Care Instructions Not available 06/23/2022 16:45:09 Continue to take medications as prescribed, do not abruptly stop them. Try walking or deep breathing exercises when feeling anxious. Stress management recommended-posit coby imagery. Increase activity to 30 min a day most days. Call or return if problem persists or worsens. Not available 06/23/2022 16:39:05 follow up in 4 weeks Not available 06/23/2022 16:39:04 07/22/2022 [id number] A healthy lifestyle: care instructions Not available 07/22/2022 12:42:40 learning about mood disorders Not available 07/22/2022 12:42:51 Rest To rest the ankle, you can use crutches and stay off your feet. Ice Apply a cold gel pack, bag of ice, or bag of frozen vegetables on your ankle every 1 to 2 hours, for 15 minutes each time. Put a thin towel between the ice (or other cold object) and your skin. Use the ice (or other cold object) for at least 6 hours after your injury. Some people find it helpful to ice longer, even up to 2 days after their injury. Compression Compression basically means pressure. You want to have your ankle under slight pressure by having it wrapped in an elastic compression bandage. This helps reduce swelling and supports the ankle. Your doctor or nurse will show you how to wrap your ankle. It's important that you do not use too much pressure and cut off the blood flow to your foot. Elevation Elevation means you should keep your foot raised up above the level of your heart. To do this, you can put your foot on some pillows or blankets while you are lying down, or on a table or chair while you are sitting. Not available 07/23/2022 14:04:44 Plan pending imaging results. f/u as needed DWP barriers to care: none Not available 07/23/2022 14:04:48 09/12/2023 [id number] A healthy lifestyle: care instructions Not available 09/12/2023 16:23:57 cold sores: care instructions Not available 09/12/2023 16:23:57 Increase intake of fresh fruits, and vegetables. Avoid packaged foods and fast foods. Follow a low salt diet, drink at least 8-10 8oz glasses of water a day, exercise most days of the week. Take all medications as prescribed. Keep appointments with PCP and all specialists. Not available 09/12/2023 16:24:03 f/u 6 months DWP barriers to care: none Not available 09/12/2023 16:24:00 10/11/2023 [id number] A healthy lifestyle: care instructions Not available 10/11/2023 09:29:11 flank pain: care instructions Not available 10/11/2023 09:18:42 Increase intake of fresh fruits, and vegetables. Avoid packaged foods and fast foods. Follow a low salt diet, drink at least 8-10 8oz glasses of water a day, exercise most days of the week. Take all medications as prescribed. Keep appointments with PCP and all specialists. Not available 10/11/2023 09:22:07 dwp labs needed, plan pending results Not available 10/11/2023 09:22:47 11/30/2023 [id number] secondary amenorrhea: care instructions Not available 11/30/2023 15:30:37 Foot and skin care as discussed. Plan pending xray results. Not available 11/30/2023 15:31:20 follow up as needed Not available 11/30/2023 15:31:04 Reason for Referral None Reported. Results Created Date Observation Date Name Description Value Unit Range Abnormal Flag Note LastModifiedBy Organization Detail LastModifiedTime 06/11/20 22 06/11/2022 CT + NG RNA, PCR, unspe cifie d speci men chlamydia trachomatis, PCR Negati ve text: negati ve Not Available Not Available 04/01/2025 10:34:21 06/11/20 22 06/11/2022 CT + NG RNA, PCR, unspe cifie d speci men neisseria gonorrhoeae, PCR Negati ve text: negati ve Not Available Not Available 04/01/2025 10:34:21 06/11/20 22 06/11/2022 trich omona s vagin gricelda RNA trichomonas vaginalis ribosomal RNA (rrna) Negati ve text: negati ve Not Available Not Available 04/01/2025 10:34:21 06/11/20 22 06/11/2022 Pap test, thinp rep, refle x hr + lr HPV, cervi madalyn Pap, thin prep, HPV neg Not Available Not Available 11:10:43 10/11/19 24 10/11/2023 COMP. METAB OLIC PANEL (14) glucose 85 mg/dL 70-99 Not Available [facility] [address] [place], [address], 10/11/2023 20:09:13 10/11/19 24 10/11/2023 COMP. METAB OLIC PANEL (14) BUN 11 mg/dL 6-20 Not Available [facility] [address] [place], [address], 10/11/2023 20:09:13 10/11/19 24 10/11/2023 COMP. METAB OLIC PANEL (14) creatinine 0.71 mg/dL 0.76-1 .27 below low normal Not Available [facility] [address] [place], [address], 10/11/2023 20:09:13 10/11/19 24 10/11/2023 COMP. METAB OLIC PANEL (14) eGFR 120 >=60 Units for eGFR value s are mL/mi n/1.7 3 The eGFR Calcu latio n has not been valid ated for patie nts under the age of 18. If test resul ts are displ ayed for a patie nt under the age of 18, disre laureano that value . Not Available [facility] [address] [place] [address], [address], 10/11/2023 20:09:13 10/11/19 24 10/11/2023 COMP. METAB OLIC PANEL (14) BUN/creatini ne ratio 16 9-23 Not Available [facility] Department [address] [place] [address], [address], 10/11/2023 20:09:13 10/11/19 24 10/11/2023 COMP. METAB OLIC PANEL (14) sodium 142 mmol/ L 134-14 4 Not Available [facility] [address] [place] [address], [address], 10/11/2023 20:09:13 10/11/19 24 10/11/2023 COMP. METAB OLIC PANEL (14) potassium 4.4 mmol/ L 3.5-5. 2 Not Available [facility] [address] [place] [address], [address], 10/11/2023 20:09:13 10/11/19 24 10/11/2023 COMP. METAB OLIC PANEL (14) chloride 104 mmol/ L 96-106 Not Available [facility] [address] [place] [address], [address], 10/11/2023 20:09:13 10/11/19 24 10/11/2023 COMP. METAB OLIC PANEL (14) carbon dioxide, total 24 mmol/ L 20-29 Not Available [facility] [address] [place] [address], [address], 10/11/2023 20:09:13 10/11/19 24 10/11/2023 COMP. METAB OLIC PANEL (14) calcium 9.5 mg/dL 8.7-10 .2 Not Available [facility] [address] [place], [address], 10/11/2023 20:09:13 10/11/19 24 10/11/2023 COMP. METAB OLIC PANEL (14) protein, total 7.4 g/dL 6.0-8. 5 Not Available [facility] [address] [place], [address], 10/11/2023 20:09:13 10/11/19 24 10/11/2023 COMP. METAB OLIC PANEL (14) albumin 4.3 g/dL 4.0-5. 0 Not Available [facility] [address] [place] [address], [address], 10/11/2023 20:09:13 10/11/19 24 10/11/2023 COMP. METAB OLIC PANEL (14) globulin, total 3.1 g/dL 1.5-4. 5 Not Available [facility] [address] [place], [address], 10/11/2023 20:09:13 10/11/19 24 10/11/2023 COMP. METAB OLIC PANEL (14) A/G ratio 1.4 1.2-2. 2 Not Available [facility] [address] [place] [address], [address], 10/11/2023 20:09:13 10/11/19 24 10/11/2023 COMP. METAB OLIC PANEL (14) bilirubin, total 0.7 mg/dL 0.0-1. 2 Not Available [facility] [address] [place], [address], 10/11/2023 20:09:13 10/11/19 24 10/11/2023 COMP. METAB OLIC PANEL (14) alkaline phosphatase 79 IU/L 44-121 Not Available [facility] Department [address] [place] [address], [address], 10/11/2023 20:09:13 10/11/19 24 10/11/2023 COMP. METAB OLIC PANEL (14) AST (SGOT) 16 IU/L 0-40 Not Available [facility] [address] [place] [address], [address], 10/11/2023 20:09:13 10/11/19 24 10/11/2023 COMP. METAB OLIC PANEL (14) ALT (SGPT) 19 IU/L 0-32 Not Available [facility] [address] [place] [address], [address], 10/11/2023 20:09:13 10/11/19 24 10/11/2023 MICRO SCOPI C EXAMI NATIO N WBC 2-5 Not Available [facility] [address] [place] [address], [address], 10/11/2023 20:09:14 10/11/19 24 10/11/2023 MICRO SCOPI C EXAMI NATIO N RBC Commen t NONE SEEN Not Available [facility] [address] [place] [address], [address], 10/11/2023 20:09:14 10/11/19 24 10/11/2023 MICRO SCOPI C EXAMI NATIO N epithelial cells (non renal) 4+ Not Available [facility] [address] [place] [address], [address], 10/11/2023 20:09:14 10/11/19 24 10/11/2023 MICRO SCOPI C EXAMI NATIO N epithelial cells (renal) FEW Not Available [facility] [address] [place] [address], [address], 10/11/2023 20:09:14 10/11/19 24 10/11/2023 MICRO SCOPI C EXAMI NATIO N cast type Commen t Hyali ne Casts Urine FEW NOT ESTB. N Not Available [facility] [address] [place], [address], 10/11/2023 20:09:14 10/11/19 24 10/11/2023 MICRO SCOPI C EXAMI NATIO N mucus threads 1+ Not Available [facility] [address] [place], [address], 10/11/2023 20:09:14 10/11/19 24 10/11/2023 MICRO SCOPI C EXAMI NATIO N bacteria 2+ abnormal Not Available [facility] Department [address] [place], [address], 10/11/2023 20:09:14 10/11/19 24 10/11/2023 MICRO SCOPI C EXAMI NATIO N comment Commen t Amorp hous Sedim ent Urine 1+ NOT ESTB. N Not Available [facility] [address] [facility], [place], [address], 10/11/2023 20:09:14 10/11/19 24 10/11/2023 URINA LYSIS , COMPL ETE specific gravity 1.025 1.005- 1.030 Not Available [facility] [address] [place], [address], 10/11/2023 20:09:14 10/11/19 24 10/11/2023 URINA LYSIS , COMPL ETE pH 6.5 5.0-7. 0 Not Available [facility] [address] [place], [address], 10/11/2023 20:09:14 10/11/19 24 10/11/2023 URINA LYSIS , COMPL ETE urine-color YELLOW yellow Not Available [facility] [address] [place], [address], 10/11/2023 20:09:14 10/11/19 24 10/11/2023 URINA LYSIS , COMPL ETE appearance CLOUDY abnormal Not Available [facility] Department [address], [place], [address], 10/11/2023 20:09:14 10/11/19 24 10/11/2023 URINA LYSIS , COMPL ETE WBC esterase Commen t NEGAT COBY Not Available [facility] [address], [place], [address], 10/11/2023 20:09:14 10/11/19 24 10/11/2023 URINA LYSIS , COMPL ETE protein Commen t NEGAT COBY Not Available [facility] [address], [place], [address], 10/11/2023 20:09:14 10/11/19 24 10/11/2023 URINA LYSIS , COMPL ETE glucose Commen t NEGAT COBY Not Available [facility] [address] [facility], [place], [address], 10/11/2023 20:09:14 10/11/19 24 10/11/2023 URINA LYSIS , COMPL ETE ketones Commen t NEGAT COBY Not Available [facility] [address] [facility], [place], [address], 10/11/2023 20:09:14 10/11/19 24 10/11/2023 URINA LYSIS , COMPL ETE occult blood Commen t NEGAT COBY Not Available [facility] [address], [place], [address], 10/11/2023 20:09:14 10/11/19 24 10/11/2023 URINA LYSIS , COMPL ETE bilirubin Commen t NEGAT COBY Not Available [facility] [address], [place], [address], 10/11/2023 20:09:14 10/11/19 24 10/11/2023 URINA LYSIS , COMPL ETE urobilinogen ,semi-qn 0.2 eu/dL 0.2-1. 0 Not Available [facility] [address] [place], [address], 10/11/2023 20:09:14 10/11/19 24 10/11/2023 URINA LYSIS , COMPL ETE nitrite, urine Commen t negati ve NEGAT COBY Not Available [facility] [address] [place], [address], 10/11/2023 20:09:14 10/11/19 24 10/11/2023 CBC WITH DIFFE RENTI AL/PL ATELE T WBC 7.0 x10e3 /uL 3.4-10 .8 Not Available [facility] [address] [place], [address], 10/11/2023 20:09:15 10/11/19 24 10/11/2023 CBC WITH DIFFE RENTI AL/PL ATELE T RBC 4.58 x10e6 /uL 3.77-5 .28 Not Available [facility] [address] [place], [address], 10/11/2023 20:09:15 10/11/19 24 10/11/2023 CBC WITH DIFFE RENTI AL/PL ATELE T hemoglobin 14.2 g/dL 11.1-1 5.9 Not Available [facility] [address] [place], [address], 10/11/2023 20:09:15 10/11/19 24 10/11/2023 CBC WITH DIFFE RENTI AL/PL ATELE T hematocrit 43.3 % 34.0-4 6.6 Not Available [facility] [address] [place], [address], 10/11/2023 20:09:15 10/11/19 24 10/11/2023 CBC WITH DIFFE RENTI AL/PL ATELE T MCV 95 fL 79-97 Not Available [facility] [address] [place], [address], 10/11/2023 20:09:15 10/11/19 24 10/11/2023 CBC WITH DIFFE RENTI AL/PL ATELE T MCH 31.0 pg 26.6-3 3.0 Not Available [facility] [address] [place], [address], 10/11/2023 20:09:15 10/11/19 24 10/11/2023 CBC WITH DIFFE RENTI AL/PL ATELE T MCHC 32.8 g/dL 31.5-3 5.7 Not Available [facility] [address] [place], [address], 10/11/2023 20:09:15 10/11/19 24 10/11/2023 CBC WITH DIFFE RENTI AL/PL ATELE T RDW 13.6 % 11.5-1 4.5 Not Available [facility] [address] [place], [address], 10/11/2023 20:09:15 10/11/19 24 10/11/2023 CBC WITH DIFFE RENTI AL/PL ATELE T platelets 362 x10e3 /uL 150-45 0 Not Available [facility] [address] [place], [address], 10/11/2023 20:09:15 10/11/19 24 10/11/2023 CBC WITH DIFFE RENTI AL/PL ATELE T neutrophils 61 % notest b. Not Available [facility] [address] [place], [address], 10/11/2023 20:09:15 10/11/19 24 10/11/2023 CBC WITH DIFFE RENTI AL/PL ATELE T lymphs 24 % notest b. Not Available [facility] [address] [place], [address], 10/11/2023 20:09:15 10/11/19 24 10/11/2023 CBC WITH DIFFE RENTI AL/PL ATELE T monocytes 12 % notest b. Not Available [facility] [address] [place], [address], 10/11/2023 20:09:15 10/11/19 24 10/11/2023 CBC WITH DIFFE RENTI AL/PL ATELE T eos 2 % notest b. Not Available [facility] [address] [place], [address], 10/11/2023 20:09:15 10/11/19 24 10/11/2023 CBC WITH DIFFE RENTI AL/PL ATELE T basos 1 % notest b. Not Available [facility] [address] [place], [address], 10/11/2023 20:09:15 10/11/19 24 10/11/2023 CBC WITH DIFFE RENTI AL/PL ATELE T neutrophils (absolute) 4.2 x10e3 /uL 1.4-7. 0 Not Available [facility] [address] [place], [address], 10/11/2023 20:09:15 10/11/19 24 10/11/2023 CBC WITH DIFFE RENTI AL/PL ATELE T lymphs (absolute) 1.7 x10e3 /uL 0.7-3. 1 Not Available [facility] [address] [place] [address], [address], 10/11/2023 20:09:15 10/11/19 24 10/11/2023 CBC WITH DIFFE RENTI AL/PL ATELE T monocytes(ab solute) 0.8 x10e3 /uL 0.1-0. 9 Not Available [facility] [address] [place], [address], 10/11/2023 20:09:15 10/11/19 24 10/11/2023 CBC WITH DIFFE RENTI AL/PL ATELE T eos (absolute) 0.1 x10e3 /uL 0.0-0. 4 Not Available [facility] [address] [place], [address], 10/11/2023 20:09:15 10/11/19 24 10/11/2023 CBC WITH DIFFE RENTI AL/PL ATELE T baso (absolute) 0.1 x10e3 /uL 0.0-0. 2 Not Available [facility] [address] [place], [address], 10/11/2023 20:09:15 10/11/19 24 10/11/2023 CBC WITH DIFFE RENTI AL/PL ATELE T immature granulocytes 0.6 % notest b. Not Available [facility] [address] [place], [address], 10/11/2023 20:09:15 10/11/19 24 10/11/2023 CBC WITH DIFFE RENTI AL/PL ATELE T immature grans (abs) 0.0 x10e3 /uL 0.0-0. 1 Not Available [facility] [address] [place], [address], 10/11/2023 20:09:15 10/11/19 24 10/11/2023 CBC WITH DIFFE RENTI AL/PL ATELE T NRBC 0 % 0-0 Not Available [facility] [address] [place], [address], 10/11/2023 20:09:15 10/11/19 24 10/12/2023 ACUTE HEPAT ITIS hep A Ab, IgM Negati ve negati ve Not Available [facility] ([facility]) [address] [facility], [place], [address], 10/12/2023 05:09:59 10/11/19 24 10/12/2023 ACUTE HEPAT ITIS HBsAg screen Negati ve negati ve Not Available [facility] ([facility]) [address] [facility], [place], [address], 10/12/2023 05:09:59 10/11/19 24 10/12/2023 ACUTE HEPAT ITIS hep B core Ab, IgM Negati ve negati ve Not Available [facility] ([facility]) [address] [facility], [place], [address], 10/12/2023 05:09:59 10/11/19 24 10/12/2023 ACUTE HEPAT ITIS HCV Ab Non Reacti ve nonrea ctive Not Available [facility] ([facility]) [address] [facility], [place], [address], 10/12/2023 05:09:59 10/11/19 24 10/12/2023 INTER PRETA TION: interpretati on: Commen t Not infec oni with HCV unles s early or acute infec tion is suspe cted (whic h may be delay ed in an immun ocomp romis ed indiv idual ), or other evide nce exist s to indic ate HCV infec tion. Not Available [facility] ([facility]) [address] [facility], [place], [address], 10/12/2023 05:10:00 10/11/19 24 10/12/2023 MARYBETH+L IPASE amylase 39 U/L 31-110 Not Available [facility] ([facility]) [address] [facility], [place], [address], 10/12/2023 05:10:00 10/11/19 24 10/12/2023 MARYBETH+L IPASE lipase 31 U/L 14-72 Not Available [facility] ([facility]) [address] [facility], [place], [address], 10/12/2023 05:10:00 10/11/19 24 10/13/2023 URINE CULTU RE,CO MPREH ENSIV E urine culture,comp rehensive Final report Not Available [facility] ([facility]) [address] [facility], [place], [address], 10/13/2023 03:08:34 10/11/19 24 10/13/2023 URINE CULTU RE,CO MPREH ENSIV E result 1 Commen t Mixed uroge nital zackery 5,000 Colon ies/m L Not Available [facility] ([facility]) [address] [facility], [place], [address], 10/13/2023 03:08:34 11/30/19 24 11/30/2023 pregn chris test, urine HCG negati ve Not Available In-Office Order Internal Use Only DO Not Attach Compendium DO Not Attach Compendium, Do Not Delete/merge, [id number] 11/30/2023 15:17:39 08/08/1908/08/2024 Influ harrison virus A and B and SARS- CoV-2 (COVI D-19) and Respi rator y syncy tial virus RNA panel - Respi rator y syste m speci men by SEVERO with probe detec tion influenza virus A RNA [presence] in upper respiratory specimen by SEVERO with probe detection Negati ve text: negati ve, error FLU A Negat coby Negat coby, Error 08/08 6:36 PM [employer] [facility] Not Available Not Available 10/04/2024 09:14:11 08/08/1908/08/2024 Influ harrison virus A and B and SARS- CoV-2 (COVI D-19) and Respi rator y syncy tial virus RNA panel - Respi rator y syste m speci men by SEVERO with probe detec tion influenza virus B RNA [presence] in upper respiratory specimen by SEVERO with probe detection Negati ve text: negati ve FLU B Negat coby Negat coby 08/08 6:36 PM [employer] [facility] Not Available Not Available 10/04/2024 09:14:11 08/08/1908/08/2024 Influ harrison virus A and B and SARS- CoV-2 (COVI D-19) and Respi rator y syncy tial virus RNA panel - Respi rator y syste m speci men by SEVERO with probe detec tion respiratory syncytial virus RNA [presence] in respiratory system specimen by SEVERO with probe detection Negati ve text: negati ve RESP SYNC VIRUS Negat coby Negat coby 08/08 6:36 PM [facility] Not Available Not Available 10/04/2024 09:14:11 08/08/19 25 08/08/2024 Influ harrison virus A and B and SARS- CoV-2 (COVI D-19) and Respi rator y syncy tial virus RNA panel - Respi rator y syste m speci men by SEVERO with probe detec tion sars-cov-2 (covid-19) N gene [presence] in specimen by SEVERO with probe detection NOT DETECT ED text: (refer ence range for this test IS not detect ed) SARSC OV2 NOT DETEC ONI (Refe rence Range for this test is Not Detec oni) 08/08 6:36 PM [facility] [employer] Not Available Not Available 10/04/2024 09:14:11 08/08/19 25 08/08/2024 Influ harrison virus A and B and SARS- CoV-2 (COVI D-19) and Respi rator y syncy tial virus RNA panel - Respi rator y syste m speci men by SEVERO with probe detec tion interpretati on and review of laboratory results Normal Not Available Not Available 09/2024 09:14:11 08/08/19 25 08/08/2024 CBC W Auto Diffe renti al panel - Blood leukocytes [#/volume] in blood by automated count 10 text: 4.00 - 12.00 10(3)/ mcL WBC 10.00 4.00 - 12.00 10(3) /mcL 08/08 5:59 PM [facility] [employer] [facility] Silith.IOE R LAB Not Available Not Available 10/04/2024 09:14:11 08/08/19 25 08/08/2024 CBC W Auto Diffe renti al panel - Blood erythrocytes [#/volume] in blood by automated count 4.63 text: 3.80 - 5.30 10(6)/ mcL RBC 4.63 3.80 - 5.30 10(6) /mcL 08/08 5:59 PM [facility] Not Available Not Available 10/04/2024 09:14:11 08/08/1908/08/2024 CBC W Auto Diffe renti al panel - Blood hemoglobin [mass/volume ] in blood 14.3 g/dL low: 12g/dL high: 15.8g/ dL HEMOG LOBIN (HGB) 14.3 12.0 - 15.8 g/dL 08/08 5:59 PM [facility] Not Available Not Available 10/04/2024 09:14:11 08/08/1908/08/2024 CBC W Auto Diffe renti al panel - Blood hematocrit [volume fraction] of blood by automated count 42.2 % low: 36%hig h: 47% HEMAT OCRIT (HCT) 42.2 36.0 - 47.0 % 08/08 5:59 PM [facility] Not Available Not Available 10/04/2024 09:14:11 08/08/1908/08/2024 CBC W Auto Diffe renti al panel - Blood MCV [entitic mean volume] in red blood cells by automated count 91.1 fL low: 82fLhi gh: 96fL MCV 91.1 82.0 - 96.0 fL 08/08 5:59 PM [facility] Not Available Not Available 10/04/2024 09:14:11 08/08/1908/08/2024 CBC W Auto Diffe renti al panel - Blood MCH [entitic mass] by automated count 30.9 pg low: 26pghi gh: 34pg MCH 30.9 26.0 - 34.0 pg 08/08 5:59 PM [facility] Not Available Not Available 10/04/2024 09:14:11 08/08/19 25 08/08/2024 CBC W Auto Diffe renti al panel - Blood MCHC [entitic mass/volume] in red blood cells by automated count 33.9 g/dL low: 31g/dL high: 36g/dL MCHC 33.9 31.0 - 36.0 g/dL 08/08 5:59 PM [facility] Not Available Not Available 10/04/2024 09:14:11 08/08/19 25 08/08/2024 CBC W Auto Diffe renti al panel - Blood platelets [#/volume] in blood 421 text: 140 - 440 10(3)/ mcL PLATE LET COUNT 421 140 - 440 10(3) /mcL 08/08 5:59 PM [facility] Not Available Not Available 10/04/2024 09:14:11 08/08/1908/08/2024 CBC W Auto Diffe renti al panel - Blood erythrocyte [distwidth] in red blood cells by automated count 12.7 % low: 11.8%h igh: 15.5% RDW 12.7 11.8 - 15.5 % 08/08 5:59 PM [facility] Not Available Not Available 10/04/2024 09:14:11 08/08/1908/08/2024 CBC W Auto Diffe renti al panel - Blood platelet [entitic mean volume] in blood by automated count 9.4 fL low: 9.7fLh igh: 12.4fL low MPV 9.4 (L) 9.7 - 12.4 fL 08/08 5:59 PM [facility] Not Available Not Available 10/04/2024 09:14:11 08/08/1908/08/2024 CBC W Auto Diffe renti al panel - Blood neutrophils/ leukocytes in blood by automated count 73.7 % low: 47%hig h: 73% high NEUTR OPHIL S 73.7 (H) 47.0 - 73.0 % 08/08 5:59 PM [facility] Not Available Not Available 10/04/2024 09:14:11 08/08/19 25 08/08/2024 CBC W Auto Diffe renti al panel - Blood lymphocytes/ leukocytes in blood by automated count 19.4 % low: 18%hig h: 42% LYMPH OCYTE S 19.4 18.0 - 42.0 % 08/08 5:59 PM [facility] Not Available Not Available 10/04/2024 09:14:11 08/08/19 25 08/08/2024 CBC W Auto Diffe renti al panel - Blood monocytes/le ukocytes in blood by automated count 5.7 % low: 4%high : 12% MONOC YTES 5.7 4.0 - 12.0 % 08/08 5:59 PM [facility] Not Available Not Available 10/04/2024 09:14:11 08/08/1908/08/2024 CBC W Auto Diffe renti al panel - Blood eosinophils/ leukocytes in blood by automated count 0.8 % low: 0%high : 5% EOSIN OPHIL S 0.8 0.0 - 5.0 % 08/08 5:59 PM [facility] Not Available Not Available 10/04/2024 09:14:11 08/08/1908/08/2024 CBC W Auto Diffe renti al panel - Blood basophils/le ukocytes in blood by automated count 0.4 % low: 0%high : 1% BASOP HILS 0.4 0.0 - 1.0 % 08/08 5:59 PM [facility] Not Available Not Available 10/04/2024 09:14:11 08/08/1908/08/2024 CBC W Auto Diffe renti al panel - Blood neutrophils [#/volume] in blood by automated count 7.37 text: 1.60 - 7.70 10(3)/ mcL ABSOL [place] NEUTR OPHIL S 7.37 1.60 - 7.70 10(3) /mcL 08/08 5:59 PM [facility] Not Available Not Available 10/04/2024 09:14:11 08/08/19 25 08/08/2024 CBC W Auto Diffe renti al panel - Blood lymphocytes [#/volume] in blood by automated count 1.94 text: 1.30 - 3.20 10(3)/ mcL ABSOL [place] LYMPH OCYTE S 1.94 1.30 - 3.20 10(3) /mcL 08/08 5:59 PM [facility] Not Available Not Available 10/04/2024 09:14:11 08/08/19 25 08/08/2024 CBC W Auto Diffe renti al panel - Blood monocytes [#/volume] in blood by automated count 0.57 text: 0.20 - 1.00 10(3)/ mcL ABSOL [place] MONOC YTES 0.57 0.20 - 1.00 10(3) /mcL 08/08 5:59 PM [facility] Not Available Not Available 10/04/2024 09:14:11 08/08/1908/08/2024 CBC W Auto Diffe renti al panel - Blood eosinophils [#/volume] in blood by automated count 0.08 text: 0.00 - 0.40 10(3)/ mcL ABSOL [place] EOSIN OPHIL 0.08 0.00 - 0.40 10(3) /mcL 08/08 5:59 PM [facility] Not Available Not Available 10/04/2024 09:14:11 08/08/1908/08/2024 CBC W Auto Diffe renti al panel - Blood basophils [#/volume] in blood by automated count 0.04 text: 0.00 - 0.10 10(3)/ mcL ABSOL [place] BASOP HILS 0.04 0.00 - 0.10 10(3) /mcL 08/08 5:59 PM [facility] Not Available Not Available 10/04/2024 09:14:11 08/08/1908/08/2024 CBC W Auto Diffe renti al panel - Blood nucleated erythrocytes /leukocytes [ratio] in blood 0 NRBC PER 100 WBC 0 08/08 5:59 PM [facility] Not Available Not Available 10/04/2024 09:14:11 08/08/1908/08/2024 CBC W Auto Diffe renti al panel - Blood interpretati on and review of laboratory results Abnorm al Not Available Not Available 09:14:11 08/08/19 25 08/08/2024 Aceta minop hen [Mass /volu me] in Serum or Plasm a acetaminophe n [mass/volume ] in serum or plasma text: 10 - 30 mcg/mL low ACETA MINOP HEN <3 (L) 10 - 30 mcg/m L 08/08 6:27 PM [facility] Not Available Not Available 10/04/2024 09:14:10 08/08/1908/08/2024 Aceta minop hen [Mass /volu me] in Serum or Plasm a interpretati on and review of laboratory results Abnorm al Not Available Not Available 09:14:10 08/08/1908/08/2024 Thyro tropi n [Unit s/vol ume] in Serum or Plasm a thyrotropin [units/volum e] in serum or plasma 0.985 text: 0.300 - 5.000 mIU/L TSH 0.985 0.300 - 5.000 mIU/L 08/08 6:37 PM [facility] [employer] C[facility] R LAB Not Available Not Available 10/04/2024 09:14:10 08/08/1908/08/2024 Thyro tropi n [Unit s/vol ume] in Serum or Plasm a interpretati on and review of laboratory results Normal Not Available Not Available 09/2024 09:14:10 08/08/19 25 08/08/2024 Salic ylate s [Mass /volu me] in Serum or Plasm a salicylates [mass/volume ] in serum or plasma low: 15mg/d Lhigh: 30mg/d L low SALIC YLATE <5.0 (L) 15.0 - 30.0 mg/dL 08/08 6:23 PM [facility] C[facility] R LAB Not Available Not Available 10/04/2024 09:14:10 08/08/19 25 08/08/2024 Salic ylate s [Mass /volu me] in Serum or Plasm a interpretati on and review of laboratory results Abnorm al Not Available Not Available 09:14:10 08/08/19 25 08/08/2024 Magne sium [Mass /volu me] in Serum or Plasm a magnesium [mass/volume ] in serum or plasma 2.1 mg/dL low: 1.6mg/ dLhigh : 2.6mg/ dL MAGNE SIUM 2.1 1.6 - 2.6 mg/dL 08/08 6:23 PM [facility] Not Available Not Available 10/04/2024 09:14:10 08/08/19 25 08/08/2024 Magne sium [Mass /volu me] in Serum or Plasm a interpretati on and review of laboratory results Normal Not Available Not Available 09/2024 09:14:10 08/08/19 25 08/08/2024 Shani ol [Mass /volu me] in Serum or Plasm a ethanol [mass/volume ] in serum or plasma high: 10mg/d L SHANI OL <10 <10 mg/dL 08/08 6:23 PM [facility] Not Available Not Available 10/04/2024 09:14:10 08/08/19 25 08/08/2024 Shani ol [Mass /volu me] in Serum or Plasm a interpretati on and review of laboratory results Normal Not Available Not Available 09/2024 09:14:10 08/08/19 25 08/08/2024 Compr ehens coby metab olic 2000 panel - Serum or Plasm a sodium [moles/volum e] in serum or plasma 140 mmol/ L low: 136mmo l/Lhig h: 145mmo l/L SODIU M 140 136 - 145 mmol/ L 08/08 6:23 PM [facility] Not Available Not Available 10/04/2024 09:14:10 08/08/19 25 08/08/2024 Compr ehens coby metab olic 2000 panel - Serum or Plasm a potassium [moles/volum e] in serum or plasma 4 mmol/ L low: 3.5mmo l/Lhig h: 5.1mmo l/L POTAS SIUM 4.0 3.5 - 5.1 mmol/ L 08/08 6:23 PM [facility] Not Available Not Available 10/04/2024 09:14:10 08/08/1908/08/2024 Compr ehens coby metab olic 1999 panel - Serum or Plasm a chloride [moles/volum e] in serum or plasma 108 mmol/ L low: 98mmol /Lhigh : 107mmo l/L high CHLOR DE 108 (H) 98 - 107 mmol/ L 08/08 6:23 PM [facility] Not Available Not Available 10/04/2024 09:14:10 08/08/1908/08/2024 Compr ehens coby metab olic 1999 panel - Serum or Plasm a carbon dioxide, total [moles/volum e] in serum or plasma 25 mmol/ L low: 22mmol /Lhigh : 30mmol /L CO2, VENOU S 25 22 - 30 mmol/ L 08/08 6:23 PM [facility] Not Available Not Available 10/04/2024 09:14:10 08/08/19 25 08/08/2024 Compr ehens coby metab olic 1999 panel - Serum or Plasm a anion gap in serum or plasma by calculation 11 mmol/ L high: 18mmol /L ANION GAP 11.0 <18.0 mmol/ L 08/08 6:23 PM [facility] Not Available Not Available 10/04/2024 09:14:10 08/08/1908/08/2024 Compr ehens coby metab olic 1999 panel - Serum or Plasm a glucose [mass/volume ] in serum or plasma 92 mg/dL low: 70mg/d Lhigh: 99mg/d L GLUCO SE 92 70 - 99 mg/dL 08/08 6:23 PM [employer] [facility] Silith.IOE R LAB Not Available Not Available 10/04/2024 09:14:10 08/08/19 25 08/08/2024 Compr ehens coby metab olic 1999 panel - Serum or Plasm a urea nitrogen [mass/volume ] in serum or plasma 9 mg/dL low: 5mg/dL high: 18mg/d L BUN 9 5 - 18 mg/dL 08/08 6:23 PM [facility] Silith.IOE R LAB Not Available Not Available 10/04/2024 09:14:10 08/08/19 25 08/08/2024 Compr ehens coby metab olic 2000 panel - Serum or Plasm a creatinine [mass/volume ] in serum or plasma 0.84 mg/dL low: 0.6mg/ dLhigh : 1mg/dL CREAT ININE , BLOOD 0.84 0.60 - 1.00 mg/dL 08/08 6:23 PM [facility] R [facility] Not Available Not Available 10/04/2024 09:14:10 08/08/19 25 08/08/2024 Compr ehens coby metab olic 2000 panel - Serum or Plasm a urea nitrogen/cre atinine [mass ratio] in serum or plasma 11 text: 12 - 20 ratio low BUN/C REATI NINE RATIO 11 (L) 12 - 20 ratio 08/08 6:23 PM [facility] Not Available Not Available 10/04/2024 09:14:10 08/08/19 25 08/08/2024 Compr ehens coby metab olic 2000 panel - Serum or Plasm a protein [mass/volume ] in serum or plasma 8.1 g/dL low: 6g/dLh igh: 8g/dL high TOTAL PROTE IN 8.1 (H) 6.0 - 8.0 g/dL 08/08 6:23 PM [facility] R [facility] Not Available Not Available 10/04/2024 09:14:10 08/08/19 25 08/08/2024 Compr ehens coby metab olic 2000 panel - Serum or Plasm a albumin [mass/volume ] in serum or plasma 4.3 g/dL low: 3.5g/d Lhigh: 5g/dL ALBUM IN 4.3 3.5 - 5.0 g/dL 08/08 6:23 PM [facility] Not Available Not Available 10/04/2024 09:14:10 08/08/19 25 08/08/2024 Compr StormMQens coby metab olic 2000 panel - Serum or Plasm a albumin/glob ulin [mass ratio] in serum or plasma 1.1 low: 1high: 2.2 A/G RATIO 1.1 1.0 - 2.2 08/08 6:23 PM [facility] Not Available Not Available 10/04/2024 09:14:10 08/08/1908/08/2024 Compr StormMQens coby metab olic 2000 panel - Serum or Plasm a calcium [mass/volume ] in serum or plasma 9.4 mg/dL low: 8.7mg/ dLhigh : 10.5mg /dL CALCI UM 9.4 8.7 - 10.5 mg/dL 08/08 6:23 PM [facility] Not Available Not Available 10/04/2024 09:14:10 08/08/1908/08/2024 Compr StormMQens coby metab olic 2000 panel - Serum or Plasm a bilirubin.to jan [mass/volume ] in serum or plasma 1.6 mg/dL low: 0.2mg/ dLhigh : 1.2mg/ dL high T BILI 1.6 (H) 0.2 - 1.2 mg/dL 08/08 6:23 PM [facility] Not Available Not Available 10/04/2024 09:14:10 08/08/1908/08/2024 Compr StormMQens coby metab olic 2000 panel - Serum or Plasm a aspartate aminotransfe rase [enzymatic activity/vol ume] in serum or plasma 22 U/L low: 6U/Lhi gh: 42U/L SGOT (AST) 22 6 - 42 U/L 08/08 6:23 PM [facility] Not Available Not Available 10/04/2024 09:14:10 08/08/19 25 08/08/2024 Compr ehens coby metab olic 2000 panel - Serum or Plasm a alanine aminotransfe rase [enzymatic activity/vol ume] in serum or plasma 22 U/L low: 6U/Lhi gh: 55U/L SGPT (ALT) 22 6 - 55 U/L 08/08 6:23 PM [facility] Not Available Not Available 10/04/2024 09:14:10 08/08/19 25 08/08/2024 Compr ehens coby metab olic 2000 panel - Serum or Plasm a alkaline phosphatase [enzymatic activity/vol ume] in serum or plasma 89 U/L low: 40U/Lh igh: 150U/L ALKAL INE PHOSP HATAS E 89 40 - 150 U/L 08/08 6:23 PM [facility] Kaazing[facility] R LAB Not Available Not Available 10/04/2024 09:14:10 08/08/1908/08/2024 Compr ehens coby metab olic 2000 panel - Serum or Plasm a glomerular filtration rate [volume rate/area] in serum, plasma or blood by creatinine-b ased formula (MDRD)/1.73 sq M among non black population low: 60 GFR, ESTIM ATED >60 >=60 08/08 6:23 PM [facility] [place] LAB Not Available Not Available 10/04/2024 09:14:10 08/08/19 25 08/08/2024 Compr ehens coby metab olic 2000 panel - Serum or Plasm a glomerular filtration rate [volume rate/area] in serum, plasma or blood by creatinine-b ased formula (MDRD)/1.73 sq M among black population low: 60 GFR, EST. AFRIC AN >60 >=60 08/08 6:23 PM [facility] LAB Not Available Not Available 10/04/2024 09:14:10 08/08/19 25 08/08/2024 Compr ehens coby metab olic 2000 panel - Serum or Plasm a glomerular filtration rate [volume rate/area] in serum, plasma or blood by creatinine-b ased formula (MDRD)/1.73 sq M among non black population low: 60 GFR, EST. NONAF RICAN >60 >=60 08/08 6:23 PM [facility] H CENT[facility] R LAB Not Available Not Available 10/04/2024 09:14:10 08/08/1908/08/2024 Compr ehens coby metab olic 2000 panel - Serum or Plasm a interpretati on and review of laboratory results Abnorm al Not Available Not Available 09:14:10 08/08/19 25 08/08/2024 Drugs of abuse panel - Urine by Scree n metho d amphetamine [presence] in urine by screen method NON DETECT ED text: non detect ed UR AMPHE TAMIN E NON DETEC ONI NON DETEC ONI 08/08 6:35 PM [facility] C[facility] R LAB Not Available Not Available 10/04/2024 09:14:10 08/08/19 25 08/08/2024 Drugs of abuse panel - Urine by Scree n metho d benzodiazepi amna [presence] in urine NON DETECT ED text: non detect ed UR BENZO [place] NON DETEC ONI NON DETEC ONI 08/08 6:35 PM [facility] Silith.IOE R LAB Not Available Not Available 10/04/2024 09:14:10 08/08/19 25 08/08/2024 Drugs of abuse panel - Urine by Scree n metho d benzoylecgon ine [presence] in urine NON DETECT ED text: non detect ed UR COCAI NE METAB OLITE NON DETEC ONI NON DETEC ONI 08/08 6:35 PM [facility] R LAB Not Available Not Available 10/04/2024 09:14:10 08/08/19 25 08/08/2024 Drugs of abuse panel - Urine by Scree n metho d opiates [presence] in urine NON DETECT ED text: non detect ed UR OPIAT ES NON DETEC ONI NON DETEC ONI 08/08 6:35 PM [facility] H Silith.IOE R LAB Not Available Not Available 10/04/2024 09:14:10 08/08/19 25 08/08/2024 Drugs of abuse panel - Urine by Gennaro alonzoo kai phencyclidin e [presence] in urine NON DETECT ED text: non detect ed UR PHENC YCLID INE NON DETEC ONI NON DETEC ONI 08/08 6:35 PM [facility] LAB Not Available Not Available 10/04/2024 09:14:10 08/08/19 25 08/08/2024 Drugs of abuse panel - Urine by Gennaro alonzoo kai cannabinoids [presence] in urine DETECT ED text: non detect ed abnormal UR CANNA BINOI D DETEC ONI (A) NON DETEC ONI 08/08 6:35 PM [facility] LAB Not Available Not Available 10/04/2024 09:14:10 08/08/19 25 08/08/2024 Drugs of abuse panel - Urine by Gennaro alonzoo kai barbiturates [presence] in urine NON DETECT ED text: non detect ed UR CYDNEY TURAT E NON DETEC ONI NON DETEC ONI 08/08 6:35 PM [facility] H Silith.IOE R LAB Not Available Not Available 10/04/2024 09:14:10 08/08/19 25 08/08/2024 Drugs of abuse panel - Urine by Gennaro henry metho d ur fentanyl NON DETECT ED text: non detect ed UR FENTA NYL NON DETEC ONI NON DETEC ONI 08/08 6:35 PM [facility] LAB Not Available Not Available 10/04/2024 09:14:10 08/08/19 25 08/08/2024 Drugs of abuse panel - Urine by Racquele carl metho kai interpretati on and review of laboratory results Abnorm al Not Available Not Available 09:14:10 08/27/19 25 08/27/2024 CBC W Auto Diffe renti al panel - Blood leukocytes [#/volume] in blood by automated count 14.6 text: 4.0 - 10.7 x10e9/ L high WBC 14.6 (H) 4.0 - 10.7 x10E9 /L 08/27 3:26 PM [facility] Not [facility] Not Available 10/04/2024 09:13:57 08/27/19 25 08/27/2024 CBC W Auto Diffe renti al panel - Blood erythrocytes [#/volume] in blood by automated count 4.51 text: 3.90 - 5.20 x10e12 /L RBC Count 4.51 3.90 - 5.20 x10E1 2/L 08/27 3:26 PM [facility] Not Available Not Available 10/04/2024 09:13:57 08/27/1908/27/2024 CBC W Auto Diffe jasmineti al panel - Blood hemoglobin [mass/volume ] in blood 13.6 g/dL low: 11.9g/ dLhigh : 15.8g/ dL Hemog lobin 13.6 11.9 - 15.8 g/dL 08/27 3:26 PM [facility] Not Available Not Available 10/04/2024 09:13:57 08/27/1908/27/2024 CBC W Auto Diffe ike al panel - Blood hematocrit [volume fraction] of blood by automated count 40.4 % low: 34.8%h igh: 46.1% Hemat ocrit 40.4 34.8 - 46.1 % 08/27 3:26 PM [facility] Not Available Not Available 10/04/2024 09:13:57 08/27/19 25 08/27/2024 CBC W Auto Diffe renti al panel - Blood MCV [entitic mean volume] in red blood cells by automated count 89.6 fL low: 80fLhi gh: 98fL MCV 89.6 80.0 - 98.0 fL 08/27 3:26 PM [facility] Not Available Not Available 10/04/2024 09:13:57 08/27/19 25 08/27/2024 CBC W Auto Diffe renti al panel - Blood MCH [entitic mass] by automated count 30.2 pg low: 26.7pg high: 33.6pg MCH 30.2 26.7 - 33.6 pg 08/27 3:26 PM [facility] Not Available Not Available 10/04/2024 09:13:57 08/27/1908/27/2024 CBC W Auto Diffe renti al panel - Blood MCHC [entitic mass/volume] in red blood cells by automated count 33.7 g/dL low: 31.7g/ dLhigh : 36.3g/ dL MCHC 33.7 31.7 - 36.3 g/dL 08/27 3:26 PM [facility] Not Available Not Available 10/04/2024 09:13:57 08/27/1908/27/2024 CBC W Auto Diffe renti al panel - Blood erythrocyte [distwidth] in red blood cells by automated count 13.2 % low: 11.3%h igh: 14.8% RDW-C V 13.2 11.3 - 14.8 % 08/27 3:26 PM [facility] Not Available Not Available 10/04/2024 09:13:57 08/27/1908/27/2024 CBC W Auto Diffe renti al panel - Blood platelets [#/volume] in blood by automated count 381 text: 150 - 420 x10e9/ L Plate let Count 381 150 - 420 x10E9 /L 08/27 3:26 PM [facility] Not Available Not Available 10/04/2024 09:13:57 08/27/1908/27/2024 CBC W Auto Diffe renti al panel - Blood platelet [entitic mean volume] in blood by automated count 9.1 fL low: 7.8fLh igh: 11.4fL MPV 9.1 7.8 - 11.4 fL 08/27 3:26 PM [facility] Not Available Not Available 10/04/2024 09:13:57 08/27/1908/27/2024 CBC W Auto Diffe renti al panel - Blood neutrophils/ leukocytes in blood by automated count 82.3 % low: 41%hig h: 74% high Neutr ophil % 82.3 (H) 41.0 - 74.0 % 08/27 3:26 PM [facility] JAN Not Available Not Available 10/04/2024 09:13:57 08/27/19 25 08/27/2024 CBC W Auto Diffe renti al panel - Blood lymphocytes/ leukocytes in blood by automated count 11.7 % low: 17%hig h: 47% low Lymph ocyte % 11.7 (L) 17.0 - 47.0 % 08/27 3:26 PM [facility] Not Available Not Available 10/04/2024 09:13:57 08/27/19 25 08/27/2024 CBC W Auto Diffe renti al panel - Blood monocytes/le ukocytes in blood by automated count 4.4 % low: 3%high : 11% Monoc yte % 4.4 3.0 - 11.0 % 08/27 3:26 PM [facility] Not Available Not Available 10/04/2024 09:13:57 08/27/19 25 08/27/2024 CBC W Auto Diffe renti al panel - Blood eosinophils/ leukocytes in blood by automated count 0.9 % low: 0%high : 7% Eosin ophil % 0.9 0.0 - 7.0 % 08/27 3:26 PM [facility] Not Available Not Available 10/04/2024 09:13:57 08/27/19 25 08/27/2024 CBC W Auto Diffe renti al panel - Blood basophils/le ukocytes in blood by automated count 0.3 % low: 0%high : 1.6% Basop hil % 0.3 0.0 - 1.6 % 08/27 3:26 PM [facility] Not Available Not Available 10/04/2024 09:13:57 08/27/19 25 08/27/2024 CBC W Auto Diffe renti al panel - Blood immature granulocytes /leukocytes in blood by automated count 0.4 % low: 0%high : 1% Immat ure Granu locyt es % 0.4 0.0 - 1.0 % 08/27 3:26 PM [facility] Not Available Not Available 10/04/2024 09:13:57 08/27/19 25 08/27/2024 CBC W Auto Diffe renti al panel - Blood neutrophils [#/volume] in blood by automated count 11.97 text: 1.60 - 7.50 x10e9/ L high Neutr ophil Absol [place] 11.97 (H) 1.60 - 7.50 x10E9 /L 08/27 3:26 PM [facility] Not Available Not Available 10/04/2024 09:13:57 08/27/19 25 08/27/2024 CBC W Auto Diffe renti al panel - Blood lymphocytes [#/volume] in blood by automated count 1.7 text: 1.00 - 4.40 x10e9/ L Lymph ocyte Absol [place] 1.70 1.00 - 4.40 x10E9 /L 08/27 3:26 [facility] Not [facility] Not Available 10/04/2024 09:13:57 08/27/1908/27/2024 CBC W Auto Diffe renti al panel - Blood monocytes [#/volume] in blood by automated count 0.64 text: 0.15 - 1.00 x10e9/ L Monoc yte Absol [place] 0.64 0.15 - 1.00 x10E9 /L 08/27 3:26 PM [facility] Not Available Not Available 10/04/2024 09:13:57 08/27/1908/27/2024 CBC W Auto Diffe renti al panel - Blood eosinophils [#/volume] in blood 0.13 text: 0.00 - 0.60 x10e9/ L Eosin ophil Absol nooksack 0.13 0.00 - 0.60 x10E9 /L 08/27 3:26 PM [facility] Not Available Not Available 10/04/2024 09:13:57 08/27/19 25 08/27/2024 CBC W Auto Diffe renti al panel - Blood basophils [#/volume] in blood by automated count 0.05 text: 0.00 - 0.13 x10e9/ L Basop hil Absol nooksack 0.05 0.00 - 0.13 x10E9 /L 08/27 3:26 PM [facility] Not Available Not Available 10/04/2024 09:13:57 08/27/19 25 08/27/2024 CBC W Auto Diffe renti al panel - Blood interpretati on and review of laboratory results Abnorm al Not Available Not Available 09:13:57 08/27/19 25 08/27/2024 Compr ehens coby metab olic 1999 panel - Serum or Plasm a urea nitrogen [mass/volume ] in serum or plasma 7 mg/dL low: 7mg/dL high: 26mg/d L BUN 7 7 - 26 mg/dL 08/27 3:40 PM [facility] Not Available Not Available 10/04/2024 09:13:57 08/27/1908/27/2024 Compr ehens coby metab olic 1999 panel - Serum or Plasm a creatinine [mass/volume ] in serum or plasma 0.76 mg/dL low: 0.56mg /dLhig h: 0.96mg /dL Creat inine 0.76 0.56 - 0.96 mg/dL 08/27 3:40 PM [facility] Not Available Not Available 10/04/2024 09:13:57 08/27/1908/27/2024 Compr ehens coby metab olic 1999 panel - Serum or Plasm a sodium [moles/volum e] in serum or plasma 140 mmol/ L low: 136mmo l/Lhig h: 145mmo l/L Sodiu m 140 136 - 145 mmol/ L 08/27 3:40 PM [facility] Not Available Not Available 10/04/2024 09:13:57 08/27/19 25 08/27/2024 Compr ehens coby metab olic 2000 panel - Serum or Plasm a potassium [moles/volum e] in serum or plasma 4.1 mmol/ L low: 3.5mmo l/Lhig h: 4.5mmo l/L Potas sium 4.1 3.5 - 4.5 mmol/ L 08/27 3:40 PM [facility] Not Available Not Available 10/04/2024 09:13:57 08/27/19 25 08/27/2024 Compr ehens coby metab olic 1999 panel - Serum or Plasm a chloride [moles/volum e] in serum or plasma 111 mmol/ L low: 98mmol /Lhigh : 107mmo l/L high Chlor de 111 (H) 98 - 107 mmol/ L 08/27 3:40 PM [facility] Not Available Not Available 10/04/2024 09:13:57 08/27/19 25 08/27/2024 Compr ehens coby metab olic 1999 panel - Serum or Plasm a carbon dioxide, total [moles/volum e] in serum or plasma 21 mmol/ L low: 22mmol /Lhigh : 29mmol /L low CO2 21 (L) 22 - 29 mmol/ L 08/27 3:40 PM [facility] Not Available Not Available 10/04/2024 09:13:57 08/27/19 25 08/27/2024 Compr ehens coby metab olic 1999 panel - Serum or Plasm a glucose [mass/volume ] in serum or plasma 93 mg/dL low: 70mg/d Lhigh: 99mg/d L Gluco se 93 70 - 99 mg/dL 08/27 3:40 PM [facility] Not Available Not Available 10/04/2024 09:13:57 08/27/19 25 08/27/2024 Compr ehens coby metab olic 1999 panel - Serum or Plasm a calcium [moles/volum e] in serum or plasma 9.4 mg/dL low: 8.4mg/ dLhigh : 10.2mg /dL Calci um 9.4 8.4 - 10.2 mg/dL 08/27 3:40 PM [facility] Not Available Not Available 10/04/2024 09:13:57 08/27/19 25 08/27/2024 Compr ehens coby metab olic 1999 panel - Serum or Plasm a protein [mass/volume ] in serum or plasma 7.8 g/dL low: 6g/dLh igh: 8.3g/d L Prote in Total 7.8 6.0 - 8.3 g/dL 08/27 3:40 PM [facility] Not Available Not Available 10/04/2024 09:13:57 08/27/19 25 08/27/2024 Compr ens coby metab olic 1999 panel - Serum or Plasm a albumin [mass/volume ] in serum or plasma by bromocresol green (bcg) dye binding method 3.8 g/dL low: 3.4g/d Lhigh: 5g/dL Album in 3.8 3.4 - 5.0 g/dL 08/27 3:40 PM [facility] Not Available Not Available 10/04/2024 09:13:57 08/27/1908/27/2024 Compr ens coby metab olic 2000 panel - Serum or Plasm a bilirubin.to jan [mass/volume ] in serum or plasma 0.9 mg/dL low: 0.2mg/ dLhigh : 1.2mg/ dL Bilir ubin Total 0.9 0.2 - 1.2 mg/dL 08/27 3:40 PM [facility] Not Available Not Available 10/04/2024 09:13:57 08/27/1908/27/2024 Compr ens coby metab olic 2000 panel - Serum or Plasm a alkaline phosphatase [enzymatic activity/vol ume] in serum or plasma 95 U/L low: 40U/Lh igh: 150U/L Alkal ine Phosp hatas e 95 40 - 150 U/L 08/27 3:40 PM [facility] Not Available Not Available 10/04/2024 09:13:57 08/27/19 25 08/27/2024 Compr ehens coby metab olic 1999 panel - Serum or Plasm a alanine aminotransfe rase [enzymatic activity/vol ume] in serum or plasma by no addition of P-5'-P 18 U/L low: 5U/Lhi gh: 55U/L ALT 18 5 - 55 U/L 08/27 3:40 PM [facility] Not Available Not Available 10/04/2024 09:13:57 08/27/19 25 08/27/2024 Compr ehens coby metab olic 1999 panel - Serum or Plasm a aspartate aminotransfe rase [enzymatic activity/vol ume] in serum or plasma 13 U/L low: 5U/Lhi gh: 34U/L AST 13 5 - 34 U/L 08/27 3:40 PM [facility] Not Available Not Available 10/04/2024 09:13:57 08/27/19 25 08/27/2024 Compr ehens coby metab olic 1999 panel - Serum or Plasm a anion gap 8 low: 6high: 16 Anion Gap 8 6 - 16 08/27 3:40 PM [facility] Not Available Not Available 10/04/2024 09:13:57 08/27/19 25 08/27/2024 Compr ehens coby metab olic 2000 panel - Serum or Plasm a urea nitrogen/cre atinine [mass ratio] in serum or plasma 9 low: 7high: 23 BUN/C reati nine Ratio 9 7 - 23 08/27 3:40 PM [facility] Not Available Not Available 10/04/2024 09:13:57 08/27/19 25 08/27/2024 Compr ehens coby metab olic 2000 panel - Serum or Plasm a osmolality calculated 288 text: 275 - 295 mOsm/k g Osmol ality Calcu lated 288 275 - 295 mOsm/ kg 08/27 3:40 PM [facility] Not Available Not Available 10/04/2024 09:13:57 08/27/19 25 08/27/2024 Compr ehens coby metab olic 2000 panel - Serum or Plasm a albumin/glob ulin ratio 1 low: 1.1hig h: 2.3 low Album in/Gl obuli n Ratio 1.0 (L) 1.1 - 2.3 08/27 3:40 PM [facility] Not Available Not Available 10/04/2024 09:13:57 08/27/19 25 08/27/2024 Compr ehens coby metab olic 2000 panel - Serum or Plasm a glomerular filtration rate [volume rate/area] in serum, plasma or blood by creatinine-b ased formula (CKD-epi 2020)/1.73 sq M text: >=90 mL/min /1.73 m2 eGFR by CKD-E PI >90 >=90 mL/mi n/1.7 3 m2 08/27 3:40 PM [facility] Not Available Not Available 10/04/2024 09:13:57 08/27/1908/27/2024 Compr ehens coby metab olic 2000 panel - Serum or Plasm a interpretati on and review of laboratory results Abnorm al Not Available Not Available 09:13:57 08/27/1908/27/2024 Chori ogona dotro pin.b eta subun it [Unit s/vol ume] in Serum or Plasm a choriogonado tropin.intac t+beta subunit [units/volum e] in serum or plasma text: mIU/mL Beta- hCG Total Quant itati ve <3 mIU/m L 08/27 3:48 PM [facility] Not Available Not Available 10/04/2024 09:13:57 08/27/1908/27/2024 Shani ol [Mass /volu me] in Serum or Plasm a ethanol [mass/volume ] in serum or plasma high: 10mg/d L Shani ol (mg/d L) <10 <10 mg/dL 08/27 3:40 PM [facility] Not Available Not Available 10/04/2024 09:13:57 08/27/1908/27/2024 Shani ol [Mass /volu me] in Serum or Plasm a ethanol [mass/volume ] in blood high: 0.01g/ dL Shani ol Calcu lated (g/dL ) <0.01 0 <=0.0 10 g/dL 08/27 3:40 PM [facility] Not Available Not Available 10/04/2024 09:13:57 08/27/19 25 08/27/2024 Shani ol [Mass /volu me] in Serum or Plasm a Unknown Analyte Ethano l Interp <10: None Detect ed. Depres johanna of MACHINE BUILDER: >100 mg/dl Potent ially Critic al: >250 mg/dl Potent ially Fatal >400 mg/dl Ethano l in the patien t's blood will contri bute to the osmola r gap. Ethano l's contri bution to the osmola r gap can be estima oni by dividi ng the concen tratio n of ethano l in mg/dL by 4.6. This test is for clinic al use only and does not equal a DAVID for legal purpos es. Shani ol Inter p <10: None Detec oni. Depre ssion of MACHINE BUILDER: >100 mg/dl Poten tiall y Criti madalyn: >250 mg/dl Poten tiall y Fatal >400 mg/dl Shani ol in the patie nt's blood will contr ibute to the osmol ar gap. Shani ol's contr ibuti on to the osmol ar gap can be estim ated by divid ing the curry ntrat ion of shani ol in mg/dL by 4.6. This test is for clini madalyn use only and does not equal a DAVID for legal purpo ses. Not Available Not Available 10/04/2024 09:13:57 08/27/19 25 08/27/2024 Shani ol [Mass /volu me] in Serum or Plasm a interpretati on and review of laboratory results Normal Not Available Not Available 09/2024 09:13:57 02/14/20 25 02/13/2025 pap, IG Pap smear abnormal Not Available [facility] ([employer]) [id number] , [place], [address], 03/27/2025 12:19:06 Result Notes None recorded. Problems Name Problem SNOMED Code Status Onset Date Resolution Date Notes Provider Name and Address Organization Details Recorded Time Sexually transmitt ed infectiou s disease 9629922 Active Not Available [facility] 2 00:17:48 Bacterial vaginosis 295847069 Completed 09/12/2023 Yeimi Valles APN, [employer] Attn: Accounting ,[address] [facility], [place], [address] , [place] - [facility] 4 16:13:09 Candidal vulvovagi nitis 93849140 Active Not Available [facility] 2 00:17:48 Candidias is of vagina 02841900 Active Not Available [facility] 2 00:17:48 Irregular periods 29873717 Active Not Available [facility] 2 00:17:48 Vaginal discharge 050862363 Completed 07/22/2022 Yeimi Valles APN [employer] Attn: Accounting ,[address] [facility], [place], [address] , [place] 3 12:37:08 Herpes simplex 99066934 Active 2016 Not Available [facility] 2 00:17:48 Asthma 341176746 Active 2017 Not Available [facility] 2 00:17:48 Mild persisten t asthma 756524552 Active 2021 Yeimi Valles APN [employer] Attn: Accounting ,[address] [facility], [place], [address] , [place] [facility] 2 14:33:41 Obesity 718051257 Active 2021 Yeimi Valles APN [employer] Attn: Accounting ,[address] [facility], [place], [address] , [place] 2 14:33:42 Mixed anxiety and depressiv e disorder 121835198 Active 2021 Yeimi Valles APN [employer] Attn: Accounting ,[address] [facility], [place], [address] , [place] 2 14:50:40 Seizure disorder 041396610 Active 2021 Yeimi Valles APN [employer] Attn: Accounting ,[address] [facility], [place], [address] , [place] 2 14:44:10 Hidradeni tis suppurati va 28489310 Active 2021 Yeimi Valles APN, [employer] Attn: Accounting ,[address] [facility], [place], [address] , [facility] 2 16:42:33 Pain of right shoulder joint [id number] 041118 Active 2022 Yeimi Valles APN, [employer] Attn: Accounting ,[address] [facility], [place], [address] , [facility] 3 12:36:17 Problem Notes None recorded. Procedures Surgical History Date Name Laterality Status Provider Name and Address Organization Details Recorded Time 12/24/19 22 Caesarean Section completed Lis Capone [facility] 03/25/2022 14:18:30 01/02/20 21 Cholecystectomy completed Lis Capone [facility] 03/25/2022 14:18:19 07/04/19 03 Tonsillectomy completed Libia Cho [facility] 5 15:59:28 Other completed Sadie Huff [facility] 07/16/2015 10:34:31 Imaging Results None recorded. Procedure Notes None recorded. Medical Equipment None Reported. Allergies Allergen ID Allergen Name Allergen Category Reaction Reaction Severity Criticality Documentation Date Start Date Code Code System Note Provider Name and Address Organization Details Recorded Time 4962 Substance with sulfonami de structure and antibacte rial mechanism of action (substanc e) medicatio n hives Not available Not available 06/05/2014 [id number] SNOMED Natalee sanders, [facility] 4 11:39:38 Medications Name Sig Start Date Stop Date Status Note LastModified by Organization Details LastModified Time Singulair 10 mg tablet Take 1 tablet every day by oral route. 2023 active Not Available Not Available Not Avai lable amoxicillin 500 mg capsule 03/25 completed Not Available Not Available Not Available fluconazole 100 mg tablet 11/01 completed Not Available Not Available Not Available buspirone 5 mg tablet 02/21 completed Not Available Not Available Not Available terconazole 0.4 % vaginal cream 03/25 completed Not Available Not Available Not Available prednisone 10 mg tablet 03/25 completed Not Available Not Available Not Available doxycycline hyclate 100 mg capsule TK 1 C PO D 03/25 completed Not Available Not Available Not Available cefuroxime axetil 250 mg tablet 03/25 completed Not Available Not Available Not Available naproxen 375 mg tablet 10/27 completed Not Available Not Available Not Available nicotine 14 mg/24 hr daily transdermal patch 02/21 completed Not Available Not Available Not Available albuterol sulfate 2.5 mg/3 mL (0.083 %) solution for nebulizatio n Inhale 3 mL 3 times a day by nebulizat ion route as directed for 30 days. active Not Available Not Available No t Available loperamide 2 mg capsule 03/25 completed Not Available Not Available Not Available trazodone 50 mg tablet 10/27 completed Not Available Not Available Not Available azithromyci n 250 mg tablet 09/11 completed Not Available Not Available Not Available Prozac 40 mg capsule Take 1 capsule every day by oral route. active Not Available Not Available No t Available ibuprofen 800 mg tablet 03/25 completed Not Available Not Available Not Available ofloxacin 0.3 % eye drops 09/11 completed Not Available Not Available Not Available fluconazole 150 mg tablet TAKE 1 TABLET BY MOUTH NEEDED DIRECTED ONCE FOR 1 DOSE 11/29 completed Not Available Not Available Not Available ampicillin 500 mg capsule 03/25 completed Not Available Not Available Not Available valacyclovi r 1 gram tablet 09/11 completed Not Available Not Available Not Available hydrocodone 5 mg-acetamin ophen 325 mg tablet TAKE 1 TO 2 TABLETS BY MOUTH EVERY 4 HOURS NEEDED FOR MODERATE OR MORE SEVERE PAIN 03/25 completed Not Available Not Available Not Available fluconazole 200 mg tablet TAKE 1 TABLET BY MOUTH AT END OF ANTIBIOTI CS AND 1 TABLET 72 HOURS LATER 09/11 completed Not Available Not Available Not Available metronidazo le 0.75 % (37.5 mg/5 gram) vaginal gel INSERT 1 APPLICATO RFUL VAGINALLY EVERY DAY AT BEDTIME FOR 5 DAYS 09/11 completed Not Available Not Available Not Available ondansetron HCl 4 mg tablet TAKE 1 TABLET BY MOUTH EVERY 8 HOURS NEEDED FOR NAUSEA 09/11 completed Not Available Not Available Not Available prednisone 20 mg tablet 02/21 completed Not Available Not Available Not Available clonazepam 0.5 mg tablet TAKE 1 TABLET BY MOUTH TWICE DAILY NEEDED 03/25 completed Not Available Not Available Not Available gabapentin 400 mg capsule Take 1 capsule 3 times a day by oral route. 10/27 completed Not Available Not Available Not Available sertraline 100 mg tablet TAKE 1 TABLET BY MOUTH EVERY DAY DIRECTED active Not Available Not Available No t Available penicillin V potassium 500 mg tablet 03/25 completed Not Available Not Available Not Available metronidazo le 500 mg tablet TAKE 1 TABLET BY MOUTH TWICE DAILY FOR 7 DAYS. DO NOT DRINK ALCOHOL ON THIS MEDICATIO N 11/29 completed Not Available Not Available Not Available acetaminoph en 300 mg-codeine 30 mg tablet 03/25 completed Not Available Not Available Not Available acyclovir 400 mg tablet TAKE 1 TABLET BY MOUTH TWICE DAILY active Not Available Not Available No t Available valacyclovi r 500 mg tablet 04/27 completed Not Available Not Available Not Available tramadol 50 mg tablet TAKE 1 TO 2 TABLETS BY MOUTH EVERY 6 HOURS NEEDED FOR MODERATE OR MORE SEVERE PAIN. 09/11 completed Not Available Not Available Not Available triamcinolo ne acetonide 0.1 % topical cream Apply to arms BID x 2-3 weeks, then discontin ue 03/25 completed Not Available Not Available Not Available amoxicillin 500 mg tablet 03/25 completed Not Available Not Available Not Available lamotrigine 25 mg tablet 09/11 completed Not Available Not Available Not Available ketorolac 10 mg tablet TAKE 1 TABLET BY MOUTH EVERY 6 HOURS NEEDED FOR MODERATE TO SEVERE PAIN 11/29 completed Not Available Not Available Not Available amoxicillin 875 mg tablet 03/25 completed Not Available Not Available Not Available clindamycin 1 % topical gel 03/25 completed Not Available Not Available Not Available tamsulosin 0.4 mg capsule 03/25 completed Not Available Not Available Not Available benzoyl peroxide 10 % topical gel apply to inner thighs at bedtime 03/25 completed Not Available Not Available Not Available doxycycline monohydrate 100 mg capsule TAKE 1 CAPSULE BY MOUTH TWICE DAILY FOR 7 DAYS 10/10 completed Not Available Not Available Not Available cephalexin 500 mg capsule TAKE 1 CAPSULE BY MOUTH TWICE DAILY FOR 7 DAYS FOR SKIN INFECTION 09/11 completed Not Available Not Available Not Available nitrofurant oin macrocrysta l 100 mg capsule TK 1 C PO BID 03/25 completed Not Available Not Available Not Available misoprostol 200 mcg tablet 03/25 completed Not Available Not Available Not Available prednisone 50 mg tablet 02/21 completed Not Available Not Available Not Available Advair Diskus 250 mcg-50 mcg/dose powder for inhalation 02/21 completed Not Available Not Available Not Available nicotine 21 mg/24 hr daily transdermal patch APPLY 1 PATCH DAILY 03/25 completed Not Available Not Available Not Available docusate sodium 100 mg capsule 03/25 completed Not Available Not Available Not Available sertraline 25 mg tablet TAKE 1 TABLET BY MOUTH EVERY DAY 09/11 completed Not Available Not Available Not Available buspirone 7.5 mg tablet 02/21 completed Not Available Not Available Not Available mupirocin 2 % topical ointment APPLY A SMALL AMOUNT TO THE BILATERAL INNNER THIGHS BY TOPICAL ROUTE 3 TIMES PER DAY 03/25 completed Not Available Not Available Not Available azelastine 137 mcg (0.1 %) nasal spray 03/25 completed Not Available Not Available Not Available ibuprofen 600 mg tablet 03/25 completed Not Available Not Available Not Available levofloxaci n 500 mg tablet 03/25 completed Not Available Not Available Not Available levofloxaci n 750 mg tablet TAKE 1 TABLET BY MOUTH DAILY FOR 5 DAYS 10/10 completed Not Available Not Available Not Available methylpredn isolone 4 mg tablets in a dose pack 03/25 completed Not Available Not Available Not Available albuterol sulfate HFA 90 mcg/actuati on aerosol inhaler INHALE 2 PUFFS EVERY 4-6 HOURS NEEDED FOR WHEEZING active Not Available Not Available No t Available hydrocortis one 2.5 % topical ointment apply to mouth angles BID x 4 days, stop x 10 days and use Aquaphor, repeat. 07/22 completed Not Available Not Available Not Available hydroxyzine HCl 10 mg tablet Take 1 tablet every 4-6 hours by oral route as needed. 07/22 completed Not Available Not Available Not Available ondansetron 4 mg disintegrat ing tablet DISSOLVE ONE TABLET BY MOUTH EVERY 8 HOURS NEEDED FOR NAUSEA active Not Available Not Available No t Available cefdinir 300 mg capsule TAKE 1 CAPSULE BY MOUTH EVERY 12 HOURS 09/11 completed Not Available Not Available Not Available fluticasone propionate 50 mcg/actuati on nasal spray,suspe nsion [place] 1 spray every day by intranasa l route as directed. active Not Available Not Available No t Available sertraline 50 mg tablet TAKE 1 TABLET BY MOUTH EVERY DAY 09/11 completed Not Available Not Available Not Available dicyclomine 10 mg capsule 03/25 completed Not Available Not Available Not Available naproxen 500 mg tablet 03/25 completed Not Available Not Available Not Available metoclopram de 10 mg tablet 03/25 completed Not Available Not Available Not Available amoxicillin 875 mg-potassiu m clavulanate 125 mg tablet TAKE 1 TABLET BY MOUTH TWICE DAILY 09/11 completed Not Available Not Available Not Available amoxicillin 500 mg-potassiu m clavulanate 125 mg tablet 02/21 completed Not Available Not Available Not Available nicotine 7 mg/24 hr daily transdermal patch 02/21 completed Not Available Not Available Not Available buspirone 15 mg tablet 03/25 completed Not Available Not Available Not Available neomycin-po lymyxin-hyd rocort 3.5 mg-10,000 unit/mL-1 % ear drops,susp INSTILL 1 DROP INTO RIGHT EAR EVERY 3 HOURS WHILE AWAKE 09/11 completed Not Available Not Available Not Available NuvaRing 0.12 mg-0.015 mg/24 hr vaginal Insert 1 vaginal ring every month by vaginal route. 10/27 completed Not Available Not Available Not Available azithromyci n 500 mg tablet 11/29 completed Not Available Not Available Not Available cyclobenzap rine 5 mg tablet 03/25 completed Not Available Not Available Not Available aripiprazol e 5 mg tablet TAKE 1 TABLET BY MOUTH EVERY DAY AT BEDTIME active Not Available Not Available No t Available ciprofloxac in 0.3 %-dexametha sone 0.1 % ear drops,suspe nsion SHAKE LIQUID AND INSTILL 4 DROPS TO AFFECTED EAR TWICE DAILY FOR 7 DAYS 09/11 completed Not Available Not Available Not Available nitrofurant oin monohydrate /macrocryst als 100 mg capsule 03/25 completed Not Available Not Available Not Available Flovent HFA 220 mcg/actuati on aerosol inhaler 02/21 completed Not Available Not Available Not Available aripiprazol e 2 mg tablet TAKE 1 TABLET BY MOUTH EVERY DAY AT BEDTIME 09/11 completed Not Available Not Available Not Available Symbicort 160 mcg-4.5 mcg/actuati on HFA aerosol inhaler INHALE 2 PUFFS BY MOUTH TWICE DAILY active Not Available Not Available No t Available Dulera 200 mcg-5 mcg/actuati on HFA aerosol inhaler Inhale 2 puffs twice a day by inhalatio n route. 10/27 completed Not Available Not Available Not Available Lo Loestrin Fe 1 mg-10 mcg (24)/10 mcg (2) tablet Take 1 tablet every day by oral route. 2013 active Not Available Not Available Not Avai lable Loryna (28) 3 mg-0.02 mg tablet 03/25 completed Not Available Not Available Not Available OneTouch Verio test strips 03/25 completed Not Available Not Available Not Available Aerospan 80 mcg/actuati on HFA aerosol inhaler 02/21 completed Not Available Not Available Not Available Incruse Ellipta 62.5 mcg/actuati on powder for inhalation 11/01 completed Not Available Not Available Not Available OneTouch Verio Flex Meter 03/25 completed Not Available Not Available Not Available fluticasone 113 mcg-salmete rol 14 mcg/actuati on breath activated powdr 03/25 completed Not Available Not Available Not Available OneTouch Delica Plus Lancet 33 gauge 03/25 completed Not Available Not Available Not Available Vitals Date Recorded Body height Body mass index (BMI) Body weight Oxygen saturation Heart rate Respiratory rate Body temperature Systolic And Diastolic Provider Name and Address Organization Details Last Updated DateTime 3 176.53 cm 38.4 kg/m2 955902. 39 g 98 % 100 /min 16 /min 97.5 [degF] 116/80 mm[Hg] Lis Capone [place] [facility] 3 12:25:58 Date Recorded Body height Body mass index (BMI) Body weight Oxygen saturation Heart rate Systolic And Diastolic Provider Name and Address Organization Details Last Updated DateTime 4 176.53 cm 37.3 kg/m2 239271. 65 g 98 % 112 /min 132/92 mm[Hg] LIZ Mills [facility] 4 16:11:58 Date Recorded Body height Body mass index (BMI) Body weight Oxygen saturation Respiratory rate Body temperature Heart rate Systolic And Diastolic Provider Name and Address Organization Details Last Updated DateTime 4 176.53 cm 36.8 kg/m2 127192. 87 g 99 % 16 /min 97.5 [degF] 76 /min 106/62 mm[Hg] LIZ Mills [facility] 4 09:04:15 Date Recorded Body height Body mass index (BMI) Body weight Oxygen saturation Heart rate Respiratory rate Body temperature Systolic And Diastolic Provider Name and Address Organization Details Last Updated DateTime 4 176.53 cm 36.4 kg/m2 007098. 37 g 99 % 91 /min 16 /min 98.1 [degF] 84/53 mm[Hg] Donna Pardo MA [facility] 4 15:09:33 Date Recorded Body height Body mass index (BMI) Body weight Oxygen saturation Heart rate Respiratory rate Body temperature Systolic And Diastolic Provider Name and Address Organization Details Last Updated DateTime 2 176.53 cm 39 kg/m2 730509. 76 g 98 % 80 /min 16 /min 97.7 [degF] 112/72 mm[Hg] Lis Capone [facility] 2 16:30:50 Social History Question Answer Notes LastModified by Organizat ion Details LastModified Time Tobacco Smoking Status Former Smoker quit 04/2021 Lis Capone [facility] 03/25/2022 14:16:11 Do You Have An Advance Directive? No Information not available 02/21/2018 Are You Blind Or Do You Have Difficulty Seeing? No [email or web address] Information not available 03/25/2022 What Is Your Level Of Caffeine Consumption? Moderate Soda, Coffee Information not available 11/30/2023 How Much Tobacco Do You Chew? None Information not available 02/21/2018 In The 14 Days Before Symptom Onset, Have You Had Close Contact With A Laboratory-confir med COVID-19 While That Case Was Ill? No [email or web address] Information not available 03/25/2022 In The 14 Days Before Symptom Onset, Have You Had Close Contact With A Person Who Is Under Investigation For COVID-19 While That Person Was Ill? No Information not available 03/25/2022 Have You Been To An Area Known To Be High Risk For COVID-19? No Information not available 03/25/2022 Are You Deaf Or Do You Have Serious Difficulty Hearing? No 20% Hearing Loss In Right Ear [email or web address] Information not available 03/25/2022 What Type Of Diet Are You Following? REGULAR Information not available 02/21/2018 Which Illicit Or Recreational Drugs Have You Used? Denies Information not available 02/21/2018 Education 12 Information no t available 02/21/2018 Swimming/diving Yes Informati on not available 02/21/2018 Are There Any Guns Present In Your Home? No Information not available 02/21/2018 Hard Of Hearing Or Deaf In One Or Both Ears? No Information not available 02/21/2018 Legally Blind In One Or Both Eyes? No Information no t available 02/21/2018 Live Alone Or With Others? With Others Information not available 02/21/2018 What Was The Date Of Your Most Recent Tobacco Screening? 11/30/2023 Information not available 11/30/2023 How Many Children Do You Have? 1 [email or web address] Information not available 03/25/2022 Do You Use Protection During Sex? No Information not available 02/21/2018 What Is Your Relationship Status? Single [email or web address] Information not available 03/25/2022 Do You Use Your Seat Belt Or Car Seat Routinely? Yes [email or web address] Information not available 03/25/2022 Seat Belts Used Routinely Yes Information not available 02/21/2018 Are You Sexually Active? Yes Information not available 02/21/2018 Smoke Alarm In Home No Information not available 02/21/2018 Do You Have Smoke And Carbon Monoxide Detectors In Your Home? Yes [email or web address] Information not available 03/25/2022 At What Age Did You Start Smoking Tobacco? 17 Information not available 03/25/2022 Are You Passively Exposed To Smoke? Yes Sometimes Information no t available 09/12/2023 How Much Tobacco Do You Smoke? No [email or web address] Information not available 02/21/2018 General Stress Level Low Information not available 02/21/2018 Do You Use Sunscreen Routinely? Yes Information not available 02/21/2018 Has Tobacco Cessation Counseling Been Provided? Yes [email or web address] Information not available 03/25/2022 On What Date Was Tobacco Cessation Counseling Provided? 11/30/2023 Information not available 11/30/2023 How Many Years Have You Smoked Tobacco? 9 [email or web address] Information not available 03/25/2022 How Many Years Have You Used E-cigarettes Or Vape? -1 Information not available 05/28/2022 Sex: Unknown Functional Status Question Answer Note LastModified by Organizat ion Details LastModified Time Do you use any illicit or recreational drugs? Yes [email or web address] Information not available 03/25/2022 Do you or have you ever used any other forms of tobacco or nicotine? Yes Information not available 05/28/2022 What is your level of alcohol consumption? None sober for a 1 year [email or web address] Information not available 03/25/2022 Do you or have you ever used smokeless tobacco? Never used [email or web address] Information not available 05/28/2022 Are you currently employed? No Information not available 11/30/2023 Are you able to care for yourself independently? Yes Information not available 02/21/2018 Do you or have you ever used e-cigarettes or vape? Former user of electronic cigarettes quit 06/2022 [email or web address] Information not available 07/22/2022 What is your exercise level? None Information not available 02/21/2018 Mental Status Question Answer Note LastModified by Organization D etails LastModified Time Do you feel stressed (tense, restless, nervous, or anxious, or unable to sleep at night)? [id number] Information not available 09/12/2023 Family History Relationship Description Onset Age of this Age Resolved Age Notes LastModified by Organization Details LastModified Time Mother Asthma [email or web address] Not availab le 09/15/2015 10:34:37 Father Hypertensive disorder [email or web address] Not available 02/21 10:30:21 Notes:Grandmother's sister o n maternal side had breast cancer Medical History Condition Response Coronary Artery Disease N Other N Atrial Fibrillation N High Blood Pressure N Thyroid Problems N Kidney or Bladder Problems N Depression N COPD N Blood Clots N GI Problems N Skin Problems N Eating Disorder N Anemia N Heart Attack (ME) N Diabetes N Anxiety Disorder Y Muscle, Joint, or Bone Problems N Seizures/Epilepsy Y Acid Reflux (GERD) N Cancer N Stroke N Allergies Y Asthma Y High Cholesterol N Hepatitis N Liver Disease N Headaches N Osteoporosis N Heart Failure N Gynecological History Statement/Question Response Flow Moderate Date of LMP 10/18/2023 STIs/STDs Yes HPV Vaccine Y Duration of Flow (days) 5 Age at Menarche 15 Current Control Method None Age at First Child 26 Sexually Active? Y Menses Monthly Y Date of Last Pap Smear LMP Definite Desired Control Method Other Obstetrics History GPAL:G 2 P 1 0 1 1 Type Value Full Term 1 Spontaneous 1 Living 1 Total 2 Immunizations Vaccine Type Date Status Note Provider Urbano pres[place] and Address Organization Details Recorded Time Hib, unspecified formulation 8 completed Yeimi Valles APN, [employer] WORK[employer]C Attn: Accounting[address] [place], [address], [place] [facility] 04/27/2022 15:24:21 pneumococcal polysaccharide PPV23 2 completed Yeimi Valles APN, [employer] Attn: Accounting[address] [place], [address], [place] [facility] 04/27/2022 15:24:21 Hep B, adolescent or pediatric 7 completed Yeimi Valles APN, [employer] Attn: Accounting[address] [place], [address], [place] [facility] 04/27/2022 15:24:21 OPV, trivalent 7 completed Yeimi Valles, YARDAGE CALLER, [employer] WORK[employer]C Attn: Accounting,[address] [facility], [place], [place], [address] [place] [address], [facility] - [facility] 04/27/2022 15:24:21 DTP 7 completed Yeimi Valles, YARDAGE CALLER, [employer] WORK[employer]C Attn: Accounting,[address] [facility], [place], [place], [address] [place] [address], [place] [facility] 04/27/2022 15:24:21 Hep B, adolescent or pediatric 8 completed Yeimi Valles, YARDAGE CALLER, [employer] WORK[employer]C Attn: Accounting,[address] [facility], [place], [place], [address] [place] [address], [facility] - [facility] 04/27/2022 15:24:21 Tdap 2 completed Yeimi Valles, YARDAGE CALLER, [employer] WORK[employer]C Attn: Accounting,[address] [facility], [place], [place], [address] [place] [address], [facility] - [facility] 04/27/2022 15:24:21 DTP-Hib 7 completed Yeimi Valles, YARDAGE CALLER, [employer] WORKER-C Attn: Accounting,[address] [facility], [place], [place], [address] [place] [address], [facility] - [facility] 04/27/2022 15:24:21 Hep B, adolescent or pediatric 7 completed Yeimi Valles, YARDAGE CALLER, [employer] WORKER-C Attn: Accounting,[address] [facility], [place], [place], [address] [place] [address], [place] [facility] 04/27/2022 15:24:21 MMR 0 completed Yeimi Valles, YARDAGE CALLER, [employer] WORKER-C Attn: Accounting,[address] [facility], [place], [place], [address] [place] [address], [place] [facility] 04/27/2022 15:24:21 Hib, unspecified formulation 7 completed Yeimi Valles, YARDAGE CALLER, [employer] WORK[employer]C Attn: Accounting,[address] [facility], [place], [place], [address] [place] [address], [place] [facility] 04/27/2022 15:24:21 Hep B, adolescent or pediatric 7 completed Yeimi Valles, YARDAGE CALLER, [employer] WORKER-C Attn: Accounting,[address] [facility], [place], [place], [address] [place] [address], [facility] - [facility] 04/27/2022 15:24:21 varicella 4 completed Yeimi Valles, YARDAGE CALLER, [employer] WORKER[employer]C Attn: Accounting,[address] [facility], [place], [place], [address] [place] [address], [facility] - [facility] 04/27/2022 15:24:21 OPV, trivalent 7 completed Yeimi Valles, YARDAGE CALLER, [employer] WORKER-C Attn: Accounting,[address] [facility], [place], [place], [address] [place] [address], [facility] - [facility] 04/27/2022 15:24:21 DTP-Hib 8 completed Yeimi Valles, YARDAGE CALLER, [employer] WORKER-C Attn: Accounting,[address] [facility], [place], [place], [address] [place] [address], [facility] - [facility] 04/27/2022 15:24:21 Tdap 8 completed Yeimi Valles, YARDAGE CALLER, [employer] WORKER-C Attn: Accounting,[address] [facility], [place], [place], [address] [place] [address], [facility] - [facility] 04/27/2022 15:24:21 OPV, trivalent 0 completed Yeimi Valles, YARDAGE CALLER, [employer] WORKER-C Attn: Accounting,[address] [facility], [place], [address] [place] [address], [facility] - [facility] 04/27/2022 15:24:21 influenza, whole 6 completed Yeimi Valles, YARDAGE CALLER, [employer] WORKER-C Attn: Accounting,[address] [facility], [place], [place], [address] [place] [address], [facility] - [facility] 04/27/2022 15:24:21 Tdap 2 completed Yeimi Valles, YARDAGE CALLER, [employer] WORKER-C Attn: Accounting,[address] [facility], [place], [place], [address] [place] [address], [facility] - [facility] 04/27/2022 15:24:21 Influenza, split virus, quadrivalent, PF 4 completed Yeimi Valles YARDAGE CALLER, [employer] WORKER[employer]C Attn: Accounting,[address] [place], [place], [address] [place] [address], [facility] 04/27/2022 15:24:21 MMR 8 completed Yeimi Valles, YARDAGE CALLER, [employer] WORKER-C Attn: Accounting,[address] [place], [address], [facility] - [facility] 04/27/2022 15:24:21 OPV, trivalent 8 completed Yeimi Valles YARDAGE CALLER, [employer] WORKER-C Attn: Accounting,[address] [place], [place], [address] [place] [address], [facility] 04/27/2022 15:24:21 IPV 8 completed Yeimi Valles YARDAGE CALLER, [employer] WORKER-C Attn: Accounting,[address] [place], [address], [facility] 04/27/2022 15:24:21 Tdap 3 completed Yeimi Valles YARDAGE CALLER, [employer] WORKER-C Attn: Accounting,[address] [place], [place], [address] [place] [address], [facility] 09/12/2023 16:15:11 Past Encounters Encounter ID Performer Location Encounter Start Date Encounter Closed Date Diagnosis/Indication Diagnosis SNOMED-CT Code Diagnosis ICD10 Code Diagnosis IMO Codes Diagnosis Note [id number] Bing Dorsey DAMIEN Luis Caraballo ([facility]) [address] [place] [address] 06/10/2014 16:21:13 06/10/2014 17:14:50 Contraception care management 504472015 Candidal vulvovaginitis 66382824 [id number] MD Luis Garcia ([facility]) [address] [place] [address] 07/11/2014 14:58:01 07/11/2014 17:01:00 Vaginal discharge 801179440 [id number] Bing Dorsey DEISY Caraballo ([facility]) [address] [place] [address] 11/28/2014 11:40:29 11/28/2014 14:37:38 Sexually transmitted infectious disease 4907305 [id number] Bing Dorsey [facility] Luis Womens ([facility]) [address] [place] [address] 01/28/2015 09:29:59 01/28/2015 10:11:57 detection examination 92404966 Venereal d isease screening 699585498 [id number] Bing Dorsey [facility] Luis Womenradha ([facility]) [address] [place] [address] 03/05/2015 15:52:24 03/05/2015 17:12:29 Contraception education [id number] Bing Dorsey [facility] Luis Alfradha ([facility]) [address] [place] [address] 07/16/2015 10:15:28 07/16/2015 10:47:34 Venereal disease screening 269303309 Z11.3 Contraception care 44714 5005 Z30.40 [id number] Bing Dorsey [facility] Luis Alfradha ([facility]) [address] [place] [address] 09/15/2015 10:24:21 09/15/2015 13:25:07 Gynecologic examination 87585098 Z01.419 Irregular periods 884654 07 N92.6 [id number] Bing Dorsey [facility] Luis Alfradha ([facility]) [address] [place] [address] 10/27/2016 15:19:31 10/28/2016 10:22:42 Irregular periods 75499965 N92.6 Gynecologi c examination 44680040 Z01.419 High risk sexual behavior 584211955 Z72.51 [id number] Bing Dorsey [facility] Luis Womenradha ([facility]) [address] [place] [address] 11/01/2016 16:47:18 11/04/2016 10:09:31 Herpes simplex 96729205 B00.9 [id number] Silvino Valentino MD [address] [address] 02/21/2018 10:15:38 02/23/2018 09:10:03 Mild intermittent asthma 979494013 J45.20 Stable with current therapy Morbid obesity 158109095 E66.01 BMI=42.6, discussed healthier meal choices and increasing physical activity Depression screening 171 741558 Z13.89 Negative Otitis media 76548460 H6 6.93 reoccurren ce/CHRONIC . Bilateral tubes, likely complicati ng Hidradenit is suppurativa 73577334 L73.2 Chronic. Multiple lesions in bilateral inner thigh. Anxiety 18706680 F41.9 No current treatment/ Remission [id number] MD Daniel Lawrence FP ([facility]) [address] [place] [address] 05/31/2018 10:42:36 05/31/2018 13:12:06 Atopic dermatitis 55128101 L20.9 Hidradenit is suppurativa 31388215 L73.2 [id number] MD Liliane Saha (Adult Med) [address] [place] [address] 03/25/2022 13:57:34 03/30/2022 14:20:33 Adult health examination 854354926 Z00.01 Encouraged routine WELT SLASHER, vision, dental exams, well balanced diet. Obesity 447552946 E66.9 advised low fat, low cholestero l diet, regular exercise and weight reduction. Mild persi stent asthma 492924929 J45.30 cont symbicort, singulair and albuterol inhaler Mixed anxi ety and depressive disorder 657494038 F41.8 mood stable, cont sertraline 100 mg Upper resp iratory infection 68311166 J06.9 dwp to increase fluids, OTC cold med prn, rest, good handwashin gbil ear canal inflamed in places, not more than 30% each, advised pt to call if symptoms worsen [id number] MD Liliane Saha (Adult Med) [address] [place] [address] 04/27/2022 14:23:00 04/28/2022 08:14:21 Mixed anxiety and depressive disorder 085992711 F41.8 mood better but increased anxiety, cont sertraline 100 mg but will also add 25 mg Obesity 023362443 E66.9 advised low fat, low cholestero l diet, regular exercise and weight reduction. Seizure disorder 1553986 02 G40.909 hx of recent seizures, advised no driving or operating heavy machinery, will refer to neuro Tenderness of breast 552 53466 N64.4 only when preg in past, not using protection , will check urine, may be too soon Pain of ri ght shoulder joint 2138859886 2500077 M25.511 pain with lifting, reaching, will defer xray until pt has period, then may call for xray order, also consider PT, heat and ice until she knows [id number] MD Liliane Saha (Adult Med) [address] [place] [address] 05/28/2022 15:37:20 05/31/2022 10:45:14 Mixed anxiety and depressive disorder 794100032 F41.8 mood better but increased anxiety, cont sertraline 100 + 25 mg but will also add another 25 mg for a total of 150 mg Obesity 045923872 E66.9 advised low fat, low cholestero l diet, regular exercise and weight reduction. Electronic cigarette user 540054274 Z72.89 Smoking cessation encouraged . [id number] MD Liliane Saha (Adult Med) [address] [place] [address] 06/23/2022 16:21:56 06/24/2022 09:12:03 Hidradenitis suppurativa 69373439 L73.2 thighs, axillae and breasts, needs meds refilled for outbreaks Obesity 599386411 E66.9 advised low fat, low cholestero l diet, regular exercise and weight reduction. Mixed anxi ety and depressive disorder 425751370 F41.8 mood better; cont sertraline 150mg, still has moments of social anxietydwp adding vistaril 10 mg Electronic cigarette user 810707466 Z72.89 Smoking cessation encouraged . [id number] MD Liliane Saha (Adult Med) [address] [place] [address] 07/22/2022 11:59:15 07/27/2022 13:55:38 Pain of right shoulder joint 7108890045 2053287 M25.511 pain with lifting, reaching, will defer xray until pt has period, then may call for xray order, also consider PT, heat and ice; pt now here for xray order, plan pending reuslts Obesity 009916921 E66.9 advised low fat, low cholestero l diet, regular exercise and weight reduction. Mixed anxi ety and depressive disorder 953986388 F41.8 mood better, less social anxiety.no SI or HI or SH,cont sertraline 150mg, cont prn vistaril 10 mg [id number] MD Liliane Saha (Adult Med) [address] [place] [address] 09/12/2023 15:58:23 09/13/2023 16:41:15 Herpes labialis 4066408 B00.1 dwp suppressio n dosing, will send Obesity 621709490 E66.9 advised low fat, low cholestero l diet, regular exercise and weight reduction. Mixed anxi ety and depressive disorder 201243183 F41.8 mood better,no SI or HI or SHnow getting meds from psychiatry Mild persi stent asthma 869181174 J45.30 cont symbicort, singulair and albuterol inhaler Cannabis dependence 8500 5007 F12.20 dwp avoidance [id number] MD Liliane Saha (Adult Med) [address] [place] [address] 10/11/2023 08:55:18 10/20/2023 21:46:08 Flank pain 931404730 R10.9 bilateral, just finished abx, will get culture Liver enzy mes outside reference range 141584593 R94.5 will check labs Congestion of nasal sinus 53100739 R09.81 clear drainage at present; dwp otc meds Obesity 107246639 E66.9 advised low fat, low cholestero l diet, regular exercise and weight reduction. [id number] MD Liliane Saha (Adult Med) [address] [place] [address] 11/30/2023 14:58:39 11/30/2023 18:44:08 Amenorrhea 74086992 N91.2 control advised, follow up with gyne Swelling o f first metatarsal joint of hallux of right foot 2935255685 042115 M25.474 right hallux nail discolored and partially from nail bed, toe with mild edema, will get xray Contusion of right great toe 7071597559 4191228 S90.211A right hallux nail discolored and partially from nail bednail care advised Health Concerns Section Related Observation LastModified by Organization Detai ls LastModified Time None Recorded Concern Status LastModified by Organization Details LastModified Time None Recorded Advance Directives Directive N: Payers Insurance Date Sequence Insurance Name Policy Number Policy Hdez Covered Member ID Hdez Member ID Guarantor Name 04/01/2025 1 [facility] ON OR AFTER 01/01/21 (MEDICAID REPLACEMENT - HMO) Shannan Morrow [id number] Shannan Morrow 04/01/2025 1 [facility] PRIOR TO 01/01/2021 (MEDICAID REPLACEMENT - HMO) Shannan Morrow [id number] Shannan Morrow 04/01/2025 1 [place] [facility] Shannan Morrow [id number] Shannan Morrow 04/01/2025 1 [facility] PRIOR TO 01/01/2021 (MEDICAID REPLACEMENT - HMO) Shannan Mororw [id number] Shannan Morrow 04/01/2025 1 [place] [facility] Shannan Morrow [id number] Shannan Morrow Notes Date Note Type Note Provider Name and Address Organization Details Recorded Time 06/23/2022 text/html ROS as noted in the HPI pt states she has HS between her thighs, armpits and under breast- wants meds. pt new dose for anxiety is not helping. Saw Neuro today for seizures Weight lo03/25/22: 297#04/27/22: 283#05/28/22: 272 # Anxiety has been high-overwhelming home life-Pt filled out RADHA-7108/24/21: 268 # Yeimi Valles APN, [employer] WORKER-C Attn: Accounting,[address], [place], [address], [place] [facility] 06/23/2022 21:45:26 07/22/2022 text/html ROS as noted in the HPI pain started after having baby- think its from carrying the car seat. states she barely lift arm over head, still not any better mood ok, no SI or HI Yeimi Valles APN, LIVE-C Attn: Accounting, [address] [facility], [place], [address], [facility] - [facility] 07/23/2022 14:05:37 09/12/2023 text/html ROS as noted in the HPI core sore on lip for 2 weeks. Went to in [place] on 09/07/23 and given valACYclovir 1 gram- states it helped some Yeimi Valles APN, FNP-C Attn: Accounting, [address] [facility], [place], [address], [facility] - [facility] 09/12/2023 16:28:23 10/11/2023 text/html ROS as noted in the HPI Pt is still having some kidney pain that radiates into middle of back. finished abx given by ER. pt is concerned about her liver tests. States she tested positive for Hep B 3 months ago. states they found out through a urine sample. Pt has elevated liver enzymes that came back on [facility] blood work. pt woke up this morning with a lot of sinus congestion- did not take otc meds;denies n/v/d Yeimi Valles APN, FNP-C Attn: Accounting, [address] [facility], [place], [address], [facility] - [facility] 10/11/2023 09:30:12 11/30/2023 text/html ROS as noted in the HPI Pt stubbed her right great toe 2 weeks ago might be going into week 3. She thinks she possibly broke it. She states it does hurt to walk and has been walking more on her heel. c/o missed period, late Pt also has acne break out and wants to see if she can maybe get something prescribed to help it. Yeimi Valles APN, FNP-C Attn: Accounting,[address] [facility], [place], [address], [facility] - [facility] 11/30/2023 15:32:31 OBGyn Episode No OBEpisode recorded.
== END 2025-05-23 16:48 | disposition home or self-care (01) ==
PROVIDERS: Emergency Provider Registered Nurse
DX: S46.812A Strain of other muscles, fascia and tendons at shoulder and upper arm level, left arm, initial encounter (principal); X58.XXXA Exposure to other specified factors, initial encounter; J45.909 Unspecified asthma, uncomplicated
CPT/HCPCS: 73030; 99213; G0463

== ENCOUNTER 2025-06-20 12:42 | Emergency (ER) | payer OTHER, SELFPAY ==
[2025-06-20 13:26] LABS: EDUAAPPEAR Cloudy; EDUABILI 1+ (Negative); EDUABLOOD Negative (Negative); EDUACOLOR1 Dark; EDUAGLUCOSE Negative (Negative); EDUAKETONE Negative (Negative); EDUALEUKO Negative (Negative); EDUANITRATE Negative (Negative); EDUAPH 6.0; EDUAPROTEIN Trace (Negative); EDUASPGRAVITY 1.030; EDUAUROBILI 0.2
--- OUTSIDE RECORDS SUMMARY | 2025-06-20 13:31 | XMS_ITS | Clinical Summary ---
Author Organization [facility] Address [address] [place] [address] Care Team Providers Care Decision Unit Rn Name Role Phone Leland James MD Primary Care Provider Source Comments [facility],non-owned Affiliates and Associated Physician Practices is amultiple site organization consisting of ambulatory clinics and hospital sitesin [place], [place] and [place]. This disclosure is being madepursuant to the Care Everywhere program and may not contain all information available regarding this patient. Last updated 18.[facility] Allergies Active Allergy Reactions Criticality Noted Date [...] on file Legal Sex Female 5:38 AM SALES ORDER CLERK Gender Identity Not on file Sexual Orientation Not on file Last Filed Vital Signs Vital Sign Reading Time Taken Comments Blood Pressure 130/81 08/27/2024 1:44 PM SALES ORDER CLERK Pulse 95 08/27/2024 2:48 PM SALES ORDER CLERK Temperature 36.8 C (98.3 F) 08/27/2024 2:48 PM SALES ORDER CLERK Respiratory Rate 16 08/27/2024 2:48 PM SALES ORDER CLERK Oxygen Saturation 96% 08/27/2024 1:45 PM SALES ORDER CLERK Inhaled Oxygen Concentration - - Weight - - Height - - Body Mass Index - - Plan of Treatment Health Maintenance Due Date Last Done Comments HIV SCREENING 01/21/2012 HEPATITIS C SCREENING 01/16/2015 DTAP/TDAP/TD VACCINES (1 - Tdap) 01/21/2016 HEPATITIS B VACCINE (1 of 3 - 19+ 3-dose series) 01/21/2016 HPV VACCINE (1 - 3-dose SCDM series) 01/21/2024 DEPRESSION SCREENING 07/04/2024 COVID-19 VACCINE (1 - 2024-2 6 season) 2025 INFLUENZA VACCINE (#1) 2025 , [...] patient's age to complete this topic Insurance [facility] Care Teams Decision Unit Rn Relationship Specialty Start Date End Date Leland James MD PCP - General 04/30/19
--- OUTSIDE RECORDS SUMMARY | 2025-06-20 13:31 | XMS_ITS | Data Portability ---
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 [id number] [facility] [address],[place] [address] 06/11/2022 14:20:59 06/11/2022 14:56:42 Gynecologic examination 12315292 Z01.419 Take Calcium with Vitamin D 1200mg [...] Dexa Screen na Routine Labs PCPMammo na [id number] FIDEL Reis [place] [address],[place] [address] 10/18/2022 15:13:32 10/18/2022 16:04:38 Contraception care management 655683039 Z30.9 She has not been taking her lamotrigin e as prescribed by neurology, needs to notify neurology of this for directions on restarting and f/u for an appointmen t.We discussed all BC methodsInt [facility]/B/A/SE She has been [...] Condom use encouraged until then. Depressive disorder 5858 9741 F32.A Continue counseling , recommend psychiatry consult - referral sentIf ever thoughts of harming herself or others - need to seek help/911 immediatel ypatient left prior to filling out EPDS Time spent in visit is a total of 30 mins with at least 50% of visit consisting of counseling and review of plan of care. Seizure disorder 0007442 02 G40.909 Health Concerns Section Related Observation LastModified by Organization Detai ls LastModified Time None Recorded Concern Status LastModified by Organization Details LastModified Time None Recorded Advance Directives Directive N: Payers Insurance Date Sequence Insurance Name Policy Number Policy Hdez Covered Member ID Hdez Member ID Guarantor Name 02/11/2025 1 [facility] ON OR AFTER 01/01/21 (MEDICAID REPLACEMENT - HMO) Shannan Morrow [id number] Shannan Morrow 05/14/2024 2 [place] Shannan Morrow [id number] Shannan Morrow Notes Date Note Type Note Provider Name and Address Organization Details Recorded Time 2 text/html ROS as noted in the HPI Pp section, hx HS, 2 very painful abscess on left inner thigh, can't sit, would like them drained, had culture from previous lesion that required PCN product Zaira Peck CNM [address], [place], [address], [facility] 01/08/2022 09:19:13 2 text/html VisitReported by Patient Patient is a 27yo presenting for a 4 week visit. She had a CS for FTP on 12/23 at term weeks GA. Baby Philip was 8-8 Doing well overall. bottlefeeding. Normal lochia. Pain- minimal. Bowel and bladder function normal. [place] score 4 Period-no Annual due: NOV Concerns: none Diane Ernandez MD [address], [place], [address], [facility] 02/13/2022 15:52:48 2 text/html Shannan is a 27yo here for control consult. She has her WWE next month, but is in a new relationship and needs to start BC. THis is first relationship since Philip born. She is unsure what she wants. Didn't do great remembering pills. Diane Ernandez MD [address], [place], [address], [facility] 04/23/2022 18:12:32 2 text/html Annual GYNReported [...] pap smears. FIDEL Sauceda-BC [address], [place], [address], [facility] 06/11/2022 14:56:12 3 text/html 27yopresents for [...] as prescribed. FIDEL Reis [address], [place], [address], [facility] 10/18/2022 15:57:52 OBGyn Episode Ob Episode Information Episode Created Date Number of Fetuses Patient Bloodtype Patient rh Status Prepregnancy Weight lbs Domestic Partner Domestic Partner Phone Father Name Occupational Therapist Assistant Status 05/18/20 21 1 CLOSED Fetus Data First Name Last Name Admitted to NICU Weight (g) Sex Living Outcome Pediatric Complications Fetus ID Race Codes Race Delivery Type , Spontane ous [id number] Boris Calculation Initial Boris Date Initial Exam [...] Domestic Partner Domestic Partner Phone Father Name Occupational Therapist Assistant Status 06/17/20 21 1 A Positive 299 CLOSED Fetus Data First Name Last Name Admitted to NICU Weight (g) Sex Living Outcome Pediatric Complications Fetus ID Race Codes Race Delivery Type Philip 3855.53 2 M true Full Term 88628 Primary Problems Problem Notes 12/17 PIH WNL, PCR 0.22 Problem Name Start Date End Date Resolution Snomed Code Not e COVID-19 07/21/2021 [id number] Baby ASA & Serial Growth Gestational diabetes mellitus 10/26/2021 56538979 Ruled in for GD M after checking BS. testing & BS QID. 2 hr GTT pp Irritable bowel syndrome 06/29/2021 39149684 Pt states hasn' t had issues in long time, now having loose BMs, sometimes diarrhea. Doesn't see GI Asthma in 05/18/2021 [id number] 17874 Marijuana user 05/18/2021 206637979 enco uraged cessation. stopped mid October Depressive disorder 05/27/2021 63188524 zoloft to start 06/17- wants to wean before delivery Maternal obesity complicating , childbirth and the puerperium, antepartum 596887172608 BMI 40+- ante testing at 34w Genital herpes simplex 45209279 valtrex by 36w- HAS SCRIPT ALREADY Under care of hand surgeon 234241095 broke hand punching steering wheel- pins placed. [...] Date Ultra Sound Latest Days Gestation 0 [email or web address] 06/17/2021 12/27/19 22 0 Pre- Flowsheet Flowsheet Date 06/17/2021 Deluna Score Blood Edema Fundus Height Fundus Units Glucose Ketones Leukocytes Nitrite Labor Signs Protein Cervic Dilation Cervic Effacement Cervic Station neg none none trace Type Weight in lbs Pre/Post Dialysis Refused Weight 305.257122296143 BP Diastolic BP Location Tested BP Systolic [...] Weight in lbs Pre/Post Dialysis Refused Weight 304.276462353434 BP Diastolic BP Location Tested BP Systolic [...] Weight in lbs Pre/Post Dialysis Refused Weight 299.7648203623 BP Diastolic BP Location Tested BP Systolic [...] Weight in lbs Pre/Post Dialysis Refused Weight 298.475404151704 BP Diastolic BP Location Tested BP Systolic [...] Weight in lbs Pre/Post Dialysis Refused Weight 298.782922136529 BP Diastolic BP Location Tested BP Systolic [...] Weight in lbs Pre/Post Dialysis Refused Weight 299.1178759701 BP Diastolic BP Location Tested BP Systolic [...] Weight in lbs Pre/Post Dialysis Refused Weight 302.261809370989 BP Diastolic BP Location Tested BP Systolic [...] Weight in lbs Pre/Post Dialysis Refused Weight 300.341841940388 BP Diastolic BP Location Tested BP Systolic [...] Weight in lbs Pre/Post Dialysis Refused Weight 303.192144055745 BP Diastolic BP Location Tested BP Systolic [...] Weight in lbs Pre/Post Dialysis Refused Weight 301.848224685274 BP Diastolic BP Location Tested BP Systolic [...] Weight in lbs Pre/Post Dialysis Refused Weight 297.033730617041 BP Diastolic BP Location Tested BP Systolic [...] Weight in lbs Pre/Post Dialysis Refused Weight 295.338479931885 BP Diastolic BP Location Tested BP Systolic [...] Weight in lbs Pre/Post Dialysis Refused Weight 294.013016824818 BP Diastolic BP Location Tested BP Systolic BP Type 89 132 Fetus Heart Rate Present Fetus Movement A Yes Comments patient is having some cramp ing, contractions, discharge, and nausea. doing well HS outbreak will call out clindamycin, gbs today, cervix closed nst r, gdm diet controlled reviewed sugars Flowsheet Date 12/01/2021 Deluna Score Blood Edema [...] Weight in lbs Pre/Post Dialysis Refused Weight 295.110932106454 BP Diastolic BP Location Tested BP Systolic [...] Weight in lbs Pre/Post Dialysis Refused Weight 298.940752760765 BP Diastolic BP Location Tested BP Systolic [...] Weight in lbs Pre/Post Dialysis Refused Weight 303.827278852368 BP Diastolic BP Location Tested BP Systolic [...] Weight in lbs Pre/Post Dialysis Refused Weight 284.159312024088 BP Diastolic BP Location Tested BP Systolic BP Type 96 159 90 136 Fetus Heart Rate Present Fetus Movement Comments Flowsheet Date 01/06/2022 Deluna Score Blood Edema Fundus Height Fundus Units Glucose Ketones Leukocytes Nitrite Labor Signs Protein Cervic Dilation Cervic Effacement Cervic Station Type Weight in lbs Pre/Post Dialysis Refused Weight 278.821183519006 BP Diastolic BP Location Tested BP Systolic BP Type 82 121 Fetus Heart Rate Present Fetus Movement Comments Flowsheet Date 02/08/2022 Deluna Score Blood Edema Fundus Height Fundus Units Glucose Ketones Leukocytes Nitrite Labor Signs Protein Cervic Dilation Cervic Effacement Cervic Station Type Weight in lbs Pre/Post Dialysis Refused Weight 279.433488501413 BP Diastolic BP Location Tested BP Systolic [...] Estim ated Date of Delivery false Thalassemia (Upper Sorbian, Croatian, Mediterranean, Or Background): MCV < 80 false Neural Tube Defect (Meningomyelocele, Spina Bifi da, Or Anencephaly) false Congenital Heart Defect false Down Syndrome false Juliaon-Sachs (eg, Confucianism, Cajun, Hebrew-Estonian) f alse [place] Disease false Sickle Cell Disease Or Trait () false Hemophilia Or Other Blood Disorders false Muscular Dystrophy false Cystic Fibrosis false Travis's Chorea false Intellectual Disability/Autism false If Yes, [...]
--- OUTSIDE RECORDS SUMMARY | 2025-06-20 13:31 | XMS_ITS | Clinical Summary ---
Author Organization [facility] Address [address] [place] [address] Care Team Providers Care Upholstery Trimmer Name Role Phone Deborah De La Cruz MD Primary Care Provider [phone] Allergies Active Allergy Reactions Criticality Noted Date Comments Sulfa (Sulfonamide Antibiotics) Hives Medium Sulfasalazine Hives Medium 03/04/2016 Medications albuterol (PROVENTIL,VENT SREEKANTH) 2.5 mg /3 mL (0.083 %) nebulizer solution inhale 3 milliliter by nebulization route 4 times every day 0 vial 0 5 Active albuterol HFA (PROVENTIL HFA,VENTOLIN HFA) 90 mcg/actuation inhaler Inhale 2 puffs every 4 (four) hours as needed for wheezing. 1 Inhaler 8 Active nebulizer accessories kitIndications: Asthma, unspecified asthma severity, unspecified whether complicated, unspecified whether persistent Use with nebulizer as directed. 1 kit 1 Active Symbicort 160-4.5 mcg/actuation inhaler Inhale 2 puffs 2 (two) times a day 1 each 3 5 Active valACYclovir (VALTREX) 1 gram tablet Take 1 tablet (1,000 mg total) by mouth as needed 5 Active buPROPion XL (WELLBUTRIN XL) 150 mg 24 hr tabletIndicatio ns:Recurrent major depressive disorder, in partial remission,Anxie ty Take 1 tablet (150 mg total) by mouth every morning 90 tablet Active Active Problems Problem Noted Date Diagnosed Date Anxiety 04/25/2025 Assessment & Plan (05/19/2025 4:58 PM TUBE SPLICER): Chronic, uncontrolled. RADHA-7 score 10 - moderate [...] (09/07/2021): Added automatically from request for surgery [id number] Open displaced fracture of f ourth metacarpal bone of right hand 09/07/2021 Overview (09/10/2021): Added automatically from request for surgery [id number] Polycystic ovary syndrome 05/17/2021 Nicotine use disorder [...] Assessment & Plan (05/19/2025 4:58 PM TUBE SPLICER): Chronic, uncontrolled. PHQ-9 score of 21 - severe Start Bupropion 150 mg daily No HI/SI Follow up in 6-8 weeks Orders: buPROPion XL (WELLBUTRIN XL) 150 mg 24 hr tablet; Take 1 tablet (150 mg total) by mouth every morning Assessment & Plan (11/09/2021 5:58 PM CDT): Not currently following with psychiatry per patient. Per chart review had apt with SIDE PIECE COVERER 03/2021. Was attending therapy regularly and felt it was helpful. Denies any recent mood disturbance, denies SI/HI. Discussed benefits of continuing counseling. Assessment & Plan (11/20/2020 9:28 AM CDT): See above. PTSD (post-traumatic stress disorder) 11/20/2020 Assessment & Plan (11/20/2020 9:29 AM CDT): See above. Bipolar 2 disorder 11/20/2020 Assessment & Plan (05/19/2025 4:58 PM TUBE SPLICER): Chronic, unstable. Patient reports stopping on all medications. Per chart review, in February patient was started on Abilify but stopped taking that as well. She was previously managed at [facility] and in the process of switching psychiatrist. [...] Assessment & Plan (05/19/2025 4:58 PM TUBE SPLICER): Chronic, not at goal. Discussed healthy, low [...] Department Care Team Description 05/17/2025 Results Follow-Up [facility] Primary Care at [address] [address] Deborah De La Cruz MD Vaginitis panel Vaginal 05/14/2025 2:17 PM TUBE SPLICER - 05/14/2025 11:59 PM TUBE SPLICER Hospital Encounter [address] [address] Vaginal discharge Discharge Disposition: Discharge to home or self care 05/14/2025 1:00 PM TUBE SPLICER Office Visit [facility] Primary Care at [address] [address] Deborah De La Cruz MD Bipolar 2 disorder (HCC) (Primary Dx); Recurrent major depressive disorder, in partial remission; Anxiety; Hearing loss of right ear, unspecified hearing loss type; Vaginal discharge; Morbid obesity with BMI of 40.0-44.9, adult (HCC) 03/28/2025 Orders Only [facility] Primary Care at [address] [place] [address] Quin Nunez MD Bipolar 2 disorder (HCC) (Primary Dx) from Last 3 Months Immunizations Immunization Administration [...] 18 y ears old. 2nd one in 2020. Miscarriage 2019 Family History Medical History Relation [...] file Legal Sex Female 4:06 PM TUBE SPLICER Gender Identity Female 10/20/2021 10:26 PM CDT Sexual Orientation Straight 10/20/2021 10 :26 PM CDT Obstetrics History Para Term AB IAB SAB Ectopic Multiple Livin g Live Births 1 Date Outcome GA Total Labor Labor/2nd/3rd Weight Sex Type Anes PTL Lucía A1 A5 Name Clin Last Filed Vital Signs Vital Sign Reading Time Taken Comments Blood Pressure 130/82 05/14/2025 1:03 PM TUBE SPLICER Pulse 92 05/14/2025 1:03 PM TUBE SPLICER Temperature 36.5 C (97.7 F) 05/14/2025 1:03 PM TUBE SPLICER Respiratory Rate 16 05/14/2025 1:03 PM TUBE SPLICER Oxygen Saturation 96% 05/14/2025 1:03 PM TUBE SPLICER Inhaled Oxygen Concentration - - Weight 139.4 kg (307 lb 6.4 oz) 05/14/2025 1:03 PM TUBE SPLICER Height 177.8 cm (5' 10) 05/14/2025 1:03 PM TUBE SPLICER Body Mass Index 44.11 05/14/2025 1:03 PM TUBE SPLICER Plan of Treatment Health Maintenance Due Date [...] Vaccines Discontinued Medical Devices Implanted Type Area Radio Director Device Identifier Shelf Expiration Date Model / Serial / Lot 1.5 Plate Synthes Implanted:Qty: 1 on 09/10/2021 by Gui Chu MD at [facility] Plate Right: Ring Finger Synthes I [id number] 04.130.261 / / [id number] Description:A REQ HAS BEEN E NTERED FOR [employer]JC ITEM# [id number] TO BE ACTIVATED AT [facility] 09/11/21 COST EA.389.98 8mm Cortex Screw Synthes Implanted:Qty: 1 on 09/10/2021 by Gui Chu MD at [facility] Screw Right: Ring Finger Synthes I C1713 04.214.108 / / [id number] Description:A REQ TO MAKE BJ C ITEM# [id number] ACTIVE IN SCCS ENTERED 09/11/21 COST EA. 41.36 9mm Cortex Screw Synthes Implanted:Qty: 1 on 09/10/2021 by Gui Chu MD at [facility] Screw Right: Ring Finger Synthes I C1713 04.210.109 / N/A / [id number] Description:A REQ TO ASSIGNE D CHARGE CODE ENTERED 09/11/2021 COST EA 137.70 EA DEVICE IND# [id number] 10mm Cortex Screw Synthes Implanted:Qty: 1 on 09/10/2021 by Gui Chu MD at [facility] Screw Right: Ring Finger Synthes I C1713 04.214.110 / / [id number] Description:A REQ TO MAKE BJ C ITEM# [id number] ACTIVE IN SCCS 09/11/2021 COST EA. 41.36 8mm Locking Screw Synthes Implanted:Qty: 2 on 09/10/2021 by Gui Chu MD at [facility] Screw Right: Ring Finger Synthes I C1713 04.130.208 / / [id number] Description:A REQ TO MAKE BJ C ITEM # [id number] ACTIVE IN [employer]S HAS BEEN ENTERED 09/11/2021 COST EA 119.34 Synthes 04.130.209 1.5mm 9mm Variable Angle Lock Self Tap Tip [employer]ardrive Hand T4 - [id number] Implanted:Qty: 3 on 09/10/2021 by Gui Chu MD at [facility] Right: Ring Finger Synthes I 04.130.209 / / [id number] Synthes 04.130.210 1.5mm 10mm Variable Angle Lock Self Tap Tip Stardrive Hand T4 - [id number] Implanted:Qty: 1 on 09/10/2021 by Gui Chu MD at [facility] Right: Ring Finger Synthes I C1713 04.130.210 / / [id number] Procedures Procedure Name Priority Date/Time Associated Diagnosis Comments VAGINITIS PANEL Routine 05/14/2025 2:12 PM TUBE SPLICER Vaginal discharge PAP AND HIGH RISK HPV, REFLEX TO GENOTYPING Routine 02/12/2025 8:51 AM CDT Pap smear for cervical cancer screening HEPATITIS PANEL, ACUTE Routine 11/28/2020 1:44 PM CDT Screening for diabetes mellitus from Last 3 Months or Most Recently Relevant to Health Maintenance Results * (ABNORMAL) Vaginitis panel Vaginal (05/14/2025 2:12 PM TUBE SPLICER) Bacterial Vaginosis Not Detected Not Detected Comment:A negative result do es not preclude a possible infection. Results should be considered in conjunction with clinical presentation to determine the disease status. Marilynn group Not Detected Not Detected [facility] Marilynn glabrata/ krusei Detected(A) Not Detected [facility] Comment:Marilynn species can be present as commensal organisms in women; results should be considered in conjunction with clinical presentation to determine the disease status. Trichomonas DNA Not Detected Not Detected [facility] Vaginal 05/14/2025 2:12 PM TUBE SPLICER 05/14/2025 7:13 PM TUBE SPLICER Narrative [facility] - 05/14/2025 8:28 PM TUBE SPLICER [employer] Xpert Xpress MVP test detects DNA targets [...] this test have been verified by the [facility]. [facility] Nicolette De La Cruz MD LAB MICROBIOLOGY - GENERA L ORDERABLES Final Result BE [address] [facility] Department [place] [address] * (ABNORMAL) Pap and High Risk HPV and Genotyping (Cytology Component) (02/12/2025 8:51 AM CDT) Thin prep (Pap test) 02/12/2025 8:51 AM CDT 02/12/2025 8:51 AM CDT Narrative PATHOLOGY CH - 02/21/2025 3:57 PM CDT [facility] Department of Pathology [address] [place] [address] Final Report with Addendum Note to [...] the details. Patient Name: SHANNAN ROSALES Address: [address] [place] [address] Gender: F : 1995 (Age: 30) Service: Location: Hospital #: [id number] Patient Type: SPECIMEN Taken: 02/12/2025 Received: 02/12/2025 Accessioned:: 02/13/2025 Reported: 02/21/2025 Physician(s): MD Quin Liu MD Diagnosis: SOURCE OF SPECIMEN SCREENING THIN PREP IMAGED PAP w/ HPV: STATEMENT OF ADEQUACY - Satisfactory for evaluation; endocervical/transformation zone component present GENERAL CATEGORIZATION: - Epithelial cell abnormality INTERPRETATION: - Low grade squamous intraepithelial lesion (LSIL) encompassing HPV/mild dysplasia/MELANIE I TOBI Garcia(ASCP)Dsutin Schaefer M.D. Report Electronically Reviewed and Signed [...] performed using the beatrice HPV assay ([employer] This test has been modified from the truck engine technician's instructions. Its performance characteristics were determined by [facility] in a manner consistent with CLIA requirements. This test has not been cleared or approved by the U.S. Food and Drug Administration. Test Performed by: [address] [address] Outside Installation Machinist: Liban Laurent M.D. Ph.D.; CLIA# [id number] TOBI Castellano(ASCP)Report Electronically Reviewed and Signed Out [...] determined by the Surgical Pathology Department at [facility] as part of an ongoing ethanol quality leader program and in compliance with federally mandated [...] characteristics determined by the Surgical Pathology Department [facility]. It has not been cleared or approved by the U. S. Food and Drug Administration. us Quin Nunez MD LAB CYTOLOGY ORDERABLES [facility] al Result PATHOLOGY [address] [place] [address] * Hepatitis panel, acute (11/28/2020 1:44 PM CDT) HepBsAg NONREACT NONREACTIVE [facility] Comment: Siemens [employer] using SHYANNE (chemiluminescent immunoassay) technology. NONREACTIVE: IgM antibodies to Hepatitis B Surface antigen not detected. REACTIVE: IgM antibodies to Hepatitis B Surface antigen detected. Reactive results will be confirmed by neutralization testing. HBsAb qn 33.80 mIU/mL [facility] Comment: Siemens CentaurXP using SHYANNE (chemiluminescent immunoassay) [...] antigen detected. Hep A IgM NONREACT NONREACTIVE [facility] Comment: Siemens CentaurXP using SHYANNE (chemiluminescent immunoassay) technology. NONREACTIVE: IgM antibodies to Hepatitis A not detected. This does not exclude possibility of exposure to Hepatitis A or early acute infection. EQUIVOCAL:IgM antibodies to Hepatitis A may or may not be present. Suggest recollection and retest. REACTIVE: Antibodies to Hepatitis A detected. Hep C Ab NONREACT NONREACTIVE [facility] Comment: Siemens CentaurXP using SHYANNE (chemiluminescent immunoassay) [...] PM CDT Narrative Resulting Agency Comment CLI us Marguerite JAMES LAB MICROBIOLOGY - GENERA L ORDERABLES Final Result [facility] [address] [place] [address] from Last 3 Months or Most Recently Relevant to Health Maintenance Insurance [facility] Care Teams Upholstery Trimmer Relationship Specialty Start Date End Date Deborah De La Cruz MD [address] [facility] [address] [place] [address] PCP - General Family Medicine 05/14/25
--- OUTSIDE RECORDS SUMMARY | 2025-06-20 13:31 | XMS_ITS | Encounter Summary ---
Author Organization [facility] Address [address] [place] [address] Phone Care Team Providers Care Animal Handler Name Role Phone NuñezRyderYeimistefan LAWTON CNP Primary Care Provider [phone] Encounter Details Date Type Department Care Team (Late st Contact Info) Description 03/14/2023 Behavioral Health Patient Survey [facility] [address] [place] [address] Ana Leary, [facility] [address] [place] [address] Social History Tobacco Use Types Packs/Day Years Used Date Smoking Tobacco: Former Cigarettes 0.5 Q uit: 12/05/2016 Cigars Smokeless Tobacco: Never [...] Ready to change Department associated with goal: [facility] Steps to achieve goal: [...] Ready to change Department associated with goal: [facility] Steps to achieve goal: [...] - 19 06/24/2024 06/24/2024 06/24/2024 7:50 PM RESPIRATORY MEDICINE PHYSICIAN Assessment Noted Time PHQ-9 Depression Total Score: 4 02/27/20 21 10:00 AM CDT documented as of this encounter Care Teams Animal Handler Relationship Specialty Start Date End Date Yeimi Nuñez APRN, GERMAIN PCP - General Family Medicine 05/19/22 documented as of this encounter
--- OUTSIDE RECORDS SUMMARY | 2025-06-20 13:31 | XMS_ITS | Clinical Summary ---
Author Organization [facility] Address [address] [place] [address] Phone Care Team Providers Care Clinical Staff Rn Name Role Phone Yeimi Nuñez APRN, CNP Primary Care Provider [phone] Allergies Active Allergy Reactions Criticality Noted Date [...] mouth daily. Active neomycin-polymyx in-hydrocortison e (CORTISPORIN) 3.5-75965-[address] 3 Drops in right ear [...] (04/01/2021): Diagnosed at 19 or 20 by [facility]. No evidence reported or observed Social [...] Health Maintenance Due Date Last Done Comments Varicella Immunization (2 of 2 - 13+ 2-dose series) 08/24/2013 07/27/2013 Pap Smear 2018 Pneumococcal Immunization Combined (2 of 2 - PCV) 11/05/2022 11/05/2021 Influenza Immunization (#1) 2025 08/10/2024, 0 07/27/2013 SARS-COV-2 Immunization (1 - 2024- season) 2025 DTaP/Tdap/Td Immunization (8 - Td or Tdap) 06/05/2033 06/05/2023, 10/26/2021, 10/06/2021, Additional history exists Respiratory Syncytial Virus (RSV) Immunization (Adult) (1 - 1-dose 75+ series) 01/21/2072 Hepatitis B Immunization Completed 998, 1997, 1997, Additional history exists Hepatitis C Virus (HCV) Screening Completed 06/05/2021 Human Papillomavirus (HPV) Immunization (No Doses Required) Completed Meningococcal Immunization (ACWY) Aged Out No longer [...] Ready to change Department associated with goal: [facility] Steps to [...] Ready to change Department associated with goal: [facility] Steps to [...] measures to stabilize the patient. Care Teams Clinical Staff Rn Relationship Specialty Start Date End Date Nuñez, Yeimi, PLASTIC MACHINE OPERATOR, GERMAIN PCP - General Family Medicine 05/19/22
--- OUTSIDE RECORDS SUMMARY | 2025-06-20 13:33 | XMS_ITS | Data Portability ---
Author Organization [place] [facility], Main Office Address [address] [place] [address] Care Team Providers Care Boot And Saddle Repair Person Name Role Phone PANCHITO BUSTAMANTE Referring Provider GOLDIE VALLES Primary Care Provider Assessment No assessment recorded. Plan of Treatment Reminders Order Date Submit Date Provider Last Modified By Organization Details Last Modified Time Details Appointments None recorded. Lab None recorded. Referral None recorded. Procedures None recorded. Surgeries None recorded. Imaging None recorded. Medication Orders Ciprodex 0.3 %-0.1 % ear drops,susp ension 2022 023 [facility] [employer] [facility][id number], [address], [place], [id number], 3 12:12:18 cefdinir 300 mg capsule 2022 023 [facility] [employer] [facility][id number], [address], [place], [id number], 3 12:12:17 Patient TargetsNo targets recorded. Patient InstructionsNo instructions recorded. Reason for Referral None Reported. Results Created Date Observation Date Name Description Value Unit Range Abnormal Flag Note LastModifiedBy Organization Detail LastModifiedTime 03/16/20 22 03/16/2022 SARS- COV-2 RNA(C OVID1 9),RT -PCR sars-cov-2 RNA(covid19) ,RT-PCR negati ve This test has been autho rized by the FDA under an Emerg ency Use Autho rizat ion (EUA) for use by autho rized labor atori es. Negat clair resul ts do not precl ude SARS- CoV-2 and shoul d not be used as the sole basis for treat ment or other patie nt manag ement decis ions. Test resul ts shoul d be corre lated with the clini madalyn histo ry, megan fox gical data, and other data avail able to the clini andressa evalu ating the patie nt. Danita alvares w the Fact Sheet s for healt h care provi ders and patie nts at the [facility] manish: https ://ww Mix[employer].Neocleus .gov/ media /1363 12/do wnloa d https ://Crazidea.Neocleus .gov/ media /1363 13/do wnloa d https ://DevelopIntelligence .gov/ media /1421 92/do wnloa d https ://DevelopIntelligence .gov/ media /1421 91/do wnloa d Metho dolog y: Real- Time RT-PC R Not Available [facility] (Lab) [address] [place], [address], 03/16/2022 15:11:11 03/17/20 22 03/17/2022 URINE HCG QUAL/ POINT OF CARE ur preg negati ve TESTI NG PERFO RMED BY SURGI MADALYN GEORGE PERSO NNEL. Not Available [facility] (Lab) [address] [place], [address], 03/17/2022 11:34:44 03/17/20 22 03/17/2022 URINE HCG QUAL/ POINT OF CARE lot no. [id number] Not Available [facility] (Lab) [address] [place], [address], 03/17/2022 11:34:44 03/17/20 22 03/17/2022 URINE HCG QUAL/ POINT OF CARE pos QC positi ve Not Available [facility] (Lab) [address] [place], [address], 03/17/2022 11:34:44 03/17/20 22 03/17/2022 URINE HCG QUAL/ POINT OF CARE neg QC negati ve Not Available [facility] (Lab) [address] [facility], [place], [address], 03/17/2022 11:34:44 06/29/20 21 06/29/2021 audio gram + tympa nogra m No observ ation record ed. [id number] [facility] (Audiology) [address], [place], [address], 09/01/2022 18:54:15 Result Notes None recorded. Problems Name Problem SNOMED Code Status Onset Date Resolution Date Notes Provider Name and Address Organization Details Recorded Time Dysfunctio n of bilateral eustachian tubes 3740607191463 100 Active 2021 Not Available [facility] 3 18:53:04 Acute suppurativ e otitis media without spontaneou s rupture of ear drum 67927852 Active 2022 Sami Calderón MD [address] [facility], [facility] [address], [place], [address] , [facility] [employer] 12:11:57 Problem Notes None recorded. Procedures Surgical History Date Name Laterality Status Provider Name and Address Organization Details Recorded Time Ear Tubes completed Not Available [facility] 0 09/01/2022 18:52:33 tonsilectomy /adenoids completed Not Available [facility] 09/01/2022 18:52:33 Imaging Results None recorded. Procedure Notes None recorded. Medical Equipment None Reported. Allergies Allergen ID Allergen Name Allergen Category Reaction Reaction Severity Criticality Documentation Date Start Date Code Code System Note Provider Name and Address Organization Details Recorded Time 95581 Substance with sulfonami de structure and antibacte rial mechanism of action (substanc e) medicatio n Not available Not available Not available 09/01/2022 41676 8003 SNOMED Not Available [facility] 3 18:54:13 Medications Name Sig Start Date Stop Date Status Note LastModified by Organization Details LastModified Time fluconazole 100 mg tablet 04/20 completed Not Available Not Available Not Available buspirone 5 mg tablet TK 1 T PO BID 04/20 completed Not Available Not Available Not Available cefuroxime axetil 250 mg tablet Take 1 tablet every 12 hours by oral route. 05/12 completed Not Available Not Available Not Available naproxen 375 mg tablet TK 1 T PO BID WF 12/14 completed Not Available Not Available Not Available nicotine 14 mg/24 hr daily transdermal patch 12/14 completed Not Available Not Available Not Available albuterol sulfate 2.5 mg/3 mL (0.083 %) solution for nebulizatio n INL ONE VIAL VIA NEBULIZER QID PRN active Not Available Not Available No t Available trazodone 50 mg tablet TK 1 AND 07/05 TS PO HS 12/14 completed Not Available Not Available Not Available ofloxacin 0.3 % eye drops active Not Available Not Available Not Available fluconazole 150 mg tablet TK 1 T PO ONCE active Not Available Not Available No t Available ampicillin 500 mg capsule 02/24 completed Not Available Not Available Not Available hydrocodone 5 mg-acetamin ophen 325 mg tablet active Not Available Not Available No t Available metronidazo le 0.75 % (37.5 mg/5 gram) vaginal gel INSERT 1 APPLICATO RFUL VAGINALLY HS FOR 7 NIGHTS active Not Available Not Available No t Available ondansetron HCl 4 mg tablet TAKE 1 TABLET BY MOUTH EVERY 8 HOURS NEEDED FOR NAUSEA active Not Available Not Available No t Available prednisone 20 mg tablet Take 1 tablet twice a day by oral route. 05/12 completed Not Available Not Available Not Available sertraline 100 mg tablet active Not Available Not Available Not Available penicillin V potassium 500 mg tablet active Not Available Not Available Not Available metronidazo le 500 mg tablet TK 1 T PO BID active Not Available Not Available No t Available acetaminoph en 300 mg-codeine 30 mg tablet active Not Available Not Available Not Available valacyclovi r 500 mg tablet active Not Available Not Available Not Available tramadol 50 mg tablet TAKE 1 TABLET BY MOUTH EVERY 8 HOURS NEEDED FOR MODERATE TO SEVERE PAIN active Not Available Not Available No t Available amoxicillin 500 mg tablet 02/24 completed Not Available Not Available Not Available amoxicillin 875 mg tablet TK 1 T PO BID FOR 10 DAYS 02/24 completed Not Available Not Available Not Available clindamycin 1 % topical gel 02/24 completed Not Available Not Available Not Available doxycycline monohydrate 100 mg capsule TK 1 C PO BID FOR 7 DAYS 04/20 completed Not Available Not Available Not Available cephalexin 500 mg capsule 02/24 completed Not Available Not Available Not Available nitrofurant oin macrocrysta l 100 mg capsule TK 1 C PO BID 12/14 completed Not Available Not Available Not Available nicotine 21 mg/24 hr daily transdermal patch APPLY 1 PATCH ONCE D NEEDED 12/14 completed Not Available Not Available Not Available docusate sodium 100 mg capsule active Not Available Not Available N ot Available buspirone 7.5 mg tablet TK 1 T PO BID 04/20 completed Not Available Not Available Not Available montelukast 10 mg tablet TK 1 T PO D active Not Available Not Available No t Available azelastine 137 mcg (0.1 %) nasal spray Newnan 2 sprays twice a day by intranasa l route. 02/24 completed Not Available Not Available Not Available ibuprofen 600 mg tablet active Not Available Not Available Not Available levofloxaci n 500 mg tablet 02/24 completed Not Available Not Available Not Available methylpredn isolone 4 mg tablets in a dose pack FPD 12/14 completed Not Available Not Available Not Available albuterol sulfate HFA 90 mcg/actuati on aerosol inhaler INHALE 1 PUFF PO 3 TO 4 TIMES D PRN active Not Available Not Available No t Available ondansetron 4 mg disintegrat ing tablet active Not Available Not Available N ot Available cefdinir 300 mg capsule Take 1 capsule every 12 hours by oral route. 2022 active Not Available Not Available Not Avai lable fluticasone propionate 50 mcg/actuati on nasal spray,suspe nsion USE 2 SPRAYS IEN BID FOR 14 DAYS active Not Available Not Available No t Available clotrimazol e 1 % topical cream LOPEZ EXT TO THE AFFECTED AND SURROUNDI NG AREAS BID IN THE MORNING AND IN THE ALYSA 12/14 completed Not Available Not Available Not Available sertraline 50 mg tablet active Not Available Not Available Not Available metoclopram genia 10 mg tablet active Not Available Not Available Not Available amoxicillin 875 mg-potassiu m clavulanate 125 mg tablet 02/24 completed Not Available Not Available Not Available amoxicillin 500 mg-potassiu m clavulanate 125 mg tablet TK 1 T PO Q 12 H 12/14 completed Not Available Not Available Not Available nicotine 7 mg/24 hr daily transdermal patch 04/20 completed Not Available Not Available Not Available Ciprodex 0.3 %-0.1 % ear drops,suspe nsion INSTILL 4 DROPS INTO AFFECTED EAR(S) BY OTIC ROUTE 2 TIMES PER DAY FOR 7 DAYS 2022 active Not Available Not Available Not Avai lable nitrofurant oin monohydrate /macrocryst als 100 mg capsule active Not Available Not Available Not Available melatonin 10mg, 1 tab po every night 02/15 completed Not Available Not Available Not Available Symbicort 160 mcg-4.5 mcg/actuati on HFA aerosol inhaler active Not Available Not Available Not Available Symbicort 2020 active Not Available Not Available Not Avai lable OneTouch Verio test strips active Not Available Not Available Not Available Aerospan 80 mcg/actuati on HFA aerosol inhaler INHALE 2 PUFFS BID DIRECTED 04/20 completed Not Available Not Available Not Available Incruse Ellipta 62.5 mcg/actuati on powder for inhalation USE ONE PUFF PO QD 04/20 completed Not Available Not Available Not Available OneTouch Verio Flex Meter active Not Available Not Available Not Available Xhance 93 mcg/actuati on breath activated aerosol Newnan 1 spray twice a day by intranasa l route. active Not Available Not Available No t Available OneTouch Delica Plus Lancet 33 gauge active Not Available Not Available Not Available Vitals Date Recorded Body mass index (BMI) Body height Body temperature Body weight Provider Name and Address Organization Details Last Updated DateTime 01/14/2022 39.3 kg/m2 177.8 cm 97.2 [degF] 531017.3 1 g Not Available [facility] 09/01/2022 18:52:49 Date Recorded Body height Body mass index (BMI) Body weight Body temperature Provider Name and Address Organization Details Last Updated DateTime 02/24/2023 177.8 cm 35.3 kg/m2 700750.72 g 97.8 [degF] Tangela Phan RN [place] [employer] 02/24/2023 11:59:31 Date Recorded Body mass index (BMI) Body height Body temperature Body weight Provider Name and Address Organization Details Last Updated DateTime 03/25/2022 42.1 kg/m2 177.8 cm 97.5 [degF] 587418 g Not Available [facility] 09/01/2022 18:52:49 Date Recorded Body mass index (BMI) Body height Body temperature Body weight Provider Name and Address Organization Details Last Updated DateTime 05/12/2021 42.6 kg/m2 177.8 cm 98.3 [degF] 319182.9 3 g Not Available [facility] 09/01/2022 18:52:49 Social History Question Answer Notes LastModified by [employer] Details LastModified Time Tobacco Smoking Status Former Smoker Not Available [facility] 09/01/2022 18:52:26 In The 14 Days Before Symptom Onset, Have You Had Close Contact With A Laboratory-confirm ed COVID-19 While That Case Was Ill? No [id number] Information not available 09/01/2022 In The 14 Days Before Symptom Onset, Have You Had Close Contact With A Person Who Is Under Investigation For COVID-19 While That Person Was Ill? No [id number] Information not available 09/01/2022 Which Illicit Or Recreational Drugs Have You Used? Marijuana [id number] Information not available 09/01/2022 Have You Recently Traveled Abroad? No [id number] Information not available 09/01/2022 Sex: Female Functional Status Question Answer Note LastModified by [employer] Details LastModified Time Do you use any illicit or recreational drugs? Yes [id number] Information not available 09/01/2022 Do you or have you ever used any other forms of tobacco or nicotine? Yes [id number] Information not available 09/01/2022 What is your level of alcohol consumption? None [id number] Information not available 09/01/2022 Do you or have you ever used e-cigarettes or vape? Current user of electronic cigarettes [id number] Information not available 09/01/2022 Mental Status None recorded. Family History Relationship Description Onset Age of this Age Resolved Age Notes LastModified by Organization Details LastModified Time Father No current problems or disability [id number] Not available 09/01/2022 18:52:34 Mother No current problems or disability [id number] Not available 09/01/2022 18:52:34 Medical History Condition Response MRSA N SLEEP APNEA N ALLERGIES/HAYFEVER N LUNG DISEASE/DISORDER N HISTORY OF DRUG ABUSE N INSOMNIA N COPD N RADIATION / CHEMOTHERAPY N HIGH CHOLESTEROL / HYPERLIPIDEMIA Y HYPERTHYROIDISM N BLOOD DISEASES N EAR OR HEARING PROBLEMS N HYPOTHYROIDISM N SHINGLES N DEPRESSION (INCLUDING POST ) N HAVE YOU BEEN HOSPITALIZED OR SEEN [facility] IN THE PAST YEAR ? N STROKE/TIA N ULCERS N OBESITY N ANEURYSM N HISTORY WITH COMPLICATIONS WITH ANESTHES IA ? N USE OF BLOOD THINNERS N NO SIGNIFICANT PAST MEDICAL HISTORY N DIABETES, TYPE N PARATHYROID DISEASE N ENT N SEASONAL ALLERGIES N HEARTBURN / REFLUX N HEPATITIS / LIVER DISEASE N SLEEP DISORDER N SEIZURES/EPILEPSY Y HEADACHES/MIGRAINES N CHF N PACEMAKER N DIZZINESS N HEART DISEASE/HEART PROBLEMS N AIDS/HIV N FRACTURES N HYPERTENSION N CANCER: SPECIFY N TOURETTE'S N BLOOD TRANSFUSION N ANESTHESIA COMPLICATIONS N ANEMIA/BLOOD DISORDER N CHRONIC EAR INFECTIONS N TUBERCULOSIS N Gynecological HistoryNo gynecological history recorded. Obstetrics History GPAL:G 0 P 0 0 0 0 Past Encounters Encounter ID Performer Location Encounter Start Date Encounter Closed Date Diagnosis/Indication Diagnosis SNOMED-CT Code Diagnosis ICD10 Code Diagnosis IMO Codes Diagnosis Note [id number] [facility] [place] [address] [place] [address] 05/12/2021 00:00:00 05/12/2021 16:59:33 [id number] Sami Calderón MD [facility] [place] [address] [place] [address] 01/14/2022 00:00:00 01/14/2022 15:47:40 [id number] Sami Calderón MD [facility] [place] [address] [place] [address] 03/25/2022 00:00:00 03/25/2022 16:35:34 [id number] Salome Finley NP [facility] [address] [address] 02/10/2023 10:57:32 02/10/2023 13:26:44 [id number] Sami Calderón MD [facility] [place] [address] [place] [address] 02/24/2023 11:56:11 02/24/2023 12:34:23 Acute suppurative otitis media without spontaneous rupture of ear drum 20929662 H66.644 [id number] Salome Finley NP [facility] [address] [place] [address] [address] 03/10/2023 15:38:06 03/10/2023 16:26:08 [id number] Salome Finley NP [facility] [address] [place] [address] [address] 04/07/2023 15:40:18 04/07/2023 16:07:12 [id number] Salome Finley NP [facility] [address] [place] [address] [address] 05/05/2023 17:00:31 05/05/2023 17:54:52 [id number] Salome Finley NP [facility] [address] [place] [address] [address] 06/06/2023 17:38:01 06/06/2023 18:22:49 [id number] Salome iFnley NP [facility] [address] [place] [address] [address] 08/10/2023 15:21:19 08/10/2023 15:58:10 [id number] Salome Finley NP [facility] [address] [place] [address] [address] 01/02/2024 13:54:42 01/02/2024 15:10:12 [id number] Salome Finley NP [facility] [address] [place] [address] [address] 06/13/2024 16:01:30 06/13/2024 16:48:24 [id number] Salome Finley NP [facility] [address] [place] [address] [address] 10/02/2024 14:23:17 10/02/2024 15:19:40 Health Concerns Section Related Observation LastModified by Organization Detai ls LastModified Time None Recorded Concern Status LastModified by Organization Details LastModified Time None Recorded Advance Directives Directive None Recorded Payers Insurance Date Sequence Insurance Name Policy Number Policy Hdez Covered Member ID Hdez Member ID Guarantor Name 10/27/2024 1 [facility] - DOS ON OR AFTER 21 (MEDICAID REPLACEMENT - HMO) Shannanally Morrow [id number] Shannan Morrow Notes Date Note Type Note Provider Name and Address Organization Details Recorded Time 02/24/2023 text/html this patient has a history of PE tubes and the right ear has been draining for 2 months. She has been on drops the name of which he cannot recall without improvement. Sami Calderón MD [address] [place] [address], [facility] [address], [place], [address], [place] [employer] 02/24/2023 12:12:38 OBGyn Episode No OBEpisode recorded.
--- NOTE | 2025-06-20 14:07 | ED.FEMALEGU ---
HPI - Female Genitourinary General Chief complaint: Urogenital-Female Stated complaint: Std, bv testing Time Seen by Provider: 06/20/25 13:35 Source: patient and RN notes reviewed Mode of arrival: ambulatory Limitations: no limitations History of Present Illness HPI Narrative: 30-year-old female presents Express Care complaining of vaginal discharge 2 to 3 days. Patient also reports a concern for STDs. Patient has a history of bacterial vaginosis. Patient reports a foul-smelling discharge that is milky and whitish/clear in consistency. Patient also reports some dysuria. Patient has any pelvic pain, abdominal pain, nausea vomiting, diarrhea, chest pain, difficulty breathing, fevers, body aches, chills, vaginal bleeding, or other symptoms. Patient has had a month ago her PCP swab her for Trichomonas and BV and those were negative. Related Data Home Medications ?Medication ?Instructions ?Recorded ?Confirmed ?Last Taken ?Type budesonide-formoterol HFA 160 1 inh inhalation PRN PRN asthma 12/16/21 12/21/21 12/21/21 08:00 History mcg-4.5 mcg/actuation aerosol inhaler (Symbicort) aripiprazole 5 mg tablet mg 04/23/24 Unknown History bupropion HCl 150 mg 24 hr tablet, mg PO 06/20/25 Unknown History extended release sertraline 100 mg tablet mg 06/20/25 Unknown History Allergies Allergy/AdvReac Type Severity Reaction Status Date / Time cat dander Allergy Hives Verified 06/20/25 12:44 Sulfa (Sulfonamide Allergy Hives Verified 06/20/25 12:44 Antibiotics) Review of Systems Review of Systems: CONSTITUTIONAL: Denies fever, chills, or sweats. EYES: Denies visual changes, redness, or discharge. ENT: Denies rhinorrhea, congestion, sore throat, or otalgia. CARDIOVASCULAR: Denies chest pain, palpitations, or edema. RESPIRATORY: Denies cough or dyspnea. GASTROINTESTINAL: Denies abdominal pain, nausea, vomiting, or diarrhea. GENITOURINARY: Denies frequency, hesitancy, or hematuria. Positive for vaginal discharge and dysuria. SKIN: Denies rash or itching. MUSCULOSKELETAL: Denies back pain, joint pain, or myalgia. NEUROLOGIC: Denies headache, numbness, or weakness. PSYCHIATRIC: Denies anxiety or depression. All other systems reviewed are negative, except as documented in HPI. [facility] Past Medical History Medical History History of psychiatric treatment Depression Bipolar 1 disorder IBS (irritable bowel syndrome) delivery delivered Asthma Anxiety Surgical History Surgical History History of placement of ear tubes 2-3 times as child Hx of tonsillectomy History of cholecystectomy Family History Family History Mother Asthma Chronic obstructive pulmonary disease Bipolar 1 disorder Depression Father Bipolar 1 disorder Hypertension Grandparent Depression Heart disease Skin cancer Social History Social History Smoking status: Former smoker Tobacco type: cigars Second hand tobacco smoke exposure: No Alcohol intake: unknown Substance use: former Substance use type: does not use Last use: last time in october 2021 Gender identity (if verbalized by the patient): Female Spiritual care concerns: No Comments At the time of my signature, I reviewed and agree with the nursing past medical, surgical, social, and family history. There is no relevant family history pertinent to the patient complaint. Exam Narrative: GENERAL: This is a well-nourished, well-developed adult, in no apparent distress. They are non ill-appearing, nontoxic appearing. HEAD: normocephalic, atraumatic. EYES: Sclera clear/white. Conjunctiva normal. Vision is grossly intact. Extraocular movements intact EARS: External ears normal,Hearing grossly intact. NOSE: External nose normal THROAT: Mucous membranes moist, NECK: Neck supple, CARDIOVASCULAR: Regular rate and rhythm without murmurs, gallops, or rubs. RESPIRATORY: Clear to auscultation. Breath sounds equal bilaterally. No wheezes, rales, or rhonchi. GASTROINTESTINAL: Abdomen soft, non-tender, nondistended. GENITOURINARY: Deferred SKIN: warm, Dry, intact with no suspicious lesions or rash, good texture and turgor. NEURO: awake, alert, and oriented to person, place and time. There were no obvious focal neurologic abnormalities. EXTREMITIES: No joint tenderness, effusion, or edema noted. BACK: Nontender without deformity. No CVA tenderness. Course Course Level of Care: Express Care Visit MDM MDM Narrative Medical decision making narrative: Urine dipstick negative for any evidence of infection, urine cultures pending. Patient self vaginal swabbed for chlamydia, gonorrhea, Trichomonas, BV, and a genital culture. These results are pending. Patient would like to go ahead and start treatment for bacterial vaginosis. Will await further treatment until other cultures result. Prescription of Flagyl sent to pharmacy. Advised patient not drink alcohol a taking Flagyl, she states she does not drink. Advised follow-up with OBGYN. Discussed physical exam findings. Advised supportive measures and signs/symptoms to go to the ER. Pt is appropriate for outpt treatment and f/u. Differential Diagnosis Differential Diagnosis: STD, urinary tract infection, pyelonephritis, cystitis, vaginitis, vaginal yeast infection, bacterial vaginosis, vaginal discharge Lab Data MDM Lab Attestation statement: I personally reviewed the patient's lab results. Labs: Lab Results 06/20/25 Range/Units 13:08 POC Urine Color Dark POC Urine Clarity Cloudy POC Urine pH 6.0 POC Ur Specif [place] 1.030 POC Urine Protein Trace (Negative) POC Ur Glucose (UA) Negative (Negative) POC Urine Ketones Negative (Negative) POC Urine Blood Negative (Negative) POC Urine Nitrite Negative (Negative) POC Urine Bilirubin 1+ (Negative) POC Urine Urobilinogen 0.2 POC U Leukocyte Esteras Negative (Negative) Critical Care Time Critical Care Time Critical Care Time: No Discharge Plan Discharge Clinical Impression: Vaginal discharge Patient Disposition: Home Condition: Stable Instructions: Antibiotic Form, Bacterial Vaginosis (ED), Sexually Transmitted Diseases (ED) Additional Instructions: Swabs were sent off to test for yeast, bacterial vaginosis, gonorrhea, chlamydia, and trichomonas infections. ?These tests can take up to 1-5 days to come back. You Will be notified the results once they have resulted. Please remain abstinent until you know your results or have completed full treatment for an STD. Please take the Flagyl as directed. Urine was negative for evidence of infection a urine culture also be sent off and if it is positive for bacteria you will be contacted started on appropriate antibiotics. Follow-up with PCP or OBGYN in 3-5 days. If you any more comprehensive STD testing please contact the local health department. If your symptoms worsen, you developed fever, abdominal pain, nausea, vomiting, vaginal bleeding, pelvic pain or any other concerns please go to the ER immediately. Patient Language: Malaysian Prescriptions: New metronidazole 500 mg tablet 500 mg PO BID 7 Days Qty: 14 0RF No Action aripiprazole 5 mg tablet sertraline 100 mg tablet bupropion HCl 150 mg tablet extended release 24 hr PO budesonide-formoterol [Symbicort] 160-4.5 mcg/actuation HFA aerosol inhaler 1 inh INHALATION PRN PRN (Reason: asthma) Follow-up/Referrals: UNKNOWN,DOCTOR [Primary Care Provider] Time of Disposition: 13:52
[2025-06-20 19:46] LABS: Trichomonas Vag PCR NOT DETECTED (NOT DETECTE)
== END 2025-06-20 13:57 | disposition home or self-care (01) ==
DX: N89.8 Other specified noninflammatory disorders of vagina (principal); Z11.3 Encounter for screening for infections with a predominantly sexual mode of transmission; J45.909 Unspecified asthma, uncomplicated; F41.9 Anxiety disorder, unspecified; F32.A Depression, unspecified; Z87.891 Personal history of nicotine dependence
CPT/HCPCS: 81003; 87070; 87086; 87491; 87591; 87661; 87798; 99213; G0463